=== PATIENT | female | born 1965 | race Hispanic/Latino ===

== ENCOUNTER 2017-10-10 14:38 | Emergency (ER) | payer OTHER ==
--- OUTSIDE RECORDS SUMMARY | 2017-10-10 14:41 | XMS REPORT | Clinical Summary ---
:1965 Author Organization [facility] Address [address] [place] [address] Care Team Providers Name Role Phone Sheeba Smith MD Primary Care Provider Allergies Active Allergy Reactions Severity Noted Date Comments Aspirin Anaphylaxis High 08/26/2015 Ciprofloxacin Anaphylaxis High 08/26/2015 Fish Containing Products Shortness Of Breath High 08/26/2015 shellfish Iodine Anaphylaxis High 08/26/2015 Shellfish Derived Anaphylaxis High 08/26/2015 Hydrocodone-Acetaminophen Anaphylaxis High 08/26/2015 Current Medications Prescription Sig. Disp. Refills Start Date End Date Status CALCIUM Take 1 tablet Active CARBONATE-VITAMIN D3 by mouth 2 ORAL (two) times a day. amitriptyline 06/26/2017 Active (ELAVIL) 25 MG tablet DULoxetine 05/04/2017 Active (CYMBALTA) 60 MG capsule gabapentin 06/12/2017 Active (NEURONTIN) 600 mg tablet indomethacin 06/29/2017 Active (INDOCIN) 25 MG capsule OSPHENA 60 mg tablet 06/29/2017 Active topiramate (TOPAMAX) 04/24/2017 Active 50 MG tablet traMADol (ULTRAM) 50 06/26/2017 Active mg tablet traZODone (DESYREL) 06/21/2017 Active 150 MG tablet metaxalone Take 1 tablet 60 tablet 0 10/09/2017 10/29/2017 Active (SKELAXIN) 800 MG (800 mg tablet total) by mouth every 8 (eight) hours as needed for muscle spasms for up to 20 days. desvenlafaxine Take 100 mg 07/03/2017 Discontinued (PRISTIQ) 100 MG 24 by mouth hr tablet nightly. NORETHINDRONE-E.ESTR Take 1 tablet 07/03/2017 Discontinued ADIOL-IRON by mouth (MINASTRIN 24 FE nightly. ORAL) cetirizine (ZyrTEC) Take 10 mg by 07/03/2017 Discontinued 10 MG tablet mouth daily. potassium gluconate Take 1 tablet 07/03/2017 Discontinued 595 mg (99 mg) by mouth tablet every morning. omega-3 fatty Take 1 07/03/2017 Discontinued acids-fish oil (FISH capsule by OIL) 360-1,200 mg mouth 2 (two) capsule times a day. omeprazole Take 40 mg by 07/27/2017 Discontinued (PriLOSEC) 20 MG mouth daily. capsule BIOTIN ORAL Take 500 mg 07/03/2017 Discontinued by mouth nightly. coenzyme Q10 100 mg Take 100 mg 07/03/2017 Discontinued capsule by mouth nightly. theanine 50 mg Take 200 mg 07/03/2017 Discontinued tablet,disintegratin by mouth g every morning. omeprazole 06/05/2017 07/27/2017 Discontinued (PriLOSEC) 40 MG capsule Active Problems Problem Noted Date Cervical spondylosis with radiculopathy 10/02/2017 Post traumatic stress disorder (PTSD) 08/27/2015 Bipolar II disorder, most recent episode major depressive 08/26/2015 Encounters Date Type Specialty Care Team Description 10/09/2017 Orders Only Orthopedic Surgery Devin Horvath PA 10/02/2017 Office Visit Orthopedic Surgery Lalito Kiser Cervical spondylosis with radiculopathy (Primary Dx) 09/14/2017 Hospital Encounter Radiology Lalito Kiser Cervical spondylosis with radiculopathy 09/14/2017 Hospital Encounter Radiology Lalito Kiser Cervical spondylosis with radiculopathy 09/14/2017 Procedure visit Neurology Lalito Kiser, Cervical spondylosis with radiculopathy (Primary Dx); Left arm pain; Nam Duong MD Left arm weakness 09/07/2017 Telephone Family Medicine Sheeba Smith MD 08/28/2017 Hospital Encounter Lalito Irwin MD 08/28/2017 Office Visit Orthopedic Surgery Lalito Kiser Cervical spondylosis with radiculopathy (Primary Dx) 08/28/2017 Procedure Pass Radiology 08/28/2017 Procedure Pass Radiology 08/28/2017 Ancillary Orders Lalito Irwin MD 07/27/2017 Office Visit Family Medicine Sheeba Smith, Fatigue, unspecified type (Primary Dx); Chronic bilateral low back pain without sciatica; Chronic upper back pain; Dizziness 07/20/2017 Hospital Encounter Radiology Lit Mcallister MD Breast cyst, left; Breast cyst, right 07/20/2017 Hospital Encounter Radiology Lit Mcallister MD Breast cyst, left; Breast cyst, right 07/20/2017 Ancillary Orders Access Lit Mcallister MD Breast cyst, left; Breast cyst, right 07/03/2017 Office Visit Family Medicine Sheeba Smith, Acute nonintractable headache, unspecified headache type (Primary Dx); Fatigue, unspecified type; Chronic bilateral low back pain without sciatica; Chronic upper back pain; Dizziness; Poor balance; Nausea; Expressive dysphasia 06/30/2017 Transcribe Orders Access Lit Mcallister MD Breast cyst, left ( Primary Dx); Breast cyst, right 06/29/2017 Telephone Family Medicine Carol Hendrix MA after 10/09/2016 Family History Medical History Relation Name Comments Depression Brother Post-traumatic stress disorder Brother Colon polyps Father Diabetes Father Heart attack Father Osteoarthritis Father Diabetes Maternal Grandfather Heart attack Maternal Grandfather Dementia Maternal Grandmother Depression Maternal Grandmother Diabetes Maternal Grandmother Osteoarthritis Maternal Grandmother Breast cancer Mother Depression Mother Heart attack Paternal Grandfather Osteoarthritis Paternal Grandfather Asthma Paternal Grandmother Colon polyps Paternal Grandmother Osteoarthritis Paternal Grandmother Heart attack Sister Relation Name Status Comments Brother Alive Father Alive Maternal Grandfather Maternal Grandmother Mother Alive Paternal Grandfather Paternal Grandmother Sister Alive Social History Tobacco Use Types Packs/Day Years Used Date Former Smoker Smokeless Tobacco: Never Used Alcohol Use Drinks/Week oz/Week Comments No Sex Assigned at Date Recorded Not on file Last Filed Vital Signs Vital Sign Reading Time Taken Blood Pressure 120/68 07/27/2017 10:20 AM CDT Pulse 73 07/27/2017 10:20 AM CDT Temperature 37 C (98.6 F) 07/03/2017 11:22 AM CDT Respiratory Rate 16 07/27/2017 10:20 AM CDT Oxygen Saturation 96% 07/27/2017 10:20 AM CDT Inhaled Oxygen Concentration - - Weight 68.5 kg (151 lb) 08/28/2017 11:34 AM CDT Height 149.9 cm (4' 11") 08/28/2017 11:34 AM CDT Body Mass Index 30.5 08/28/2017 11:34 AM CDT Plan of Treatment Date Type Specialty Care Team Description 10/30/2017 Office [place] [address] [facility] [address] [place] [address] [phone] 11/01/2017 Office Visit [place] [address] [place] [address] [phone] 01/10/2018 [place] [address] [facility] [address] [place] [address] [phone] Health Maintenance Due Date Last Done Comments CERVICAL CANCER SCREENING 1988 COLON CANCER SCREENING 2017 SHINGRIX VACCINE (#1) 2017 INFLUENZA VACCINE 10/25/2017 BREAST CANCER SCREENING 07/21/2019 07/20/2017, 07/20/2017, 08/14/2015, Additional history exists Procedures Procedure Name Priority Date/Time Associated Diagnosis Comments MRI CERVICAL SPINE W Routine 09/14/2017 4:36 Cervical spondylosis Results for this WO CONTRAST PM CDT with radiculopathy procedure are in the results section. ESTIMATED GFR STAT 09/14/2017 3:15 Results for this PM CDT procedure are in the results section. CREATININE, WHOLE STAT 09/14/2017 3:15 Results for this BLOOD PM CDT procedure are in the results section. CT CERVICAL SPINE WO Routine 09/14/2017 3:11 Cervical spondylosis Results for this CONTRAST PM CDT with radiculopathy procedure are in the results section. XR CERVICAL SPINE Routine 08/28/2017 10:29 Neck pain Results for this COMPLETE W FLEX EXT AM CDT procedure are in the results section. US BREAST COMPLETE Routine 07/20/2017 11:31 Breast cyst, left Results for this BILATERAL AM CDT Breast cyst, right procedure are in the results section. MAMMO BREAST Routine 07/20/2017 11:08 Breast cyst, left Results for this DIAGNOSTIC AM CDT Breast cyst, right procedure are in TOMOSYNTHESIS the results BILATERAL section. SEDIMENTATION RATE Routine 07/03/2017 12:00 Results for this AM CDT procedure are in the results section. RHEUMATOID FACTOR Routine 07/03/2017 12:00 Results for this AM CDT procedure are in the results section. VITAMIN D 25 HYDROXY Routine 07/03/2017 12:00 Results for this LEVEL AM CDT procedure are in the results section. HEMOGLOBIN A1C Routine 07/03/2017 12:00 Results for this AM CDT procedure are in the results section. T4, FREE Routine 07/03/2017 12:00 Results for this AM CDT procedure are in the results section. THYROID STIMULATING Routine 07/03/2017 12:00 Results for this HORMONE AM CDT procedure are in the results section. VITAMIN B12 AND Routine 07/03/2017 12:00 Results for this FOLATE AM CDT procedure are in the results section. LIPID PANEL Routine 07/03/2017 12:00 Results for this AM CDT procedure are in the results section. COMPREHENSIVE Routine 07/03/2017 12:00 Results for this METABOLIC PANEL AM CDT procedure are in the results section. CBC WITH PLATELET AND Routine 07/03/2017 12:00 Results for this DIFFERENTIAL AM CDT procedure are in the results section. MRI SPINE EXTERNAL Routine 01/05/2017 5:36 Results for this STUDY PM CDT procedure are in the results section. after 10/09/2016 Results MRI Cervical Spine W Wo Contrast (09/14/2017 4:36 PM) Narrative Performed At EXAMINATION: MRI CERVICAL SPINE W WO CONTRAST [facility] CLINICAL HISTORY: M47.22 Other spondylosis with radiculopathycervical region, Cervical radiculopathy COMPARISON:None TECHNIQUE: Multiplanar multisequence pre and post contrast enhanced examination was performed of the cervical spine. FINDINGS: Prior posterior fossa midline decompression changes are noted for Chiari malformation. Postcontrast enhanced imaging shows no enhancing abnormality. Spinal cord is intact without signal change. Prevert ebral soft tissues are within normal limits. Soft tissue shows no mass or adenopathy. There is mild degenerative 2 mm retrolisthesis of C5. Axial images through the disc spaces demonstrate the following: C1-C2: There is narrowing of the atlantoaxial interval with spurring. There is no significant stenosis. C2-C3: No significant posterior disc disease, spinal canal or neural foraminal stenosis. C3-C4: Uncovertebral arthrosis and facet disease is present with minimal right foraminal narrowing. C4-C5: Uncovertebral arthrosis and facet disease is present with mild right and minimal left foraminal narrowing. The canal is patent. C5-C6: There is loss of disc height, retrolisthesis C5 and posterior spondylosis with effacement of ventral thecal sac with AP dimension canal at 8.4 mm. The posterior spondylosis is calcified from disc osteophyte complex calcification noted on prior CT. Uncovertebral arthrosis and facet disease is present with severe right foraminal and. Correlate for encroachment of the right C6 nerve root. The left foramen is mild moderately stenotic. C6-C7: There is loss of disc height with posterior spondylosis with minimal canal narrowing to approximately 9.9 mm. Uncovertebral arthrosis and facet disease results in mild to moderate right foraminal narrowing. Left foramen is patent. Correlate for possible encroachment of the right nerve root. C7-T1: There is 1 mm anterolisthesis C7. There is no stenosis. No significant posterior disc disease, spinal canal or neural foraminal stenosis at other visualized levels. IMPRESSION: 1.Postoperative changes are noted with midline posterior fossa decompression for Chiari malformation. No abnormal enhancing lesion or mass identified. The spinal cord is intact. 2.Spondylosis is most prominent at C5-6 with mild canal narrowing. There is severe right and mild to moderate left foraminal narrowing. Correlate for associated radiculopathies. 3.There is mild to moderate right foraminal narrowing. There is minimal effacement thecal sac as well. [id number] Procedure Note Hm Interface, Radiology Results - 09/14/2017 6:59 PM CDT EXAMINATION: MRI CERVICAL SPINE W WO CONTRAST CLINICAL HISTORY: M47.22 Other spondylosis with radiculopathy cervical region , Cervical radiculopathy COMPARISON: None TECHNIQUE: Multiplanar multisequence pre and post contrast enhanced examination was performed of the cervical spine. FINDINGS: Prior posterior fossa midline decompression changes are noted for Chiari malformation. Postcontrast enhanced imaging shows no enhancing abnormality. Spinal cord is intact without signal change. Prevertebral soft tissues are within normal limits. Soft tissue shows no mass or adenopathy. There is mild degenerative 2 mm retrolisthesis of C5. Axial images through the disc spaces demonstrate the following: C1-C2: There is narrowing of the atlantoaxial interval with spurring. There is no significant stenosis. C2-C3: No significant posterior disc disease, spinal canal or neural foraminal stenosis. C3-C4: Uncovertebral arthrosis and facet disease is present with minimal right foraminal narrowing. C4-C5: Uncovertebral arthrosis and facet disease is present with mild right and minimal left foraminal narrowing. The canal is patent. C5-C6: There is loss of disc height, retrolisthesis C5 and posterior spondylosis with effacement of ventral thecal sac with AP dimension canal at 8.4 mm. The posterior spondylosis is calcified from disc osteophyte complex calcification noted on prior CT. Uncovertebral arthrosis and facet disease is present with severe right foraminal and. Correlate for encroachment of the right C6 nerve root. The left foramen is mild moderately stenotic. C6-C7: There is loss of disc height with posterior spondylosis with minimal canal narrowing to approximately 9.9 mm. Uncovertebral arthrosis and facet disease results in mild to moderate right foraminal narrowing. Left foramen is patent. Correlate for possible encroachment of the right nerve root. C7-T1: There is 1 mm anterolisthesis C7. There is no stenosis. No significant posterior disc disease, spinal canal or neural foraminal stenosis at other visualized levels. IMPRESSION: 1. Postoperative changes are noted with midline posterior fossa decompression for Chiari malformation. No abnormal enhancing lesion or mass identified. The spinal cord is intact. 2. Spondylosis is most prominent at C5-6 with mild canal narrowing. There is severe right and mild to moderate left foraminal narrowing. Correlate for associated radiculopathies. 3. There is mild to moderate right foraminal narrowing. There is minimal effacement thecal sac as well. [facility]-[id number] Performing Organization Address City/State/Zipcode Phone Number [facility] [address] [place] [address] Creatinine, whole blood (09/14/2017 3:15 PM) Creatinine, whole blood 0.9 0.5 - 1.5 mg/dL [facility] DEPARTMENT OF PATHOLOGY AND [employer] MEDICINE Specimen Plasma specimen Performing Organization Address City/State/Zipcode Phone Number [facility] DEPARTMENT OF PATHOLOGY [address] [place] [address] AND [employer] MEDICINE Estimated GFR (09/14/2017 3:15 PM) GFR Non Af Amer 66 mL/min/1.73 m2 [facility] DEPARTMENT OF PATHOLOGY AND GENOMIC MEDICINE GFR Af Amer 80 mL/min/1.73 m2 [facility] DEPARTMENT OF Comment: PATHOLOGY AND GENOMIC Chronic kidney disease: <60 mL/min/1.73m2 MEDICINE Kidney failure: <15 mL/min/1.73m2 The estimated GFR is calculated from the IDMS-traceable Modification of Diet in Renal Disease Equation. The accuracy of the calculation is poor when the creatinine is normal. Calculated values >90 mL/min/1.73m2 are not reported. This equation has not been validated in children (<18 years), women, the elderly (>70 years), or ethnic groups other than Caucasians and Americans. Specimen Plasma specimen Performing Organization Address City/State/Zipcode Phone Number [facility] DEPARTMENT OF PATHOLOGY [address] [facility] [place] [address] AND [employer] [facility] CT Cervical Spine Wo Contrast (09/14/2017 3:11 PM) Narrative Performed At Study: CT CERVICAL SPINE WO CONTRAST. RADIANT HISTORY: M47.22 Other spondylosis with radiculopathycervical region, Cervical radiculopathy. COMPARISON:Cervical spine x-ray August 28, 2017 TECHNIQUE: Multiple axial CT images of the cervical spine performed without intravenous contrast. Sagittal and coronal reconstructions performed. CT imaging was performed with iterative reconstruction technique and/or automated exposure control to reduce radiation dose. FINDINGS: There is mild straightening of the cervical lordosis stable from the prior exam. Vertebral body heights are within normal limits. Degenerative retrolisthesis by 1 mm stable at C5-6. No significant subluxations are seen otherwise. Mineralization is normal. No erosions. C2-3: The disc heights maintained with a very shallow disc bulge. No canal or foraminal stenosis. C3-4: Mild disc height loss with a broad shallow disc protrusion. There is very mild canal narrowing. No foraminal stenosis. C4-5: There is mild disc height loss with a broad shallow disc bulge. No canal stenosis. No foraminal stenosis. C5-6: Severe disc height loss with a broad shallow disc osteophyte complex and mild canal stenosis. Uncovertebral arthrosis and facet arthrosis result in severe right and moderate left foraminal stenosis. C6-7: There is mild disc height loss with a broad shallow disc bulge. No canal stenosis. No foraminal stenosis. C7/T1: Mild disc height loss without obvious disc protrusion. No canal or foraminal stenosis. The paravertebral soft tissues are unremarkable. IMPRESSION: Mild canal stenosis at C5-6 from a shallow disc osteophyte complex. Spondylosis results in severe right and moderate left foraminal stenosis at this level. Mild canal stenosis at C3-4 from a broad shallow disc protrusion. [id number] Procedure Note Hm Interface, Radiology Results - 09/14/2017 3:41 PM CDT Study: CT CERVICAL SPINE WO CONTRAST. HISTORY: M47.22 Other spondylosis with radiculopathy cervical region, Cervical radiculopathy. COMPARISON:Cervical spine x-ray August 28, 2017 TECHNIQUE: Multiple axial CT images of the cervical spine performed without intravenous contrast. Sagittal and coronal reconstructions performed. CT imaging was performed with iterative reconstruction technique and/or automated exposure control to reduce radiation dose. FINDINGS: There is mild straightening of the cervical lordosis stable from the prior exam. Vertebral body heights are within normal limits. Degenerative retrolisthesis by 1 mm stable at C5-6. No significant subluxations are seen otherwise. Mineralization is normal. No erosions. C2-3: The disc heights maintained with a very shallow disc bulge. No canal or foraminal stenosis. C3-4: Mild disc height loss with a broad shallow disc protrusion. There is very mild canal narrowing. No foraminal stenosis. C4-5: There is mild disc height loss with a broad shallow disc bulge. No canal stenosis. No foraminal stenosis. C5-6: Severe disc height loss with a broad shallow disc osteophyte complex and mild canal stenosis. Uncovertebral arthrosis and facet arthrosis result in severe right and moderate left foraminal stenosis. C6-7: There is mild disc height loss with a broad shallow disc bulge. No canal stenosis. No foraminal stenosis. C7/T1: Mild disc height loss without obvious disc protrusion. No canal or foraminal stenosis. The paravertebral soft tissues are unremarkable. IMPRESSION: Mild canal stenosis at C5-6 from a shallow disc osteophyte complex. Spondylosis results in severe right and moderate left foraminal stenosis at this level. Mild canal stenosis at C3-4 from a broad shallow disc protrusion. [id number] Performing Organization Address [facility] Phone Number [facility] [address] [place] [address] XR Cervical Spine Complete w flex/ext (08/28/2017 10:29 AM) Narrative Performed At 7 views of the cervical spine are reviewed.These demonstrate [facility] satisfactory coronal balance although the patient is slightly to her right.Sagittal balance is well maintained.There is marked disc space narrowing at C5-C6 with posterior osteophyte formation.Somewhat less disc space degeneration is present at C6-C7.There is no evidence of instability on flexion-extension views.Oblique views demonstrate significant foraminal stenosis at C5-6 due to uncovertebral osteophyte bilaterally.The remaining neural foramen appear to be satisfactorily patent.There is no evidence of acute fracture or subluxation.Odontoid view is unremarkable aside from 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 Computer aided detection with tomosynthesis was utilized for the interpretation. HISTORY:52-year-old female with bilateral breast pain. COMPARISON: 08/14/2015-06/11/2013. DENSITY: The breast are heterogenously dense, which may obscure small masses. MAMMOGRAM: There is a stable group of calcifications in the left upper inner quadrant at middle depth. No new suspicious mass, asymmetry or architectural distortion in either breast. ULTRASOUND: There are a few scattered benign simple cysts in both breasts. No suspicious mass or acoustic abnormality in either breast. IMPRESSION:No mammographic or sonographic evidence of malignancy RECOMMENDATION: Resumption of annual mammography and clinical correlation for the bilateral breast pain. BI-RADS 2: BENIGN DWS01 Performing Organization Address [facility] Phone Number [facility] [address] [place] [address] Mammo Breast Diagnostic Tomosynthesis Bilateral (07/20/2017 11:08 AM) Narrative Performed At PROCEDURE: MAMMO BREAST DIAGNOSTIC TOMOSYNTHESIS BILATERAL, US BREAST RADIANT COMPLETE BILATERAL Bilateral real-time whole breast sonography included all four quadrants and the retroareolar regions under close supervision by the radiologist. Computer aided detection with tomosynthesis was utilized for the interpretation. HISTORY:52-year-old female with bilateral breast pain. COMPARISON: 08/14/2015-06/11/2013. DENSITY: The breast are heterogenously dense, which may obscure small masses. MAMMOGRAM: There is a stable group of calcifications in the left upper inner quadrant at middle depth. No new suspicious mass, asymmetry or architectural distortion in either breast. ULTRASOUND: There are a few scattered benign simple cysts in both breasts. No suspicious mass or acoustic abnormality in either breast. IMPRESSION:No mammographic or sonographic evidence of malignancy RECOMMENDATION: Resumption of annual mammography and clinical correlation for the bilateral breast pain. BI-RADS 2: BENIGN DWS01 Performing Organization Address [facility] Phone Number [facility] [address] [place] [address] Vitamin B12 and Folate (07/03/2017) Vitamin B12 437 232 - 1,245 pg/mL [facility] Folate 4.6 >3.0 ng/mL [facility] Comment: A serum folate concentration of less than 3.1 ng/mL is considered to represent clinical deficiency. Narrative Performed At Performed at:01 - [facility] [address], [id number] Volleyball Coach: Donn Hobbs MD, Phone:[phone] Performing Organization Address [facility] Phone Number [facility] Vitamin D 25 hydroxy level (07/03/2017) Vitamin D, 25-hydroxy 23.6 (L) 30.0 - 100.0 ng/mL [facility] Comment: Vitamin D deficiency has been defined by the [place] of [employer] and an Endocrine Society practice guideline as a level of serum 25-OH vitamin D less than 20 ng/mL (1,2). The Endocrine Society went on to further define vitamin D insufficiency as a level between 21 and 29 ng/mL (2). 1. IOM ([place] of Medicine). 2010. Dietary reference intakes for calcium and D. [place]: The National Academies Press. 2. Dolly MF, Denny ARRINGTON, Gin NELSON, et al. Evaluation, treatment, and prevention of vitamin D deficiency: an Endocrine Society clinical practice guideline. JCEM. 2010; 96(2):4061-30. Narrative Performed At Performed at:01 - [facility] [address], [id number] Volleyball Coach: Donn Hobbs MD, Phone:[phone] Performing Organization Address The [facility] Phone Number [facility] Sedimentation rate (07/03/2017) Sedimentation rate 2 0 - 40 mm/hr [facility] Narrative Performed At Performed at:01 - [facility] [address], [id number] Volleyball Coach: Donn Hobbs MD, Phone:[phone] Performing Organization Address [facility] [place] Phone Number [facility] CBC with platelet and differential (07/03/2017) WBC 6.9 3.4 - 10.8 x10E3/uL [facility] RBC 4.70 3.77 - 5.28 x10E6/uL [facility] HGB 13.5 11.1 - 15.9 g/dL [facility] HCT 40.6 34.0 - 46.6 % [facility] MCV 86 79 - 97 fL [facility] MCH 28.7 26.6 - 33.0 pg [facility] MCHC 33.3 31.5 - 35.7 g/dL [facility] RDW 14.8 12.3 - 15.4 % [facility] Platelet count 295 150 - 379 x10E3/uL [facility] Neutrophils 53 Not Estab. % [facility] Lymphocytes 40 Not Estab. % [facility] Monocytes 5 Not Estab. % [facility] Eosinophils 2 Not Estab. % [facility] Basophils 0 Not Estab. % [facility] Neutrophils, absolute 3.5 1.4 - 7.0 x10E3/uL [facility] Lymphocytes, absolute 2.8 0.7 - 3.1 x10E3/uL [facility] Monocytes, absolute 0.4 0.1 - 0.9 x10E3/uL [facility] Eosinophils, absolute 0.2 0.0 - 0.4 x10E3/uL [facility] Basophils, absolute 0.0 0.0 - 0.2 x10E3/uL [facility] Immature granulocytes 0 Not Estab. % [facility] Immature grans (abs) 0.0 0.0 - 0.1 x10E3/uL [facility] Narrative Performed At Performed at:[address] [place], [place] [id number] Volleyball Coach: Donn Hobbs MD, Phone:[phone] Specimen Comment: A duplicate report has been generated due to demographic updates. Performing Organization Address [facility] [place] [facility] Phone Number [facility] Rheumatoid factor (07/03/2017) Rheumatoid arthritis latex turbid <10.0 0.0 - 13.9 IU/mL [facility] Narrative Performed At Performed at:[address] [place], [place] [id number] Volleyball Coach: Donn Hobbs MD, Phone:[phone] Performing Organization Address [facility] [place] Phone Number [facility] Thyroid stimulating hormone (07/03/2017) TSH 1.200 0.450 - 4.500 uIU/mL [facility] Narrative Performed At Performed at:[address] [place], [place] [id number] Volleyball Coach: Donn Hobbs MD, Phone:[phone] Performing Organization Address [facility] [place] Phone Number [facility] T4, free (07/03/2017) T4, free 0.97 0.82 - 1.77 ng/dL [facility] Narrative Performed At Performed at:[address] [place], [place] [id number] Volleyball Coach: Donn Hobbs MD, Phone:[phone] Performing Organization Address [facility] [place] Phone Number [facility] Hemoglobin A1c (07/03/2017) Hemoglobin A1C 6.1 (H) 4.8 - 5.6 % [facility] Comment: Pre-diabetes: 5.7 - 6.4 Diabetes: >6.4 Glycemic control for adults with diabetes: <7.0 Narrative Performed At Performed at:[address] [place], [place] [id number] Volleyball Coach: Donn Hobbs MD, Phone:[phone] Performing Organization Address [facility] [place] Phone Number [facility] Lipid panel (07/03/2017) Cholesterol 215 (H) 100 - 199 mg/dL [facility] Triglycerides 193 (H) 0 - 149 mg/dL [facility] HDL cholesterol 51 >39 mg/dL [facility] VLDL cholesterol sam 39 5 - 40 mg/dL [facility] LDL cholesterol calculated 125 (H) 0 - 99 mg/dL [facility] Non-HDL cholesterol 164 (H) 0 - 129 mg/dL [facility] Narrative Performed At Performed at:01 - [facility] [address], [id number] Volleyball Coach: Donn Hobbs MD, Phone:[phone] Performing Organization Address [facility] [place] Phone Number [facility] Comprehensive metabolic panel (07/03/2017) Glucose 94 65 - 99 mg/dL [facility] BUN, whole blood 12 6 - 24 mg/dL [facility] Creatinine 0.78 0.57 - 1.00 mg/dL [facility] EGFR Non-Afr. Sammarinese 89 >59 mL/min/1.73 [facility] EGFR 103 >59 mL/min/1.73 [facility] BUN/creatinine ratio 15 9 - 23 [facility] Sodium 143 134 - 144 mmol/L [facility] Potassium 4.0 3.5 - 5.2 mmol/L [facility] Chloride 104 96 - 106 mmol/L [facility] CO2 21 18 - 29 mmol/L [facility] Calcium 9.0 8.7 - 10.2 mg/dL [facility] Protein 6.8 6.0 - 8.5 g/dL [facility] Albumin, S 4.5 3.5 - 5.5 g/dL [facility] Globulin, total 2.3 1.5 - 4.5 g/dL [facility] Albumin/globulin ratio 2.0 1.2 - 2.2 [facility] Total bilirubin 0.3 0.0 - 1.2 mg/dL [facility] Alkaline phosphatase 58 39 - 117 IU/L [facility] AST 13 0 - 40 IU/L [facility] ALT 13 0 - 32 IU/L [facility] Narrative Performed At Performed at: - [facility] [address], [id number] Volleyball Coach: Donn Hobbs MD, Phone:[phone] Performing Organization Address City/State/Zipcode Phone Number [facility] MRI Spine External Study (01/05/2017 5:36 PM) Narrative Performed At This exam was not acquired at a [facility] facility and has not been [facility] interpreted by a [employer] Provider.The exam was imported into our imaging system for comparisons purposes. Performing Organization Address City/[facility]/Zipcode Phone Number [facility] [address] [place] [address] after 10/09/2016 Insurance Payer Benefit Plan / Group Subscriber ID Type Phone Address [facility] CHOICE/CHOICE + xxxxxxxxx HMO/PPO Home: [facility] [phone] [place], [place] [phone]
--- NOTE | 2017-10-10 15:33 | RAD REPORT ---
EXAM DESCRIPTION: CT - Head Brain Wo Cont - 10/10/2017 3:21 pm CLINICAL HISTORY: Pain, headache COMPARISON: June 2016 TECHNIQUE: Axial helical acquisition with 5 millimeter thick images of the head were obtained withou t IV contrast. Thin section sagittal and coronal imaging in bone window settings generated and review ed. All CT scans are performed using dose optimization technique as appropriate and may include automated exposure control or mA/KV adjustment according to patient size. FINDINGS: No intracranial hemorrhage, mass, edema or shift of mid-line structures. No acute infarcti on changes seen. No abnormal extra-axial fluid collections. Ventricles are normal. Mastoid air cells and visualized portions of the paranasal sinuses are clear. No acute bone findings seen. The patient is status post suboccipital craniectomy. Posterior arch of C 1 is incomplete and this may be a normal variant or surgical resection. Patient's cerebellar tonsils are relatively low-lying. Postsurgical changes are similar to the comparison. IMPRESSION: Negative non-contrast CT head examination for acute finding. Postsurgical changes presumed to be related to tonsillar ectopia/Chiari 1 malformation. No significant change from June 2016.
[2017-10-10] MEDS ORDERED: FENTANYL CITR 100 MCG/2 ML ONE (15:49)
[2017-10-10] MEDS ORDERED: ONDANSETRON 4 MG/2 ML VIAL ONE ×2 (15:49→18:04)
[2017-10-10] MEDS ORDERED: NA CHLORIDE 0.9% 1,000 ML ONE (15:49)
[2017-10-10 16:08] LABS: Absolute Lymphocytes (CBC) 2.9 K/uL (0.7-4.9); Absolute Monocytes 0.4 K/uL (0.1-1.3); Absolute Neutrophil 2.8 K/uL (1.8-8.0); Basophils % 0.9 % (0-1.3); Eosinophils % 2.2 % (0-4.4); Hematocrit 35.1 % (36.0-45.0); Lymphocytes % 46.2 % (15.3-44.8); MCH 29.6 pg (27.0-35.0); MCV 87.8 fL (80-100); MPV 8.4 fL (7.6-11.3); Monocytes % 6.1 % (3.3-12.3); RBC Red Blood Cell Count 3.99 M/uL (3.86-4.86)
--- NOTE | 2017-10-10 16:28 | RAD REPORT ---
EXAM DESCRIPTION: RAD - Chest Single View - 10/10/2017 4:10 pm CLINICAL HISTORY: COUGH Chest pain. COMPARISON: Chest Single View dated 03/17/2016; Chest Single View dated 08/20/2015; CHEST PA AND LAT 2 VIEW dated 08/15/2012Chest Single View dated 03/17/2016; Chest Single View dated 08/20/2015; CHEST PA AND LAT 2 VIEW dated 08/15/2012; Outpt Chest Pa/Lat (2 Views) dated 01/30/2017 FINDINGS: Portable technique limits examination quality. The lungs are grossly clear. The heart is normal in size. No displaced fractures. IMPRESSION: No acute intrathoracic process suspected.
[2017-10-10 16:32] LABS: ALT/SGPT 16 U/L (12-78); AST/SGOT 12 U/L (15-37); Albumin 3.1 g/dL (3.4-5.0); Alkaline Phosphatase 62 U/L (45-117); BUN Blood Urea Nitrogen 13 mg/dL (7-18); Bicarbonate 27 mmol/L (21-32); Bilirubin Direct < 0.1 mg/dL (0-0.2); Bilirubin Total 0.2 mg/dL (0.2-1.0); CKMB Creatine Kinase MB < 1.0 ng/mL (0.3-3.6); Creatine Phosphokinase 43 U/L (26-192); Glucose Level 107 mg/dL (74-106); NT PRO-BNP 17 pg/mL (<125); Potassium 3.6 mmol/L (3.5-5.1); Protein, Total 6.3 g/dL (6.4-8.2); Sodium Level 144 mmol/L (136-145)
[2017-10-10 16:42] LABS: Urine Blood NEGATIVE (NEG); Urine Glucose NEGATIVE (NEG); Urine Protein NEGATIVE (NEG); Urine Specific Gravity 1.025 (1.005-1.030)
[2017-10-10 16:42] LABS: Urine Specific Gravity 1.025 (1.005-1.030)
[2017-10-10] MEDS ORDERED: HYDROMORPHONE HCL 1 MG/ML INJ ONE (17:17)
--- NOTE | 2017-10-10 18:34 | ER ---
Nurse's Notes [facility] Name: Jennifer Jansen Age: 52 yrs Sex: Female : 1965 Arrival Date: 10/10/2017 Time: 14:44 Bed 13 Private MD: Diagnosis: Headache;Strain of muscle, fascia and tendon at neck level Presentation: 10/10 14:44 Presenting complaint: EMS states: pt was at [facility] rehab for pain mgmt, hx of tumor iw removal in 2014, hx of Chiari malformation, pt c/o weakness since yesterday, mild headache sine yesterday, pain worse today, pain radiates from right posterior neck up to jaw and into right side of head, 01/03, also has had "bouts of aphasia" that have resolved, pt vomited X 2 en route to ER. Transition of care: patient was not received from another setting of care. Onset of symptoms was October 09, 2017. Risk Assessment: Do you want to hurt yourself or someone else? Patient reports no desire to harm self or others. Initial Sepsis Screen: Does the patient meet any 2 criteria? No. Patient's initial sepsis screen is negative. Does the patient have a suspected source of infection? No. Patient's initial sepsis screen is negative. Care prior to arrival: Medication(s) given: zofran 4 mg, IV initiated. 20 GA, in the right antecubital area, Glucose check: 119. 14:44 Method Of Arrival: EMS: [facility] iw 14:44 Acuity: ARTHUR 3 iw Historical: - Allergies: 14:50 Aspirin; iw 14:50 Ciprofloxacin; iw 14:50 Iodine; iw 14:50 Propranolol; iw 14:50 shellfish derived; iw 14:50 sulfamethoxazole; iw 14:50 TRIMETHOPRIM; iw - PMHx: 14:50 chiari malformation; pseudoseizures; iw - PSHx: 14:50 Cholecystectomy; Knee surgery; Brain sx; C1 laminectomy; iw - Immunization history:: Adult Immunizations up to date. - Ebola Screening: : Patient negative for fever greater than or equal to 101.5 degrees Fahrenheit, and additional compatible Ebola Virus Disease symptoms Patient denies exposure to infectious person Patient denies travel to an Ebola-affected area in the 21 days before illness onset No symptoms or risks identified at this time. - Social history:: Smoking status: Patient/guardian denies using tobacco. - Family history:: not pertinent. Screenin:14 Abuse screen: Denies threats or abuse. Denies injuries from another. Nutritional aj screening: No deficits noted. Tuberculosis screening: No symptoms or risk factors identified. Fall Risk None identified. Assessment: 15:14 General: Appears in no apparent distress. comfortable, Behavior is calm, cooperative, aj appropriate for age. Pain: Complains of pain in right occipital area, right ear, right yazidism, right eye, right base of the skull, right low back and right quadriceps. Neuro: Level of Consciousness is awake, alert, obeys commands, Oriented to person, place, time, situation, Appropriate for age Building Official are equal bilaterally Moves all extremities. Full function Speech is normal, Facial symmetry appears normal, Pupils are PERRLA, Reports headache. Neuro: Reports blurred vision. Respiratory: Airway is patent Respiratory effort is even, unlabored, Respiratory pattern is regular, symmetrical. Derm: Skin is intact, is healthy with good turgor, Skin is pink, warm \\T\\ dry. normal. 17:30 Reassessment: Report received from LISA Martinez. Pt currently in MRI. aa5 17:50 Reassessment: Pt back from MRI. aa5 17:55 General: Appears comfortable, Behavior is calm, cooperative. Pain: Complains of pain in aa5 right side of head and face Pain currently is 8 out of 10 on a pain scale. Quality of pain is described as sharp, Is continuous. Neuro: Level of Consciousness is awake, alert, obeys commands, Oriented to person, place, time, situation, Building Official are equal bilaterally Moves all extremities. Speech is normal, Facial symmetry appears normal, Pupils are PERRLA, Reports headache. Cardiovascular: Heart tones S1 S2 present Rhythm is regular. Respiratory: Airway is patent Respiratory effort is even, unlabored, Respiratory pattern is regular, symmetrical, Breath sounds are clear bilaterally. GI: Abdomen is round non-distended, Bowel sounds present X 4 quads. Abd is soft and non tender X 4 quads. Reports nausea, vomiting. : No signs and/or symptoms were reported regarding the genitourinary system. EENT: No signs and/or symptoms were reported regarding the EENT system. Derm: Skin is pink, warm \\T\\ dry. Musculoskeletal: Range of motion: intact in all extremities. 18:00 Reassessment: Dr. Nelson notified of pt's complaint of nausea. . aa5 18:55 Reassessment: Patient is alert, oriented x 3, equal unlabored respirations, skin aa5 warm/dry/pink. Vital Signs: 14:49 BP 111 / 75; Pulse 73; Resp 16; Pulse Ox 99% on R/A; Weight 70.31 kg; Height 4 ft. 10 iw in. (147.32 cm); Pain 10/10; 15:50 BP 113 / 84; Pulse 72; Resp 16; Pulse Ox 100% on R/A; mh5 16:31 BP 110 / 64; Pulse 66; Resp 16; Pulse Ox 100% on R/A; aj 17:49 BP 128 / 74; Pulse 58; Resp 17; Pulse Ox 100% on R/A; mh5 18:00 BP 105 / 56; Pulse 64; Resp 16 S; Temp 97.6(TE); Pulse Ox 100% on R/A; Pain 8/10; aa5 18:45 BP 105 / 58; Pulse 62; Resp 16 S; Pulse Ox 99% on R/A; aa5 14:49 Body Mass Index 32.39 (70.31 kg, 147.32 cm) iw ED Course: 14:44 Patient arrived in ED. iw 14:45 Corey Nelson MD is Attending Physician. [facility] 14:48 Michelle Oliver, RN is Primary Nurse. aj 14:49 Triage completed. iw 15:14 Patient has correct armband on for positive identification. aj 15:14 No provider procedures requiring assistance completed. Maintain EMS IV. Dressing aj intact. Gauge \\T\\ site: 20 to right AC. 15:21 CT Head Brain wo Cont In Process Unspecified. EDMS 15:21 CT completed. Patient tolerated procedure well. Patient moved to CT. Patient moved back mw3 from CT. 16:01 EKG done, by optical laboratory technician. reviewed by Corey Nelson MD. 3 16:08 X-ray completed. Portable x-ray completed in exam room. Patient tolerated procedure bb2 well. 16:09 XRAY Chest (1 view) In Process Unspecified. EDMS 16:34 Urine --Ancillary (enter results) Sent. aj 16:34 Urine Dipstick--Ancillary (enter results) Sent. aj 17:13 Patient moved to MRI via wheelchair. em2 17:41 MRI completed. Patient tolerated well. Patient moved back from MRI. em2 17:44 MRI - Brain Wo Cont In Process Unspecified. EDMS 18:55 IV discontinued, intact, bleeding controlled, No redness/swelling at site. Pressure aa5 dressing applied. Administered Medications: 15:54 Drug: NS 0.9% 1000 ml Route: IV; Rate: 1 bolus; Site: right antecubital; aj 15:54 Drug: fentaNYL (PF) 50 mcg Route: IVP; Site: right antecubital; aj 16:32 Follow up: Response: Pain is decreased aj 15:54 Drug: Zofran 4 mg Route: IVP; Site: right antecubital; aj 16:32 Follow up: Response: No adverse reaction aj 17:10 Drug: Dilaudid 1 mg Route: IVP; Site: right antecubital; aj 17:50 Follow up: Response: No adverse reaction aa5 17:29 Not Given (Duplicate Order): Zofran 4 mg IVP once; over 2 minutes aj 18:07 Drug: Zofran 4 mg Route: IVP; Site: right antecubital; iw 18:16 Follow up: Response: No adverse reaction aa5 Point of Care Testing: Blood Glucose: 15:17 Blood Glucose: 111 mg/dL; aj Ranges: Outcome: 18:34 Discharge ordered by . lary 18:55 Discharged to home via wheelchair, with significant other. aa5 18:55 Condition: stable 18:55 Discharge instructions given to patient, significant other, Instructed on discharge instructions, follow up and referral plans. medication usage, Demonstrated understanding of instructions, follow-up care, medications, Prescriptions given X 2. 18:59 Patient left the ED. ak1 Signatures: Dispatcher [employer] EDMS Michelle Oliver RN RN aj Anderson, Corey, MD MD cha Williams, Irene, RN RN Marily Genao RN RN aa5 Romel Sousa em2 Keerthi Hunt RN RN ak1 Whitney Mendez 5 Debbie Teresa 2 Donita Sousa 3 Jhoana Escobar mw3 Corrections: (The following items were deleted from the chart) 18:17 18:00 BP 105 / 56; Pulse 64bpm; Resp 16bpm; Spontaneous; Pulse Ox 100% RA; Pain 8/10; aa5 aa5
--- NOTE | 2017-10-10 18:34 | EDPHYS ---
Physician Documentation [facility] Name: Jennifer Jansen Age: 52 yrs Sex: Female : 1965 Arrival Date: 10/10/2017 Time: 14:44 Bed 13 Private MD: ED Physician Corey Nelson HPI: 10/10 15:41 This 52 yrs old Female presents to ER via EMS with complaints of Headache, lary Neck Pain, >24Hrs Old. 15:41 The patient complains of pain to the forehead, right eye, right temporal area and right lary side of forehead. The patient describes the headache as intermittent. Onset: The symptoms/episode began/occurred yesterday, 1 day(s) ago. Associated signs and symptoms: The patient has no apparent associated signs or symptoms. Severity of symptoms: At its worst the pain was mild, moderate, in the emergency department the pain has improved, mildly. Headache History: The patient has had previous headaches and this one is similar to previous episodes. The symptoms are alleviated by Darkened room, remaining still, the symptoms are aggravated by nothing. The patient has experienced similar episodes in the past, a few times. 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 - Ebola Screening: : Patient negative for fever greater than or equal to 101.5 degrees Fahrenheit, and additional compatible Ebola Virus Disease symptoms Patient denies exposure to infectious person Patient denies travel to an Ebola-affected area in the 21 days before illness onset No symptoms or risks identified at this time. - Social history:: Smoking status: Patient/guardian denies using tobacco. - Family history:: not pertinent. ROS: 15:41 Constitutional: Negative for fever, chills, and weight loss, Eyes: Negative for injury, lary pain, redness, and discharge, ENT: Negative for injury, pain, and discharge, Neck: Negative for injury, pain, and swelling, Cardiovascular: Negative for chest pain, palpitations, and edema, Respiratory: Negative for shortness of breath, cough, wheezing, and pleuritic chest pain, Abdomen/GI: Negative for abdominal pain, nausea, vomiting, diarrhea, and constipation, Back: Negative for injury and pain, : Negative for injury, bleeding, discharge, and swelling, MS/Extremity: Negative for injury and deformity, Skin: Negative for injury, rash, and discoloration, Psych: Negative for depression, anxiety, suicide ideation, homicidal ideation, and hallucinations, Allergy/Immunology: Negative for hives, rash, and allergies, Endocrine: Negative for neck swelling, polydipsia, polyuria, polyphagia, and marked weight changes, Hematologic/Lymphatic: Negative for swollen nodes, abnormal bleeding, and unusual bruising. 15:41 Neuro: Positive for headache. Exam: 15:41 Constitutional: This is a well developed, well nourished patient who is awake, alert, lary and in no acute distress. Head/Face: Normocephalic, atraumatic. Eyes: Pupils equal round and reactive to light, extra-ocular motions intact. Lids and lashes normal. Conjunctiva and sclera are non-icteric and not injected. Cornea within normal limits. Periorbital areas with no swelling, redness, or edema. ENT: Nares patent. No nasal discharge, no septal abnormalities noted. Tympanic membranes are normal and external auditory canals are clear. Oropharynx with no redness, swelling, or masses, exudates, or evidence of obstruction, uvula midline. Mucous membranes moist. Neck: Trachea midline, no thyromegaly or masses palpated, and no cervical lymphadenopathy. Supple, full range of motion without nuchal rigidity, or vertebral point tenderness. No Meningismus. Chest/axilla: Normal chest wall appearance and motion. Nontender with no deformity. No lesions are appreciated. Cardiovascular: Regular rate and rhythm with a normal S1 and S2. No gallops, murmurs, or rubs. Normal PMI, no JVD. No pulse deficits. Respiratory: Lungs have equal breath sounds bilaterally, clear to auscultation and percussion. No rales, rhonchi or wheezes noted. No increased work of breathing, no retractions or nasal flaring. Abdomen/GI: Soft, non-tender, with normal bowel sounds. No distension or tympany. No guarding or rebound. No evidence of tenderness throughout. Back: No spinal tenderness. No costovertebral tenderness. Full range of motion. Pelvic Exam: Normal external genitalia. Speculum exam with closed cervical os, no discharge or bleeding noted. Bimanual exam with normal adnexa, no adnexal or cervical motion tenderness. Normal uterus. Skin: Warm, dry with normal turgor. Normal color with no rashes, no lesions, and no evidence of cellulitis. MS/ Extremity: Pulses equal, no cyanosis. Neurovascular intact. Full, normal range of motion. Neuro: Awake and alert, GCS 15, oriented to person, place, time, and situation. Cranial nerves II-XII grossly intact. Motor strength 5/5 in all extremities. Sensory grossly intact. Cerebellar exam normal. Normal gait. Psych: Awake, alert, with orientation to person, place and time. Behavior, mood, and affect are within normal limits. Vital Signs: 14:49 BP 111 / 75; Pulse 73; Resp 16; Pulse Ox 99% on R/A; Weight 70.31 kg; Height 4 ft. 10 iw in. (147.32 cm); Pain 10/10; 15:50 BP 113 / 84; Pulse 72; Resp 16; Pulse Ox 100% on R/A; mh5 16:31 BP 110 / 64; Pulse 66; Resp 16; Pulse Ox 100% on R/A; aj 17:49 BP 128 / 74; Pulse 58; Resp 17; Pulse Ox 100% on R/A; mh5 18:00 BP 105 / 56; Pulse 64; Resp 16 S; Temp 97.6(TE); Pulse Ox 100% on R/A; Pain 8/10; aa5 18:45 BP 105 / 58; Pulse 62; Resp 16 S; Pulse Ox 99% on R/A; aa5 14:49 Body Mass Index 32.39 (70.31 kg, 147.32 cm) iw MDM: 14:45 Patient medically screened. [facility] 15:44 Data reviewed: vital signs, nurses notes, lab test result(s), EKG, radiologic studies, [facility] doppler, MRI, plain films. 10/10 15:41 Order name: Basic Metabolic Panel; Complete Time: 17:01 [facility] 10/10 15:41 Order name: CBC with Diff; Complete Time: 17:01 [facility] 10/10 15:41 Order name: Ckmb; Complete Time: 17: [facility] 10/10 15:41 Order name: CPK; Complete Time: 17:01 [facility] 10/10 15:41 Order name: LFT's; Complete Time: 17: [facility] 10/10 15:41 Order name: Magnesium; Complete Time: 17: [facility] 10/10 15:41 Order name: NT PRO-BNP; Complete Time: 17:01 [facility] 10/10 15:41 Order name: PT-INR; Complete Time: 17: [facility] 10/10 15:41 Order name: Ptt, Activated; Complete Time: 17: [facility] 10/10 15:41 Order name: Troponin (emerg Dept Use Only); Complete Time: 17: [facility] 10/10 15:41 Order name: Urine Culture [facility] 10/10 16:07 Order name: Urine Dipstick--Ancillary (enter results) 10/10 16:07 Order name: Urine Dipstick-Ancillary; Complete Time: 17:01 [facility] 10/10 16:08 Order name: Urine --Ancillary (enter results) 10/10 15:04 Order name: FSBS; Complete Time: 15:18 [facility] 10/10 15:04 Order name: CT Head Brain wo Cont; Complete Time: 15:37 [facility] 10/10 15:41 Order name: XRAY Chest (1 view); Complete Time: 17:01 [facility] 10/10 15:41 Order name: EKG; Complete Time: 15:42 [facility] 10/10 15:41 Order name: Cardiac monitoring; Complete Time: 15:59 [facility] 10/10 15:41 Order name: MRI - Brain Wo Cont [facility] 10/10 16:08 Order name: Urine --Ancillary; Complete Time: 17:01 [facility] 10/10 16:42 Order name: Glucose, Ancillary Testing; Complete Time: 17:01 [facility] 10/10 15:41 Order name: EKG - Nurse/Tech; Complete Time: 15:59 [facility] 10/10 15:41 Order name: IV Saline Lock; Complete Time: 16:00 [facility] 10/10 15:41 Order name: Labs collected and sent; Complete Time: 16:00 [facility] 10/10 15:41 Order name: O2 Per Protocol; Complete Time: 16:00 [facility] 10/10 15:41 Order name: O2 Sat Monitoring; Complete Time: 16:00 [facility] 10/10 15:41 Order name: Urine Dipstick-Ancillary (obtain specimen); Complete Time: 16:00 lary Administered Medications: 15:54 Drug: NS 0.9% 1000 ml Route: IV; Rate: 1 bolus; Site: right antecubital; aj 15:54 Drug: fentaNYL (PF) 50 mcg Route: IVP; Site: right antecubital; aj 16:32 Follow up: Response: Pain is decreased aj 15:54 Drug: Zofran 4 mg Route: IVP; Site: right antecubital; aj 16:32 Follow up: Response: No adverse reaction aj 17:10 Drug: Dilaudid 1 mg Route: IVP; Site: right antecubital; aj 17:50 Follow up: Response: No adverse reaction aa5 17:29 Not Given (Duplicate Order): Zofran 4 mg IVP once; over 2 minutes aj 18:07 Drug: Zofran 4 mg Route: IVP; Site: right antecubital; iw 18:16 Follow up: Response: No adverse reaction aa5 Point of Care Testing: Blood Glucose: 15:17 Blood Glucose: 111 mg/dL; aj Ranges: Critical Glucose Levels:Adult <50 mg/dl or >400 mg/dl <40 mg/dl or >180 mg/dl Disposition: 10/10/17 18:34 Discharged to Home. Impression: Headache, Strain of muscle, fascia and tendon at neck level. - Condition is Stable. - Discharge Instructions: General Headache Without Cause, General Headache Without Cause, [id number]. - Prescriptions for Tylenol- Codeine #3 300-30 mg Oral Tablet - take 2 tablets by ORAL route every 6 hours As needed; 24 tablet. Zofran 4 mg Oral Tablet - take 1 tablet by ORAL route every 12 hours As needed; 14 tablet. - Medication Reconciliation Form, Thank You Letter, Antibiotic Education, Prescription Opioid Use form. - Follow up: Private Physician; When: 2 - 3 days; Reason: Recheck today's complaints, Continuance of care, Re-evaluation by your physician. - Problem is new. - Symptoms have improved. Signatures: Dispatcher [employer] Michelle Carrillo RN RN aj Anderson, Corey, MD MD cha Therrien, Shelly, ACCOUNTANT ASSISTANT-C ACCOUNTANT ASSISTANT-Csnw Evelia Elkins RN RN iw Krenek, Amber, RN RN ak1 Marily Genao RN aa5 Corrections: (The following items were deleted from the chart) 18:59 18:34 10/10/2017 18:34 Discharged to Home. Impression: Headache; Strain of muscle, ak1 fascia and tendon at neck level. Condition is Stable. Discharge Instructions: General Headache Without Cause, General Headache Without Cause, [id number]. Prescriptions for Tylenol-Codeine #3 300-30 mg Oral Tablet - take 2 tablets by ORAL route every 6 hours As needed; 24 tablet, Zofran 4 mg Oral Tablet - take 1 tablet by ORAL route every 12 hours As needed; 14 tablet. and Forms are Medication Reconciliation Form, Thank You Letter, Antibiotic Education, Prescription Opioid Use. Follow up: Private Physician; When: 2 - 3 days; Reason: Recheck today's complaints, Continuance of care, Re-evaluation by your physician. Problem is new. Symptoms have improved. lary
--- NOTE | 2017-10-10 18:35 | RAD REPORT ---
EXAM DESCRIPTION: MRI - Brain Wo Cont - 10/10/2017 5:44 pm CLINICAL HISTORY: Right-sided head and neck pain, blurred vision, dizziness, history of Chiari malfo rmation with surgery COMPARISON: CT head same date, MRI July 2015 TECHNIQUE: Sagittal T1-weighted images were obtained along with axial PD, heavily T2-weighted and T2 -FLAIR images. Axial DWI and ADC mapping sequences were also obtained along with coronal heavily T2-w eighted images. FINDINGS: No intracranial hemorrhage, mass or acute infarction. There is no edema or shift of midlin e structures. No extra-axial fluid collections. Lerner-matter/white matter junction is preserved. Signa l voids are seen as a normal finding in the major intracranial vessels. No sella or supra sella abnor mality. No globe or orbital content abnormality seen. Suboccipital craniectomy defect identified. No new or suspicious cerebellar tonsil finding. Posterior cranial fossa findings are stable back to the 2016 study. Mastoid air cells and paranasal sinuses are clear. IMPRESSION: Negative non-contrast MRI of the Brain for acute finding. Above detailed findings are stable back to July 2015.
[2017-10-10 19:04] VITALS: O2SAT 100
[2017-10-10 19:08] VITALS: BP 105/56; TEMP 97.6
--- NOTE | 2017-10-11 06:02 | EKG ---
Test Date: 2017-10-10 Test Time: 15:53:22 [employer] Operator: MEDARDO MEASUREMENT RESULTS: Intervals: Rate: 63 LA: 156 QRSD: 82 QT: 430 QTc: 440 [place]: P: 28 LA: 156 QRS: 13 T: 41 INTERPRETIVE STATEMENTS: Normal sinus rhythm Normal ECG Compared to ECG 01/30/2017 14:12:05 No significant changes Electronically Signed On 10-11-17 06:02:18 CDT by Xavi Aldridge
== END 2017-10-10 18:59 | disposition home or self-care (01) ==
LOC: ER 14:38
DX: S16.1XXA Strain of muscle, fascia and tendon at neck level, initial encounter (principal); Z88.1 Allergy status to other antibiotic agents; Z88.2 Allergy status to sulfonamides; Z88.6 Allergy status to analgesic agent; Z88.8 Allergy status to other drugs, medicaments and biological substances; Z91.013 Allergy to seafood
CPT/HCPCS: 36415; 70450; 70551; 71045; 80048; 80076; 81003; 81025; 82550; 82553; 82962; 83735; 83880; 84484; 85025; 85610; 85730; 87086; 87088; 93005; 96374; 96375; 99284; J1170; J2405; J3010; J7030

== ENCOUNTER 2018-09-10 22:11 | Inpatient (IN) | payer OTHER ==
--- OUTSIDE RECORDS SUMMARY | 2018-09-10 22:17 | XMS REPORT | Clinical Summary ---
:1965 Author Organization [facility] Address [address] [place] [address] Care Team Providers Name Role Phone Sheeba Smith MD Primary Care Provider Allergies Active Allergy Reactions Severity Noted Date Comments Adhesive Tape-Silicones 03/13/2018 rash Sulfamethoxazole-Trimethoprim Anaphylaxis High 11/01/2017 Ciprofloxacin Anaphylaxis High 08/26/2015 Fish Containing Products Shortness Of Breath High 08/26/2015 shellfish Iodine Anaphylaxis High 08/26/2015 Propranolol GI Intolerance 11/01/2017 Shellfish Derived Anaphylaxis High 08/26/2015 Medications Medication Sig Dispensed Refills Start End Status Date Date CALCIUM Take 1 tablet 0 Active CARBONATE-VITAMIN D3 by mouth 2 ORAL (two) times a day. OSPHENA 60 mg tablet Take 1 tablet 0 Active by mouth 8 nightly. loratadine (CLARITIN) Take 10 mg by 0 Active 10 mg tablet mouth daily. potassium 99 mg tablet Take 1 tablet 0 Active by mouth daily. 550 mg daily omeprazole (PriLOSEC) Take 40 mg by 0 Active 40 MG capsule mouth 2 (two) times a day. magnesium chloride Take 2 tablets 0 Active (SLOW-MAG ORAL) by mouth daily. diazePAM (VALIUM) 5 MG Take 5 mg by 0 Active tablet mouth daily as needed for anxiety. LINZESS 145 mcg Take 145 mcg 0 Active capsule by mouth as 8 needed. ondansetron (ZOFRAN) 4 0 Active MG tablet 9 DULoxetine (CYMBALTA) Take 1 capsule 180 capsule 2 Active 60 MG capsule (60 mg total) 9 by mouth 2 (two) times a day. gabapentin (NEURONTIN) Take 3 tablets 90 tablet 4 Active 600 mg tablet (1,800 mg 9 total) by mouth nightly. traZODone (DESYREL) Take 1 tablet 90 tablet 1 Active 150 MG tablet (150 mg total) 9 by mouth nightly. amitriptyline (ELAVIL) 0 Active 25 MG tablet 9 methocarbamol Take 2 tablets 120 tablet 0 Active (ROBAXIN) 500 MG (1,000 mg 9 020 tablet total) by mouth 2 (two) times a day. PRN spasm acetaminophen-codeine Take 1 tablet 90 tablet 0 Active (TYLENOL WITH CODEINE by mouth every 9 019 #3) 300-30 mg per 8 (eight) tablet hours as needed for moderate pain for up to 30 days. butalbital-acetaminoph Take 1 tablet 30 tablet 0 Active en-caff (ESGIC) by mouth every 9 019 50-325-40 mg per 8 (eight) tablet hours as needed for headaches for up to 30 days. amitriptyline (ELAVIL) Take 25 mg by 0 Discontinued 25 MG tablet mouth nightly. 8 019 DULoxetine (CYMBALTA) Take 60 mg by 0 Discontinued 60 MG capsule mouth 2 (two) 8 019 times a day. gabapentin (NEURONTIN) Take 1,800 mg 0 Discontinued 600 mg tablet by mouth 8 019 nightly. indomethacin (INDOCIN) 0 Discontinued 25 MG capsule 8 018 topiramate (TOPAMAX) Take 50 mg by 0 Discontinued 50 MG tablet mouth 2 (two) 8 018 times a day. traMADol (ULTRAM) 50 Take 100 mg by 0 Discontinued mg tablet mouth 3 8 019 (three) times a day. traZODone (DESYREL) Take 150 mg by 0 Discontinued 150 MG tablet mouth nightly. 8 019 metaxalone (SKELAXIN) Take 1 tablet 60 tablet 0 800 MG tablet (800 mg total) 8 018 by mouth every 8 (eight) hours as needed for muscle spasms for up to 20 days. BLACK COHOSH ORAL Take 1 tablet 0 Discontinued by mouth 018 nightly. UNABLE TO FIND Take 1 tablet 0 Discontinued by mouth every 018 morning. RELIZEN black cohosh 40 mg Take by mouth. 0 Discontinued tablet 018 gabapentin enacarbil Take 1,800 mg 90 tablet 4 Discontinued (HORIZANT) 600 mg by mouth 8 018 tablet extended nightly. release cyclobenzaprine Take 10 mg by 0 Discontinued (FLEXERIL) 10 mg mouth 3 019 tablet (three) times a day. acetaminophen-codeine Take 1 tablet 40 tablet 0 Discontinued (TYLENOL WITH CODEINE by mouth every 8 019 #3) 300-30 mg per 4 (four) hours tablet as needed for moderate pain for up to 40 days. cefTRIAXone (ROCEPHIN) Infuse 2 g 0 2 g in 50 ML Mini-Bag into a venous 8 019 Plus catheter every 12 (twelve) hours for 14 days. meclizine (ANTIVERT) Take 1 tablet 90 tablet 0 12.5 mg tablet (12.5 mg 9 019 total) by mouth 3 (three) times a day as needed for dizziness for up to 30 days. traMADol (ULTRAM) 50 Take 2 tablets 180 tablet 4 Discontinued mg tablet (100 mg total) 9 019 by mouth 3 (three) times a day. methylPREDNISolone follow package 21 tablet 0 (MEDROL, ERIK,) 4 mg directions 9 019 tablet cyclobenzaprine Take 1 tablet 90 tablet 0 (FLEXERIL) 5 mg tablet (5 mg total) 9 019 by mouth 3 (three) times a day as needed for muscle spasms for up to 30 days. butalbital-acetaminoph Take 1 tablet 30 tablet 0 en-caff (ESGIC) by mouth every 9 019 50-325-40 mg per 8 (eight) tabletIndications: hours as Intractable headache, needed for unspecified chronicity headaches for pattern, unspecified up to 10 days. headache type methocarbamol Take 2 tablets 50 tablet 0 Discontinued (ROBAXIN) 500 MG (1,000 mg 9 019 tablet total) by mouth 4 (four) times a day for 10 days. PRN spasm ondansetron ODT Take 1 tablet 5 tablet 0 (ZOFRAN ODT) 4 MG (4 mg total) 9 019 disintegrating tablet by mouth every 8 (eight) hours as needed for nausea or vomiting for up to 5 days. butalbital-acetaminoph Take 1 tablet 0 Discontinued en-caff (FIORICET, by mouth every 019 ESGIC) 50-325-40 mg 4 (four) hours per tablet as needed for headaches. Active Problems Problem Noted Date CSF leak 05/22/2018 Meningitis 03/09/2018 Bilateral occipital neuralgia 01/25/2018 Carpal tunnel syndrome of left wrist 01/25/2018 Chronic midline low back pain without sciatica 01/25/2018 Cervical radiculopathy 11/02/2017 Cervical spondylosis with radiculopathy 10/02/2017 Post traumatic stress disorder (PTSD) 08/27/2015 Bipolar II disorder, most recent episode major depressive 08/26/2015 Encounters Date Type Specialty Care Team Description 09/05/2018 Telephone Neurology Hilda Bergman MA 08/31/2018 Office Visit Neurology Nam Duong, Bilateral occipital MD neuralgia (Primary Dx) 08/22/2018 Emergency Emergency Medicine Sid Roman Tension headache - MD James (Primary Dx) 08/23/2018 08/22/2018 Travel 08/21/2018 Telephone Neurology Darlene Cabrera MA 08/16/2018 Telephone Neurology Pacheco Intractable headache, MARK Stevens unspecified chronicity pattern, unspecified headache type (Primary Dx) 07/31/2018 Office Visit Neurology Nam Duong, Seizure (HCC) (Primary Dx) 07/30/2018 Telephone Neurology Hilda Bergman MA 07/12/2018 Office Visit Neurology Nam Duong, Closed head injury, initial encounter (Primary Dx); Benign paroxysmal positional vertigo, unspecified laterality 07/12/2018 Hospital Encounter Radiology Nam Duong, Fall, initial encounter; Dizziness 07/12/2018 Social Work 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, 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 07/05/2018 Telephone Neurology Chaparro Bergman, initial encounter (Primary Dx ); MARK Stevens Dizziness 07/02/2018 Telephone Neurology Hilda Bergman MA 05/22/2018 Office Visit Neurology Nam Duong, CSF leak (Primary Dx) 05/17/2018 Orders Only Neurology Pacheco, Memory loss; MARK Stevens CSF rhinorrhea 05/15/2018 Telephone Neurology Hilda Bergman MA 04/17/2018 Documentation Neurosurgery Colin Amador MD 04/16/2018 Hospital Encounter Radiology Nam Duong, Memory loss; CSF rhinorrhea 04/10/2018 Telephone Neurology Hilda Bergman MA 04/09/2018 Office Visit Neurology Nam Duong, Memory loss (Primary Dx); CSF rhinorrhea 04/04/2018 Office Visit Orthopedic Surgery Lalito Kiser S/P cervical spinal fusion (Primary Dx); MD Fei Chronic bilateral low back pain without sciatica 03/13/2018 Anesthesia Event General Surgery Tiara Chowdhury MD 03/13/2018 Surgery General Surgery Colin Amador MD POSTERIOR FOSSA , CRANIOTOMY, DURAL REPAIR WITH DURAL PATCH GRAFT AND [facility] 03/09/2018 Hospital Encounter General Internal Andrea, Meningitis ( Primary Dx); - Medicine Wojciech Morgan MD Postoperative CSF leak; 03/17/2018 Marjan, Cerebrospinal fluid rhinorrhea; Andrey Lomeli, Cervical radiculopathy 03/06/2018 Telephone Neurology Hilda Bergman MA 01/25/2018 Hospital Encounter Radiology Nam Duong, Chronic midline low MD back pain without sciatica 01/25/2018 Procedure visit Neurology Nam Duong, Bilateral occipital neuralgia (Primary Dx); Left hand pain; Carpal tunnel syndrome of left wrist; Chronic midline low back pain without sciatica 01/12/2018 Telephone Neurology Hilda Bergman MA 01/10/2018 Office Visit Neurology Nam Duong, Bilateral occipital neuralgia (Primary Dx); Left hand pain; Chronic midline low back pain without sciatica 01/10/2018 Transcribe Orders Jason Moraes, Chronic bilateral low back pain with bilateral sciatica (Primary Dx); Chronic idiopathic anal pain 12/15/2017 Office Visit Orthopedic Surgery Lalito Kiser/Fede cervical spinal MD Fei fusion (Primary Dx) 11/29/2017 Orders Only Orthopedic Surgery Lalito Kiser Laryngitis (Primary BAshu, MD Dx) 11/14/2017 Office Visit Orthopedic Surgery Devin Horvath/Fede cervical spinal DONIS Ramirez fusion (Primary Dx) 11/02/2017 Anesthesia Event General Surgery Tayla Pelayo NP 11/02/2017 Surgery General Surgery Lalito Kiser CERVICAL ANTERIOR MD Fei DECOMPRESSION C56; CERVICAL ANTERIOR FUSION WITH INSTRUMENTATION C56; CERVICAL MACHINE CORTICAL ALLOGRAFT, BONE BANK; CERVICAL MORSALIZED ALLOGRAFT WITH NEURO MONITORING 11/02/2017 Hospital Encounter General Internal Lalito Kiser Cervical spondylosis with radiculopathy (Primary Dx); - Medicine MD Fei Cervical radiculopathy 11/03/2017 Steve Davila MD 11/01/2017 Hospital Encounter Lalito Irwin Pre-op testing MD Fei 11/01/2017 Pre-Admit Testing Pre-Admission Lalito Kiser Pre-op testing Appointment Testing MD Fei (Primary Dx) 11/01/2017 Office Visit Orthopedic Lalito Headley Cervical spondylelpidio Enamorado MD with radiculopathy (Primary Dx) 10/11/2017 Transcribe Orders Orthopedic Lalito Headley Cervical quinn Enamorado MD with radiculopathy (Primary Dx) 10/09/2017 Orders Only Orthopedic Surgery Devin Horvath PA 10/02/2017 Office Visit Orthopedic Lalito Headley Cervical spondylosis MD Fei with radiculopathy (Primary Dx) 09/14/2017 Hospital Encounter Radiology Lalito Kiser Cervical quinn Enamorado MD with radiculopathy 09/14/2017 Hospital Encounter Lalito Irwin Cervical quinn Enamorado MD with radiculopathy 09/14/2017 Procedure visit Neurology Lalito Kiser Cervical spondylosis with radiculopathy (Primary Dx); MD Fei Left arm pain; Nam Duong, Left arm weakness MD after 09/09/2017 Family History Medical History Relation Name Comments [...] Relation Name Status Comments Brother Alive Father Maternal Grandfather Maternal Grandmother Mother Alive Paternal Grandfather Paternal Grandmother Sister Alive Social History Tobacco Use Types Packs/Day Years Used Date Former Smoker Cigarettes 0.25 Quit: 2009 Smokeless Tobacco: Never Used Alcohol Use Drinks/Week oz/Week Comments No Sex Assigned at Date Recorded Not on file Job Start Date Occupation Industry Not on file Not on file Not on file Travel History Travel Start Travel End No recent travel history available. Last Filed Vital Signs Vital Sign Reading Time Taken Blood Pressure 110/70 08/31/2018 10:56 AM CDT Pulse 83 08/31/2018 10:56 AM CDT Temperature 37.3 C (99.2 F) 08/22/2018 7:18 PM CDT Respiratory Rate 14 08/31/2018 10:56 AM CDT Oxygen Saturation 99% 08/23/2018 12:08 AM CDT Inhaled Oxygen Concentration - - Weight 68 kg (150 lb) 08/22/2018 9:46 PM CDT Height 144.8 cm (4' 9") 08/22/2018 9:46 PM CDT Body Mass Index 32.46 08/22/2018 9:46 PM CDT Plan of Treatment Health Maintenance Due Date Last Done Comments COLONOSCOPY SCREENING 2017 SHINGLES VACCINES (#1) 2017 INFLUENZA VACCINE 10/25/2018 BREAST CANCER SCREENING 07/21/2019 07/20/2017, 07/20/2017, 08/14/2015, Additional history exists Implants Implanted Type Area Brand Engineer Device Shelf Model / Identifier Expiration Serial / Date Lot Aviator Assy One Level Plate Size 12 - [id number] IMPLANT Anterior: GLO SPINE [id number] / Implanted: Qty: 1 on 11/02/2017 by Lalito Kiser MD DEVICES Spine / Cervical VENDOR LOT NA Implant Bone Avs Cerv 4deg 7mm - [id number] Spinal N/A: N/A GLO SPINE 01/25/2022 [id number] / Implanted: Qty: 1 on 11/02/2017 by Lalito Kiser MD Implants / Screw Spinal V-Ang Slf-Tap 4x12mm Aviatr - [id number] Spinal Anterior: GLO SPINE [id number] / Implanted: Qty: 4 on 11/02/2017 by Lalito Kiser MD Implants Spine / Cervical VENDOR LOT JUANITA Farnsworth Humn Hmsts Surgy 5ml Evicel - [id number] Surgical Posterior : ETHICON [id number] / Implanted: Qty: 2 on 03/13/2018 by Colin Amador MD Implants; Occipital / Expanders; Lobe Extenders; Surgical Wires Procedures Procedure Name Priority Date/Time Associated Comments Diagnosis CT HEAD WO CONTRAST STAT 08/22/2018 10:14 Results for this PM CDT procedure are in the results section. ECG ED PRELIMINARY Routine 08/22/2018 10:06 Results for this INTERPRETATION PM CDT procedure are in the results section. GENERAL Routine 08/22/2018 10:06 Results for this PM CDT procedure are in the results section. ECG 12-LEAD STAT 08/22/2018 8:33 Results for this PM CDT procedure are in the results section. CT HEAD WO CONTRAST Routine 07/12/2018 7:11 Fall, initial Results for this AM CDT encounter procedure are in Dizziness the results section. MRI BRAIN W WO CONTRAST Routine 04/16/2018 9:14 Memory loss Results for this AM FRONT END SOFTWARE ENGINEER CSF rhinorrhea procedure are in the results section. XR CERVICAL SPINE 2 OR Routine 04/04/2018 8:50 S/P cervical Results for this 3 VW AM [employer] END SOFTWARE ENGINEER spinal fusion procedure are in the results section. US GUIDED VASCULAR Routine 03/16/2018 10:32 Results for this ACCESS AM [employer] END SOFTWARE ENGINEER procedure are in the results section. IR PICC PLACEMENT Routine 03/16/2018 10:32 Results for this AM [employer] END SOFTWARE ENGINEER procedure are in the results section. ESTIMATED GFR Routine 03/16/2018 5:16 Results for this AM [employer] END SOFTWARE ENGINEER procedure are in the results section. CREATININE LEVEL Routine 03/16/2018 5:16 Results for this AM [employer] END SOFTWARE ENGINEER procedure are in the results section. CT HEAD WO CONTRAST Routine 03/14/2018 6:32 Results for this AM [employer] END SOFTWARE ENGINEER procedure are in the results section. VANCOMYCIN LEVEL, Timed 03/14/2018 5:00 Results for this TROUGH AM [employer] END SOFTWARE ENGINEER procedure are in the results section. XR CHEST 1 VW PORTABLE Routine 03/14/2018 3:44 Results for this AM [employer] END SOFTWARE ENGINEER procedure are in the results section. ESTIMATED GFR Routine 03/14/2018 3:20 Results for this AM [employer] END SOFTWARE ENGINEER procedure are in the results section. IONIZED CALCIUM Routine 03/14/2018 3:20 Results for this AM [employer] END SOFTWARE ENGINEER procedure are in the results section. HC COMPLETE BLD COUNT Routine 03/14/2018 3:20 Results for this W/AUTO DIFF AM [employer] END SOFTWARE ENGINEER procedure are in the results section. BASIC METABOLIC PANEL Routine 03/14/2018 3:20 Results for this AM [employer] END SOFTWARE ENGINEER procedure are in the results section. PHOSPHORUS LEVEL Routine 03/14/2018 3:20 Results for this AM [employer] END SOFTWARE ENGINEER procedure are in the results section. MAGNESIUM LEVEL Routine 03/14/2018 3:20 Results for this AM [employer] END SOFTWARE ENGINEER procedure are in the results section. ECG 12-LEAD STAT 03/13/2018 6:41 Results for this PM [employer] END SOFTWARE ENGINEER procedure are in the results section. IONIZED CALCIUM, STAT 03/13/2018 1:48 Results for this ARTERIAL PM [employer] END SOFTWARE ENGINEER procedure are in the results section. ARTERIAL BLOOD GAS STAT 03/13/2018 1:48 Results for this PM [employer] END SOFTWARE ENGINEER procedure are in the results section. ESTIMATED GFR STAT 03/13/2018 1:43 Results for this PM [employer] END SOFTWARE ENGINEER procedure are in the results section. PARTIAL THROMBOPLASTIN STAT 03/13/2018 1:43 Results for this TIME (PTT) PM [employer] END SOFTWARE ENGINEER procedure are in the results section. PROTHROMBIN TIME WITH STAT 03/13/2018 1:43 Results for this INR PM [employer] END SOFTWARE ENGINEER procedure are in the results section. PHOSPHORUS LEVEL STAT 03/13/2018 1:43 Results for this PM [employer] END SOFTWARE ENGINEER procedure are in the results section. MAGNESIUM LEVEL STAT 03/13/2018 1:43 Results for this PM FR[employer] END SOFTWARE ENGINEER procedure are in the results section. COMPREHENSIVE METABOLIC STAT 03/13/2018 1:43 Results for this PANEL PM [employer] END SOFTWARE ENGINEER procedure are in the results section. HC COMPLETE BLD COUNT STAT 03/13/2018 1:43 Results for this W/AUTO DIFF PM FR[employer] END SOFTWARE ENGINEER procedure are in the results section. XR CHEST 1 VW PORTABLE STAT 03/13/2018 1:42 Results for this PM [employer] END SOFTWARE ENGINEER procedure are in the results section. FUNGUS SMEAR Routine 03/13/2018 12:00 Results for this PM [employer] SOFTWARE ENGINEER procedure are in the results section. GRAM STAIN Routine 03/13/2018 12:00 Results for this PM [employer] SOFTWARE ENGINEER procedure are in the results section. AFB STAIN Routine 03/13/2018 12:00 Results for this PM [employer] END SOFTWARE ENGINEER procedure are in the results section. FUNGUS CULTURE Routine 03/13/2018 12:00 Results for this PM [employer] END SOFTWARE ENGINEER procedure are in the results section. ANAEROBIC CULTURE Routine 03/13/2018 12:00 Results for this PM [employer] SOFTWARE ENGINEER procedure are in the results section. AFB CULTURE Routine 03/13/2018 12:00 Results for this PM [employer] END SOFTWARE ENGINEER procedure are in the results section. AEROBIC CULTURE Routine 03/13/2018 12:00 Results for this PM [employer] END SOFTWARE ENGINEER procedure are in the results section. ARTERIAL LINE Routine 03/13/2018 11:51 AM FRONT END SOFTWARE ENGINEER Procedure Note - Tiara Chowdhury MD - 03/13/2018 11:51 AM FR[employer] END SOFTWARE ENGINEER Arterial line Performed by: Tiara Chowdhury MD Authorized by: Tiara Chowdhury MD Patient Location: OR Start Time: 03/13/2018 11:51 AM End Time: 03/13/2018 11:51 AM Staff: Performed by: Anesthesiologist Pre-procedure: patient identified, IV checked, site and side verified, risks and benefits discussed, procedure verified, surgical consent complete, patient position confirmed, monitors and equipment checked and pre-op evaluation complete MSBT: antiseptic used, all elements of maximal sterile barrier technique followed, hand hygiene performed, cap/gown used by other personnel and solutions labeled TIme Out Performed: 03/13/2018 11:51 AM Indications: Indications: hemodynamic monitoring Anesthesia: Anesthesia: General Procedure Details: Arterial Line placement: Placed post induction Line placement site: Radial Line placement side: Right Arterial line gauge: 20 G Number of attempts: 1 Ultrasound guidance used: Yes Post-procedure: Post-procedure: Sterile dressing applied Post procedure circulation, sensation, movement: Normal Patient tolerance: Patient tolerated the procedure well with no immediate complications ME AN ELECTIVE ENDOTRACHEAL AIRWAY Routine 03/13/2018 11:50 AM FRONT END SOFTWARE ENGINEER Procedure Note - Tiara Chowdhury MD - 03/13/2018 11:50 AM FRONT END SOFTWARE ENGINEER ANESTHESIA INTUBATION Date/Time: 03/13/2018 11:20 AM Performed by: Tiara Chowdhury MD Authorized by: Tiara Chowdhury MD Location: OR Urgency: Elective Preoxygenated with 100% O2: Yes C-spine Precautions Maintained Throughout: Yes Mask Ventilation: Easy mask Final Airway Type: Endotracheal airway Final Endotracheal Airway: ETT Cuffed: Yes Technique Used: Direct laryngoscopy Blade Type: Foster Laryngoscope Blade/Videolaryngoscope Blade Size: 3 ETT Size (mm): 7.0 Cuff at minimum occlusion pressure: Yes Measured from: Lips Placement Verified by: CO2 detection, direct visualization and equal breath sounds Laryngoscopic view: Grade IIb - view of arytenoids or posterior of glottis only Rapid Sequence Induction (RSI): No Modified RSI: No Number of Attempts at Approach: 1 Medications Administered Propofol (DIPRIVAN) BOLUS, 150 mg rocuronium (ZEMURON), 40 mg URINALYSIS SCREEN AND Timed 03/13/2018 11:19 Cerebrospinal fluid Results for this MICROSCOPY, WITH AM [employer] END SOFTWARE ENGINEER rhinorrhea procedure are in REFLEX TO CULTURE the results section. URINE CULTURE Timed 03/13/2018 11:19 Results for this AM [employer] SOFTWARE ENGINEER procedure are in the results section. ESTIMATED GFR Routine 03/13/2018 5:20 Results for this AM [employer] SOFTWARE ENGINEER procedure are in the results section. HCG QUALITATIVE, SERUM Routine 03/13/2018 5:20 Results for this SCREEN AM [employer] SOFTWARE ENGINEER procedure are in the results section. PROTHROMBIN TIME WITH Routine 03/13/2018 5:20 Results for this INR AM [employer] END SOFTWARE ENGINEER procedure are in the results section. MAGNESIUM LEVEL Routine 03/13/2018 5:20 Results for this AM [employer] END SOFTWARE ENGINEER procedure are in the results section. BASIC METABOLIC PANEL Routine 03/13/2018 5:20 Results for this AM [employer] SOFTWARE ENGINEER procedure are in the results section. CBC HEMOGRAM Routine 03/13/2018 5:20 Results for this AM [employer] SOFTWARE ENGINEER procedure are in the results section. ECG 12-LEAD Routine 03/12/2018 5:34 Results for this PM [employer] END SOFTWARE ENGINEER procedure are in the results section. ESTIMATED GFR Routine 03/12/2018 4:30 Results for this AM [employer] END SOFTWARE ENGINEER procedure are in the results section. HC COMPLETE BLD COUNT Routine 03/12/2018 4:30 Results for this W/AUTO DIFF AM [employer] SOFTWARE ENGINEER procedure are in the results section. BASIC METABOLIC PANEL Routine 03/12/2018 4:30 Results for this AM [employer] SOFTWARE ENGINEER procedure are in the results section. VANCOMYCIN LEVEL, Timed 03/12/2018 4:30 Results for this TROUGH AM [employer] SOFTWARE ENGINEER procedure are in the results section. TYPE AND SCREEN Routine 03/11/2018 10:45 Results for this AM [employer] END SOFTWARE ENGINEER procedure are in the results section. VANCOMYCIN LEVEL, Timed 03/10/2018 4:30 Results for this TROUGH PM [employer] END SOFTWARE ENGINEER procedure are in the results section. TROPONIN Routine 03/10/2018 8:30 Results for this AM [employer] END SOFTWARE ENGINEER procedure are in the results section. ESTIMATED GFR Routine 03/10/2018 4:10 Results for this AM [employer] END SOFTWARE ENGINEER procedure are in the results section. BASIC METABOLIC PANEL Routine 03/10/2018 4:10 Results for this AM [employer] SOFTWARE ENGINEER procedure are in the results section. HC COMPLETE BLD COUNT Routine 03/10/2018 4:10 Results for this W/AUTO DIFF AM [employer] END SOFTWARE ENGINEER procedure are in the results section. LACTIC ACID LEVEL, Timed 03/10/2018 1:30 Results for this SEPSIS - NOW AND AM FR[employer] END SOFTWARE ENGINEER procedure are in REPEAT 2X EVERY 3 the results HOURS section. LACTIC ACID LEVEL, Timed 03/09/2018 8:35 Results for this SEPSIS - NOW AND PM FR[employer] END SOFTWARE ENGINEER procedure are in REPEAT 2X EVERY 3 the results HOURS section. MRI CERVICAL SPINE W STAT 03/09/2018 8:01 Results for this WO CONTRAST PM [employer] END SOFTWARE ENGINEER procedure are in the results section. MRI BRAIN W WO STAT 03/09/2018 8:00 Results for this CONTRAST PM [employer] END SOFTWARE ENGINEER procedure are in the results section. IR LUMBAR PUNCTURE STAT 03/09/2018 5:32 Results for this PM [employer] SOFTWARE ENGINEER procedure are in the results section. HERPES SIMPLEX VIRUS Routine 03/09/2018 5:20 Results for this BY PCR PM [employer] SOFTWARE ENGINEER procedure are in the results section. GLUCOSE LEVEL, CSF Routine 03/09/2018 5:20 Results for this PM [employer] SOFTWARE ENGINEER procedure are in the results section. PROTEIN, CSF Routine 03/09/2018 5:20 Results for this PM [employer] SOFTWARE ENGINEER procedure are in the results section. CSF CELL COUNT WITH Routine 03/09/2018 5:20 Results for this DIFFERENTIAL PM [employer] SOFTWARE ENGINEER procedure are in the results section. CRYPTOCOCCAL ANTIGEN Routine 03/09/2018 5:20 Results for this SCREEN PM [employer] SOFTWARE ENGINEER procedure are in the results section. FUNGUS CULTURE Routine 03/09/2018 5:20 Results for this PM [employer] SOFTWARE ENGINEER procedure are in the results section. GRAM STAIN Routine 03/09/2018 5:20 Results for this PM [employer] SOFTWARE ENGINEER procedure are in the results section. CSF CULTURE Routine 03/09/2018 5:20 Results for this PM [employer] SOFTWARE ENGINEER procedure are in the results section. URINALYSIS SCREEN AND STAT 03/09/2018 4:10 Results for this MICROSCOPY, WITH PM [employer] END SOFTWARE ENGINEER procedure are in REFLEX TO CULTURE the results section. GRAM STAIN STAT 03/09/2018 4:10 Results for this PM [employer] END SOFTWARE ENGINEER procedure are in the results section. URINE CULTURE STAT 03/09/2018 4:10 Results for this PM FRONT END SOFTWARE ENGINEER procedure are in the results section. BLOOD CULTURE, AEROBIC Routine 03/09/2018 3:30 Results for this & ANAEROBIC PM [employer] END SOFTWARE ENGINEER procedure are in the results section. ME CRITICAL CARE, E/M Routine 03/09/2018 3:20 Results for this 30-74 MINUTES PM [employer] END SOFTWARE ENGINEER procedure are in the results section. ESTIMATED GFR STAT 03/09/2018 3:10 Results for this PM [employer] END SOFTWARE ENGINEER procedure are in the results section. PROTHROMBIN TIME WITH STAT 03/09/2018 3:10 Results for this INR PM [employer] END SOFTWARE ENGINEER procedure are in the results section. PHOSPHORUS LEVEL STAT 03/09/2018 3:10 Results for this PM [employer] END SOFTWARE ENGINEER procedure are in the results section. PARTIAL THROMBOPLASTIN STAT 03/09/2018 3:10 Results for this TIME (PTT) PM [employer] END SOFTWARE ENGINEER procedure are in the results section. MAGNESIUM LEVEL STAT 03/09/2018 3:10 Results for this PM [employer] END SOFTWARE ENGINEER procedure are in the results section. HEPATIC FUNCTION PANEL STAT 03/09/2018 3:10 Results for this PM [employer] END SOFTWARE ENGINEER procedure are in the results section. HC COMPLETE BLD COUNT STAT 03/09/2018 3:10 Results for this W/AUTO DIFF PM [employer] END SOFTWARE ENGINEER procedure are in the results section. BASIC METABOLIC PANEL STAT 03/09/2018 3:10 Results for this PM [employer] END SOFTWARE ENGINEER procedure are in the results section. LACTIC ACID LEVEL, STAT 03/09/2018 3:10 Results for this SEPSIS - NOW AND PM FR[employer] END SOFTWARE ENGINEER procedure are in REPEAT 2X EVERY 3 the results HOURS section. BLOOD CULTURE, AEROBIC Routine 03/09/2018 3:10 Results for this & ANAEROBIC PM [employer] END SOFTWARE ENGINEER procedure are in the results section. MRI LUMBAR SPINE WO Routine 01/25/2018 11:30 Chronic midline low Results for this CONTRAST AM CDT back pain without procedure are in sciatica the results section. XR CERVICAL SPINE 2 OR Routine 12/15/2017 9:41 S/P cervical spinal Results for this 3 VW AM CDT fusion procedure are in the results section. XR CERVICAL SPINE 2 OR Routine 11/14/2017 9:08 S/P cervical spinal Results for this 3 VW AM CDT fusion procedure are in the results section. ZZESTIMATED GFR Routine 11/03/2017 5:40 Results for this AM CDT procedure are in the results section. MAGNESIUM LEVEL Routine 11/03/2017 5:40 Results for this AM CDT procedure are in the results section. BASIC METABOLIC PANEL Routine 11/03/2017 5:40 Results for this AM CDT procedure are in the results section. HC COMPLETE BLD COUNT Routine 11/03/2017 5:40 Results for this W/AUTO DIFF AM CDT procedure are in the results section. POC GLUCOSE Routine 11/02/2017 9:49 Results for this AM CDT procedure are in the results section. OR FL > 1 HOUR Routine 11/02/2017 9:40 Results for this AM CDT procedure are in the results section. ME AN ELECTIVE Routine 11/02/2017 8:23 ENDOTRACHEAL AIRWAY AM CDT Procedure Note - Owen Marina Jr. OPTOMETRIST - 11/02/2017 8:23 AM CDT Airway Date/Time: 11/02/2017 7:48 AM Performed by: OWEN MARINA JR. Authorized by: TIARA CHOWDHURY Location: OR Urgency: Elective Difficult Airway: No Resident/OPTOMETRIST/AA: OWEN MARINA JR. Performed by: resident/OPTOMETRIST/AA Preoxygenated with 100% O2: Yes C-spine Precautions Maintained Throughout: Yes Mask Ventilation: Easy mask Final Airway Type: Endotracheal airway Final Endotracheal Airway: ETT Cuffed: Yes Technique Used: Direct laryngoscopy Devices/Methods Used in Placement: Intubating stylet Insertion Site: Oral Blade Type: Foster Laryngoscope Blade/Videolaryngoscope Blade Size: 2 ETT Size (mm): 7.0 (With DragonFLy attachment) Cuff at minimum occlusion pressure: Yes Measured from: Lips ETT to Lips (cm): 18 Placement Verified by: CO2 detection, direct visualization and equal breath sounds Laryngoscopic view: Grade I - full view of glottis Rapid Sequence Induction (RSI): No Modified RSI: No Number of Attempts at Approach: 1 Smooth IV induction; DL x1; ETT 7.0 with DragonFly attachment; Suctioned; Atraumatic; +ETCO2 POC PANEL 4 Routine 11/02/2017 7:07 Results for this AM CDT procedure are in the results section. POC GLUCOSE Routine 11/02/2017 6:55 Results for this AM CDT procedure are in the results section. XR CHEST 2 VW Routine 11/01/2017 10:56 Pre-op testing Results for this AM CDT procedure are in the results section. ZZESTIMATED GFR Routine 11/01/2017 10:20 Results for this AM CDT procedure are in the results section. TYPE AND SCREEN Routine 11/01/2017 10:20 Pre-op testing Results for this AM CDT procedure are in the results section. PROTHROMBIN TIME WITH Routine 11/01/2017 10:20 Pre-op testing Results for this INR AM CDT procedure are in the results section. PARTIAL THROMBOPLASTIN Routine 11/01/2017 10:20 Pre-op testing Results for this TIME (PTT) AM CDT procedure are in the results section. COMPREHENSIVE Routine 11/01/2017 10:20 Pre-op testing Results for this METABOLIC PANEL AM CDT procedure are in the results section. HC COMPLETE BLD COUNT Routine 11/01/2017 10:20 Pre-op testing Results for this W/AUTO DIFF AM CDT procedure are in the results section. ECG PRE/POST OP Routine 11/01/2017 9:16 Pre-op testing Results for this AM CDT procedure are in the results section. MRI CERVICAL SPINE W Routine 09/14/2017 4:36 Cervical spondylosis Results for this WO CONTRAST PM CDT with radiculopathy procedure are in the results section. ZZESTIMATED GFR STAT 09/14/2017 3:15 Results for this PM CDT procedure are in the results section. CREATININE, WHOLE STAT 09/14/2017 3:15 Results for this BLOOD PM CDT procedure are in the results section. CT CERVICAL SPINE WO Routine 09/14/2017 3:11 Cervical spondylosis Results for this CONTRAST PM CDT with radiculopathy procedure are in the results section. after 09/09/[address] Head Wo Contrast (08/22/2018 10:14 PM CDT)Only the most recent of3 resultswithin the time period is included. Specimen Narrative Performed At EXAM: CT HEAD WO CONTRAST [facility] CLINICAL HISTORY: hanumb feet TECHNIQUE: Noncontrast enhanced images of the brain were obtained from the skull base to the vertex. Both soft tissue and bone reconstruction algorithms were performed. CT scans are performed using radiation dose reduction techniques (iterative reconstruction and/or automated exposure control). Technical factors are evaluated and adjusted to ensure appropriate moderation of exposure. Automated dose management technology is applied to adjust radiation exposure while achieving a diagnostic quality image. COMPARISON:07/12/2018. FINDINGS: The anglin-white matter differentiation is preserved and without evidence of acute territorial infarction. There is no evidence for acute intracranial hemorrhage, mass, mass effect, hydrocephalus, or extra-axial fluid collection. Orbits are unremarkable.Paranasal sinuses are clear.Mastoid air cells are normally pneumatized. Noted is again made of a small suboccipital decompressive craniectomy. Osseous structures are otherwise intact. IMPRESSION: No CT evidence for acute intracranial abnormality. [id number] Procedure Note Hm Interface, Radiology Results Incoming - 08/22/2018 10:26 PM CDT EXAM: CT HEAD WO CONTRAST CLINICAL HISTORY: santiago numb feet TECHNIQUE: Noncontrast enhanced images of the brain were obtained from the skull base to the vertex. Both soft tissue and bone reconstruction algorithms were performed. CT scans are performed using radiation dose reduction techniques (iterative reconstruction and/or automated exposure control). Technical factors are evaluated and adjusted to ensure appropriate moderation of exposure. Automated dose management technology is applied to adjust radiation exposure while achieving a diagnostic quality image. COMPARISON: 07/12/2018. FINDINGS: The anglin-white matter differentiation is preserved and without evidence of acute territorial infarction. There is no evidence for acute intracranial hemorrhage, mass, mass effect, hydrocephalus, or extra-axial fluid collection. Orbits are unremarkable. Paranasal sinuses are clear. Mastoid air cells are normally pneumatized. Noted is again made of a small suboccipital decompressive craniectomy. Osseous structures are otherwise intact. IMPRESSION: No CT evidence for acute intracranial abnormality. [id number] Performing Organization Address City/State/Zipcode Phone Number [facility] [address] [place] [address] ECG ED Preliminary Interpretation - Not an Order (08/22/2018 10:06 PM CDT) Narrative Performed At Sid Roman MD 08/23/20181:09 AM ECG ED Preliminary Interpretation - Not an Order Performed by: Sid Roman MD Authorized by: Sid Roman MD ECG reviewed by ED Physician in the absence of a project inspector: yes Previous ECG: Previous ECG:Compared to current Comparison ECG info:03/13/18 Similarity:No change Interpretation: Interpretation: normal Rate: ECG rate:76 ECG rate assessment: normal Rhythm: Rhythm: sinus rhythm Ectopy: Ectopy: none QRS: QRS axis:Normal QRS intervals:Normal T waves: T waves: normal Comments: RN General (08/22/2018 10:06 PM CDT) Narrative Performed At Sid Roman MD 08/23/20181:09 AM General Performed by: Sid Roman MD Authorized by: Sid Roman MD Consent: Consent obtained:Verbal Consent given by:Patient Risks discussed:Infection and pain Indications: Indications:Pain Pre-procedure details: Procedure prep: Alcohol prep. Anesthesia (see MAR for exact dosages): Anesthesia method:Local infiltration Local anesthetic:Lidocaine 1% w/o epi Post-procedure details: Patient tolerance of procedure:Tolerated well, no immediate complications Comments: Approximately 2 cc of 1% lidocaine was injected to each of 2 maximally tender trigger points.Patient tolerated procedure well and had adequate pain relief ECG 12 lead (08/22/2018 8:33 PM CDT)Only the most recent of3 resultswithin the time period is included. Ventricular rate 76 [facility] Atrial rate 76 [facility] ME interval 146 [facility] QRSD interval 70 [facility] QT interval 378 [facility] QTC interval 425 [facility] P axis 1 44 [facility] QRS axis 1 88 [facility] T wave axis 65 [facility] EKG impression Normal sinus rhythm-In [facility] automated comparison with ECG of -FEB-2018 18:41,-No significant change was found- Specimen Narrative Performed At Performing Organization Address City/State/Zipcode Phone Number [facility] [address] [place] [address] MRI Brain W Wo Contrast (04/16/2018 9:14 AM FRONT END SOFTWARE ENGINEER)Only the most recent of2 resultswithin the time period is included. Specimen Narrative Performed At EXAMINATION: MRI BRAIN W WO CONTRAST [facility] COMPARISON: None CLINICAL HISTORY R41.3 Other amnesia, G96.0 Cerebrospinal fluid leak, csf leak new memory loss. TECHNIQUE: Multiplanar multisequence examination was performed with and without contrast FINDINGS: There is no definite diffusion restriction. The ventricular system and subarachnoid spaces are mildly dilated but consistent with upper limits of normal for the patient's age. There is a small midline suboccipital craniectomy for foramen magnum decompression. There is a residual extradural collection in the midline overlying the craniocervical junction measuring roughly 15 x 25 mm and transverse by craniocaudal diameters. There is no significant mass effect on the thecal sac or the brainstem structures. This may represent a small postoperative pseudomeningocele. There is no evidence of cortical or subcortical infarction. There is thickening and increased enhancement of the dura of the convexity, the falx, and tentorium probably related to underlying mild intracranial hypotension/hypovolemia. There is no extra-axial masses or subdural hematoma or midline shift. There is no gross pituitary enlargement or engorgement of the parasellar vascular structures. IMPRESSION: Midline occipital craniectomy for foramen magnum decompression with an overlying small residual postoperative pseudomeningocele measuring approximately 1.5 x 2.5 cm. No mass effect on the dura or the br ainstem structures. This is increased slightly in size since previous CT of March 14, 2018 Increased thickening and enhancement of the dura of the convexity, the falx, and tentorium suggestive of intracranial hypotension/hypovolemia. No subdural hematoma or mass effect or abnormal enhancing masses. [id number] Procedure Note [facility], Radiology Results Incoming - 04/16/2018 9:27 AM FRONT END SOFTWARE ENGINEER EXAMINATION: MRI BRAIN W WO CONTRAST COMPARISON: None CLINICAL HISTORY R41.3 Other amnesia, G96.0 Cerebrospinal fluid leak, csf leak new memory loss. TECHNIQUE: Multiplanar multisequence examination was performed with and without contrast FINDINGS: There is no definite diffusion restriction. The ventricular system and subarachnoid spaces are mildly dilated but consistent with upper limits of normal for the patient's age. There is a small midline suboccipital craniectomy for foramen magnum decompression. There is a residual extradural collection in the midline overlying the craniocervical junction measuring roughly 15 x 25 mm and transverse by craniocaudal diameters. There is no significant mass effect on the thecal sac or the brainstem structures. This may represent a small postoperative pseudomeningocele. There is no evidence of cortical or subcortical infarction. There is thickening and increased enhancement of the dura of the convexity, the falx, and tentorium probably related to underlying mild intracranial hypotension/hypovolemia. There is no extra-axial masses or subdural hematoma or midline shift. There is no gross pituitary enlargement or engorgement of the parasellar vascular structures. IMPRESSION: Midline occipital craniectomy for foramen magnum decompression with an overlying small residual postoperative pseudomeningocele measuring approximately 1.5 x 2.5 cm. No mass effect on the dura or the brainstem structures. This is increased slightly in size since previous CT of March 14, 2018 Increased thickening and enhancement of the dura of the convexity, the falx, and tentorium suggestive of intracranial hypotension/hypovolemia. No subdural hematoma or mass effect or abnormal enhancing masses. [id number] Performing Organization Address City/[facility] Phone Number [employer] [address] [place] [address] XR Cervical Spine 2 Or 3 Vw (04/04/2018 8:50 AM FRONT END SOFTWARE ENGINEER)Only the most recent of3 resultswithin the time period is included. Specimen Narrative Performed At AP and lateral views of the cervical spine are reviewed.These [facility] demonstrate satisfactory position of the instrumentation and bone graft. Bone graft appears to be well incorporated.Sagittal and coronal balance are satisfactory Performing Organization Address [facility] Phone Number [employer] [address] [place] [address] IR PICC Placement (03/16/2018 10:32 AM FRONT END SOFTWARE ENGINEER) Specimen Narrative Performed At PROCEDURE: [employer] [facility] Peripherally inserted central catheter (PICC) placement Performing Radiologist: Alan Winters MD Assistants: None Pre Procedure Diagnosis: Bacteriuria Post Procedure Diagnosis: Bacteriuria Indication: IV access for fluids/medication/blood draws Complications: No immediate post procedure complications. IMPRESSION: 1.Technically successful insertion of a left sided dual lumen power injectable PICC. 2.The left basilic and brachial veins are patent and compressible on preprocedure ultrasound. PLAN: The PICC is ready for immediate use. PROCEDURE SUMMARY: 1.Venous access with ultrasound guidance 2.PICC insertion under fluoroscopic guidance PROCEDURE DETAILS: Pre-procedure: Comparison studies: None Written and informed consent for the procedure was obtained from the patient. Prophylactic antibiotics: None Preparation: The upper extremity was prepared and draped using all elements of maximal sterile barrier technique including sterile gloves, sterile gown, catheter, mask, large sterile sheet, sterile ultrasound probe cover, hand hygiene and cutaneous antisepsis using chlorhexidine. Anesthesia/Sedation: Level of anesthesia: None (1% lidocaine only) Medications used: 1% lidocaine. Anesthesia administration: Pulse oximetry, heart rate, and blood pressure were continuously monitored by a radiology nurse and the performing provider. Duration of intraservice [id number]-[id number]/sedation: N/A Access: Local anesthesia was administered. The left basilic vein was evaluated with preprocedure ultrasound and noted to be patent. Real-time ultrasound was used to visualize needle entry into the vessel and a permanent image was stored. Vein accessed: Left basilic vein Access technique: 5 Kenyan micropuncture set Venography: Vein accessed: N/A Indication for venography: Not performed Findings: N/A PICC placement: A 0.018 inch measuring wire was used to measure the intravascular distance. The catheter was trimmed to the appropriate length and placed into the vein under fluoroscopic guidance via a peel-away sheath. The catheter tip location was fluoroscopically verified and an image was archived. PICC placed: Bard Catheter size: 5 Kenyan Catheter length: 41 cm Catheter tip position: Atriocaval junction Closure: The catheter was secured to the subcutaneous tissues and a sterile bandage was applied. Catheter securement technique: 2-0 silk Contrast: Contrast agent: None Contrast volume: N/A Radiation dose: Fluoroscopy time: 0.02 minutes Image hold: 1 Fluoroscopic images: 0 Kerma area product: <1 mGy Additional details: Additional description of procedure: N/A Additional findings: N/A Equipment details: N/A Estimated blood loss: Less than 10 cc [id number] Procedure Note Interface, Radiology Results Incoming - 03/16/2018 4:31 PM FRONT END SOFTWARE ENGINEER PROCEDURE: Peripherally inserted central catheter (PICC) placement Performing Radiologist: Alan Winters MD Assistants: None Pre Procedure Diagnosis: Bacteriuria Post Procedure Diagnosis: Bacteriuria Indication: IV access for fluids/medication/blood draws Complications: No immediate post procedure complications. IMPRESSION: 1. Technically successful insertion of a left sided dual lumen power injectable PICC. 2. The left basilic and brachial veins are patent and compressible on preprocedure ultrasound. PLAN: The PICC is ready for immediate use. PROCEDURE SUMMARY: 1. Venous access with ultrasound guidance 2. PICC insertion under fluoroscopic guidance PROCEDURE DETAILS: Pre-procedure: Comparison studies: None Written and informed consent for the procedure was obtained from the patient. Prophylactic antibiotics: None Preparation: The upper extremity was prepared and draped using all elements of maximal sterile barrier technique including sterile gloves, sterile gown, catheter, mask, large sterile sheet, sterile ultrasound probe cover, hand hygiene and cutaneous antisepsis using chlorhexidine. Anesthesia/Sedation: Level of anesthesia: None (1% lidocaine only) Medications used: 1% lidocaine. Anesthesia administration: Pulse oximetry, heart rate, and blood pressure were continuously monitored by a radiology nurse and the performing provider. Duration of intraservice [id number] anesthesia/sedation: N/A Access: Local anesthesia was administered. The left basilic vein was evaluated with preprocedure ultrasound and noted to be patent. Real-time ultrasound was used to visualize needle entry into the vessel and a permanent image was stored. Vein accessed: Left basilic vein Access technique: 5 Kenyan micropuncture set Venography: Vein accessed: N/A Indication for venography: Not performed Findings: N/A PICC placement: A 0.018 inch measuring wire was used to measure the intravascular distance. The catheter was trimmed to the appropriate length and placed into the vein under fluoroscopic guidance via a peel-away sheath. The catheter tip location was fluoroscopically verified and an image was archived. PICC placed: Bard Catheter size: 5 Kenyan Catheter length: 41 cm Catheter tip position: Atriocaval junction Closure: The catheter was secured to the subcutaneous tissues and a sterile bandage was applied. Catheter securement technique: 2-0 silk Contrast: Contrast agent: None Contrast volume: N/A Radiation dose: Fluoroscopy time: 0.02 minutes Image hold: 1 Fluoroscopic images: 0 Kerma area product: <1 mGy Additional details: Additional description of procedure: N/A Additional findings: N/A Equipment details: N/A Estimated blood loss: Less than 10 cc [id number] Performing Organization Address City/State/[facility] Phone Number [employer] [address] [place] [address] [place] Guided Vascular Access (03/16/2018 10:32 AM FRONT END SOFTWARE ENGINEER) Specimen Narrative Performed At PROCEDURE: [employer] [facility] Peripherally inserted central catheter (PICC) placement Performing Radiologist: Alan Winters MD Assistants: None Pre Procedure Diagnosis: Bacteriuria Post Procedure Diagnosis: Bacteriuria Indication: IV access for fluids/medication/blood draws Complications: No immediate post procedure complications. IMPRESSION: 1.Technically successful insertion of a left sided dual lumen power injectable PICC. 2.The left basilic and brachial veins are patent and compressible on preprocedure ultrasound. PLAN: The PICC is ready for immediate use. PROCEDURE SUMMARY: 1.Venous access with ultrasound guidance 2.PICC insertion under fluoroscopic guidance PROCEDURE DETAILS: Pre-procedure: Comparison studies: None Written and informed consent for the procedure was obtained from the patient. Prophylactic antibiotics: None Preparation: The left upper extremity was prepared and draped using all elements of maximal sterile barrier technique including sterile gloves, sterile gown, catheter, mask, large sterile sheet, sterile ultrasound probe cover, hand hygiene and cutaneous antisepsis using chlorhexidine. Anesthesia/Sedation: Level of anesthesia: None (1% lidocaine only) Medications used: 1% lidocaine. Anesthesia administration: Pulse oximetry, heart rate, and blood pressure were continuously monitored by a radiology nurse and the performing provider. Duration of intraservice fotq-[id number]-viifsjhfoctebu/sedation: N/A Access: Local anesthesia was administered. The left basilic vein was evaluated with preprocedure ultrasound and noted to be patent. Real-time ultrasound was used to visualize needle entry into the vessel and a permanent image was stored. Vein accessed: Left basilic vein Access technique: 5 Kenyan micropuncture set Venography: Vein accessed: N/A Indication for venography: Not performed Findings: N/A PICC placement: A 0.018 inch measuring wire was used to measure the intravascular distance. The catheter was trimmed to the appropriate length and placed into the vein under fluoroscopic guidance via a peel-away sheath. The catheter tip location was fluoroscopically verified and an image was archived. PICC placed: Bard Catheter size: 5 Kenyan Catheter length: 41 cm Catheter tip position: Atriocaval junction Closure: The catheter was secured to the subcutaneous tissues and a sterile bandage was applied. Catheter securement technique: 2-0 silk Contrast: Contrast agent: None Contrast volume: N/A Radiation dose: Fluoroscopy time: 0.02 minutes Image hold: 1 Fluoroscopic images: 0 Kerma area product: <1 mGy Additional details: Additional description of procedure: N/A Additional findings: N/A Equipment details: N/A Estimated blood loss: Less than 10 cc [id number] Procedure Note [facility], Radiology Results Incoming - 03/16/2018 4:32 PM FRONT END SOFTWARE ENGINEER PROCEDURE: Peripherally inserted central catheter (PICC) placement Performing Radiologist: Alan Winters MD Assistants: None Pre Procedure Diagnosis: Bacteriuria Post Procedure Diagnosis: Bacteriuria Indication: IV access for fluids/medication/blood draws Complications: No immediate post procedure complications. IMPRESSION: 1. Technically successful insertion of a left sided dual lumen power injectable PICC. 2. The left basilic and brachial veins are patent and compressible on preprocedure ultrasound. PLAN: The PICC is ready for immediate use. PROCEDURE SUMMARY: 1. Venous access with ultrasound guidance 2. PICC insertion under fluoroscopic guidance PROCEDURE DETAILS: Pre-procedure: Comparison studies: None Written and informed consent for the procedure was obtained from the patient. Prophylactic antibiotics: None Preparation: The left upper extremity was prepared and draped using all elements of maximal sterile barrier technique including sterile gloves, sterile gown, catheter, mask, large sterile sheet, sterile ultrasound probe cover, hand hygiene and cutaneous antisepsis using chlorhexidine. Anesthesia/Sedation: Level of anesthesia: None (1% lidocaine only) Medications used: 1% lidocaine. Anesthesia administration: Pulse oximetry, heart rate, and blood pressure were continuously monitored by a radiology nurse and the performing provider. Duration of intraservice [id number] anesthesia/sedation: N/A Access: Local anesthesia was administered. The left basilic vein was evaluated with preprocedure ultrasound and noted to be patent. Real-time ultrasound was used to visualize needle entry into the vessel and a permanent image was stored. Vein accessed: Left basilic vein Access technique: 5 Kenyan micropuncture set Venography: Vein accessed: N/A Indication for venography: Not performed Findings: N/A PICC placement: A 0.018 inch measuring wire was used to measure the intravascular distance. The catheter was trimmed to the appropriate length and placed into the vein under fluoroscopic guidance via a peel-away sheath. The catheter tip location was fluoroscopically verified and an image was archived. PICC placed: Bard Catheter size: 5 Kenyan Catheter length: 41 cm Catheter tip position: Atriocaval junction Closure: The catheter was secured to the subcutaneous tissues and a sterile bandage was applied. Catheter securement technique: 2-0 silk Contrast: Contrast agent: None Contrast volume: N/A Radiation dose: Fluoroscopy time: 0.02 minutes Image hold: 1 Fluoroscopic images: 0 Kerma area product: <1 mGy Additional details: Additional description of procedure: N/A Additional findings: N/A Equipment details: N/A Estimated blood loss: Less than 10 cc [facility]-[id number] Performing Organization Address City/[facility]/Zipcode Phone Number [facility] [address] [place] [address] Estimated GFR (03/16/2018 5:16 AM FRONT END SOFTWARE ENGINEER)Only the most recent of7 resultswithin the time period is included. [facility] Estimated GFR >=90 mL/min/1.73 [facility] Comment: m2 [facility] CatergoryUnitsInterpretation [facility] G1 >=90 Normal or high G2 60-89Mildly decreased [id number] to moderately decreased G1l48-89Zqjkxghdts to severely decreased G4 15-29Severely decreased G5 <15Kidney failure The eGFR was calculated using the Chronic Kidney Disease Epidemiology Collaboration (CKD-EPI) equation. Interpretation is based on recommendations of the National Kidney Foundation-Kidney Disease Outcomes Quality Initiative (NKF-KDOQI) published in 2014. Specimen Plasma specimen Performing Organization Address City/[facility]/Zipcode Phone Number [facility] DEPARTMENT OF PATHOLOGY [address] [place] [address] AND [facility]OMIC [facility]IC[facility] [address] [place] [address] HOSPITAL Creatinine level (03/16/2018 5:16 AM FRONT END SOFTWARE ENGINEER) Creatinine 0.69 0.50 - 0.90 mg/dL [facility] Specimen Plasma specimen Performing Organization Address City/[facility]/Zipcode Phone Number [facility] DEPARTMENT OF PATHOLOGY [address] [place] [address] [place] [address] HOSPITAL Vancomycin level, trough (03/14/2018 5:00 AM FRONT END SOFTWARE ENGINEER)Only the most recent of3 resultswithin the time period is included. Pathologist [facility] Vancomycin, 15.2 10.0 - 20.0 [facility] trough Comment: ug/mL [facility] Therapeutic Ranges: HOSPITAL Peak30.0 - 40.0 ug/mL Rrkbhf51.0 - 20.0 ug/mL Specimen Blood Performing Organization Address City/[facility] Phone Number [facility] DEPARTMENT OF PATHOLOGY [address] [place] [address] XR Chest 1 Vw Portable (03/14/2018 3:44 AM FRONT END SOFTWARE ENGINEER)Only the most recent of2 resultswithin the time period is included. Specimen Narrative Performed At EXAMINATION:XR CHEST 1 VW PORTABLE [facility] CLINICAL HISTORY:ICU ptstable with no clinical status changes IMPRESSION: Follow-up exam demonstrates no interval change, and no new infiltrate. [facility]-[id number] Procedure Note Hm Interface, Radiology Results Incoming - 03/14/2018 7:01 AM FRONT END SOFTWARE ENGINEER EXAMINATION: XR CHEST 1 VW PORTABLE CLINICAL HISTORY: ICU pt stable with no clinical status changes IMPRESSION: Follow-up exam demonstrates no interval change, and no new infiltrate. [facility]-[id number] Performing Organization Address City/[facility]/Zipcode Phone Number [facility] [address] [place] [address] CBC with platelet and differential (03/14/2018 3:20 AM FRONT END SOFTWARE ENGINEER)Only the most recent of7 resultswithin the time period is included. Pathologist [facility] WBC 8.0 4.5 - 11.0 k/uL [facility] RBC 3.62 (L) 4.20 - 5.50 [facility] m/uL [facility] HGB 10.4 (L) 12.0 - 16.0 [facility] g/dL [facility] HCT 32.9 (L) 37.0 - 47.0 % [facility] MCV 90.9 82.0 - 100.0 fL [facility] MCH 28.7 27.0 - 34.0 pg [facility] MCHC 31.6 31.0 - 37.0 [facility] g/dL [facility] RDW - SD 44.9 37.0 - 55.0 fL [facility] MPV 9.4 6.9 - 11.0 fL [facility] Platelet count 299 150 - 400 K/uL [facility] Nucleated RBC 0.30 /100 WBC [facility] Neutrophils 51.3 39.0 - 69.0 % [facility] Lymphocytes 36.1 25.0 - 45.0 % [facility] Monocytes 7.1 0.0 - 10.0 % [facility] Eosinophils 4.8 0.0 - 5.0 % [facility] Basophils 0.3 0.0 - 1.0 % [facility] Immature granulocytes 0.4 0.0 - 1.0 % [facility] Specimen Blood Performing Organization Address City/[facility] Phone Number [facility] DEPARTMENT OF PATHOLOGY [address] [place] [address] [place] [address] HOSPITAL Phosphorus level (03/14/2018 3:20 AM FRONT END SOFTWARE ENGINEER)Only the most recent of3 resultswithin the time period is included. Phosphorus 4.6 (H) 2.4 - 4.5 mg/dL [facility] Specimen Plasma specimen Performing Organization Address City/[facility] Phone Number [facility] DEPARTMENT OF PATHOLOGY [address] [place] [address] Magnesium level (03/14/2018 3:20 AM FRONT END SOFTWARE ENGINEER)Only the most recent of5 resultswithin the time period is included. Magnesium 1.9 1.6 - 2.6 mg/dL [facility] Specimen Plasma specimen Performing Organization Address City/[facility] Phone Number [facility] DEPARTMENT OF PATHOLOGY [address] [place] [address] [place] [address] HOSPITAL Ionized calcium (03/14/2018 3:20 AM FRONT END SOFTWARE ENGINEER) pH 7.45 [facility] Ionized calcium 1.05 (L) 1.11 - 1.32 [facility] mmol/L [facility] Specimen Plasma specimen Performing Organization Address City/[facility] Phone Number [facility] DEPARTMENT OF PATHOLOGY [address] [place] [address] Basic metabolic panel (03/14/2018 3:20 AM FRONT END SOFTWARE ENGINEER)Only the most recent of6 resultswithin the time period is included. Sodium 142 135 - 148 mEq/L [facility] Potassium 4.1 3.5 - 5.0 mEq/L [facility] Chloride 107 98 - 112 mEq/L [facility] CO2 25 24 - 31 mEq/L [facility] Anion gap 10@ANIO 7 - 15 mEq/L [facility] BUN 5 (L) 6 - 20 mg/dL [facility] Creatinine 0.67 0.50 - 0.90 mg/dL [facility] Glucose 100 (H) 65 - 99 mg/dL [facility] Calcium 8.6 8.3 - 10.2 mg/dL [facility] Specimen Plasma specimen Performing Organization Address City/[facility] Phone Number [facility] DEPARTMENT OF PATHOLOGY [address] [place] [address] Ionized calcium, arterial (03/13/2018 1:48 PM FRONT END SOFTWARE ENGINEER) Ionized calcium, 1.03 (L) 1.11 - 1.32 [facility] arterial mmol/L [facility] Specimen Blood Performing Organization Address City/State/Zipcode Phone Number [facility] DEPARTMENT OF PATHOLOGY [address] [place] [address] AND [place] [id number] HOSPITAL Arterial blood gas (03/13/2018 1:48 PM FRONT END SOFTWARE ENGINEER) pH, arterial 7.38 7.35 - 7.45 [facility] pCO2, arterial 46 (H) 35 - 45 mmHg [facility] pO2, arterial 221 (H) 80 - 90 mmHg [facility] Bicarbonate, 26.5 21.0 - 28.0 [facility] arterial mmol/L [facility] Base excess, 2 -2 - 2 mEq/L [facility] O2 saturation, 99 95 - 100 % [facility] Specimen Blood Performing Organization Address City/State/Zipcode Phone Number [facility] DEPARTMENT OF PATHOLOGY [address] [place] [address] Partial thromboplastin time, activated (03/13/2018 1:43 PM FRONT END SOFTWARE ENGINEER)Only the most recent of3 resultswithin the time period is included. PTT 27.9 23.0 - 36.0 [facility] Comment: [facility] PTT therapeutic range for unfractionated heparin is HOSPITAL 61.0-112.0 seconds which corresponds to Anti-Xa 0.3-0.7 U/ml. Specimen Blood Performing Organization Address City/[facility] Phone Number [facility] DEPARTMENT OF PATHOLOGY [address] [place] [address] Prothrombin time with INR (03/13/2018 1:43 PM FRONT END SOFTWARE ENGINEER)Only the most recent of4 resultswithin the time period is included. Prothrombin time 13.1 11.5 - 14.5 [facility] INR 1.0 [facility] Comment: BARTOLO JAMES [facility] International Normalized Ratio (INR) is a therapeutic [facility] monitoring tool for patients who are stable on oral anticoagulant therapy. An INR of 2.0-3.0 is suggested for deep vein thrombosis/pulmonary embolism. Specimen Blood Performing Organization Address City/[facility]/Zipcode Phone Number [facility] DEPARTMENT OF PATHOLOGY [address] [place] [address] AND GENOMIC MEDICINE [place] [address] Comprehensive metabolic panel (03/13/2018 1:43 PM FRONT END SOFTWARE ENGINEER)Only the most recent of2 resultswithin the time period is included. Sodium 141 135 - 148 mEq/L [facility] Potassium 4.1 3.5 - 5.0 mEq/L [facility] Chloride 104 98 - 112 mEq/L [facility] CO2 26 24 - 31 mEq/L [facility] Anion gap 11@ANIO 7 - 15 mEq/L [facility] BUN 8 6 - 20 mg/dL [facility] Creatinine 0.62 0.50 - 0.90 [facility] mg/dL [facility] Glucose 106 (H) 65 - 99 mg/dL [facility] Calcium 8.9 8.3 - 10.2 mg/dL [facility] Protein 6.5 6.3 - 8.3 g/dL [facility] Albumin 3.7 3.5 - 5.0 g/dL [facility] A/G ratio 1.3 0.7 - 3.8 [facility] Alkaline phosphatase 53 35 - 104 U/L [facility] AST 21 10 - 35 U/L [facility] ALT 16 5 - 50 U/L [facility] Total bilirubin <0.2 0.2 - 1.2 mg/dL [facility] Specimen Plasma specimen Performing Organization Address City/State/Zipcode Phone Number [facility] DEPARTMENT OF PATHOLOGY [id number] [place] [address] [place] [address] HOSPITAL Fungus smear (03/13/2018 12:00 PM FRONT END SOFTWARE ENGINEER) Fungus smear No fungi observed. [facility] Comment: HOSPITAL Specimen Information Specimen Source: Incision Specimen Site: Cerebral Spinal Fluid site Specimen Incision Performing Organization Address City/State/Zipcode Phone Number [facility] DEPARTMENT OF PATHOLOGY AND [address] [place] [address] [address] AFB culture (03/13/2018 12:00 PM FRONT END SOFTWARE ENGINEER) AFB culture No growth after 6 weeks of incubation. [facility] isolate Comment: HOSPITAL Specimen Information Specimen Source: Incision Specimen Site: Cerebral Spinal Fluid site Specimen Incision - Cerebral Spinal Fluid Performing Organization Address City/[facility] Phone Number [facility] DEPARTMENT OF PATHOLOGY AND [address] [place] [address] [address] Aerobic culture (03/13/2018 12:00 PM FRONT END SOFTWARE ENGINEER) Aerobic culture No growth after 3 days. [facility] isolate Comment: HOSPITAL Specimen Information Specimen Source: Incision Specimen Site: Cerebral Spinal Fluid site Specimen Incision - Cerebral Spinal Fluid Performing Organization Address City/[facility] Phone Number [facility] DEPARTMENT OF PATHOLOGY AND [address] [place] [id number] [place] [address] Gram stain (03/13/2018 12:00 PM FRONT END SOFTWARE ENGINEER)Only the most recent of3 resultswithin the time period is included. Gram stain isolate Occasional WBC's [facility] Rare Gram negative rods [facility] Comment: Specimen Information Specimen Source: Incision Specimen Site: Cerebral Spinal Fluid site Specimen Incision Performing Organization Address [facility] Phone Number [facility] DEPARTMENT OF PATHOLOGY AND [address] [place] [id number] [place] [address] AFB stain (03/13/2018 12:00 PM FRONT END SOFTWARE ENGINEER) AFB stain No acid fast bacilli (AFB) seen. [facility] Comment: HOSPITAL Specimen Information Specimen Source: Incision Specimen Site: Cerebral Spinal Fluid site Specimen Incision Performing Organization Address [facility] Phone Number [facility] DEPARTMENT OF PATHOLOGY AND [address] [place] [address] [address] Fungus culture (03/13/2018 12:00 PM FRONT END SOFTWARE ENGINEER)Only the most recent of2 resultswithin the time period is included. Fungus culture No growth after 4 weeks of incubation. [facility] isolate Comment: HOSPITAL Specimen Information Specimen Source: Incision Specimen Site: Cerebral Spinal Fluid site Specimen Incision - Cerebral Spinal Fluid Performing Organization Address City/[facility]/Zipcode Phone Number [facility] DEPARTMENT OF PATHOLOGY AND [address] [place] [address] [facility] [address] [place] [address] Anaerobic culture (03/13/2018 12:00 PM FRONT END SOFTWARE ENGINEER) Anaerobic culture No anaerobic organisms isolated. [facility] isolate Comment: HOSPITAL Specimen Information Specimen Source: Incision Specimen Site: Cerebral Spinal Fluid site Specimen Incision - Cerebral Spinal Fluid Performing Organization Address [facility] Phone Number [facility] DEPARTMENT OF PATHOLOGY AND [address] [place] [phone] [address] Urinalysis screen and microscopy, with reflex to culture (03/13/2018 11:19 AM FRONT END SOFTWARE ENGINEER)Only the most recent of2 resultswithin the time period is included. Specimen site Catheterized [facility] Color, UA Yellow [facility] Appearance, UA Clear [facility] Specific gravity, UA 1.010 1.001 - 1.030 [facility] pH, UA 7.0 5.0 - 9.0 [facility] Protein, UA Negative Negative [facility] Glucose, UA Negative Negative [facility] Ketones, UA Negative Negative [facility] Bilirubin, UA Negative Negative [facility] Blood, UA Negative Negative [facility] Nitrite, UA Negative Negative [facility] Urobilinogen, UA <2.0 <2.0 E.U./dL [facility] Leukocyte esterase, Negative Negative [facility] Epithelial cells, UA 1 /HPF [facility] WBC, UA 1 0 - 4 /HPF [facility] RBC, UA 2 0 - 5 /HPF [facility] Bacteria, UA None seen None seen [facility] Yeast, UA None seen [facility] Yeast with None seen [facility] pseudohyphae, UA [facility] Specimen Urine - Urine, catheter Performing Organization Address [facility]/Zipcode Phone Number [facility] DEPARTMENT OF PATHOLOGY [address] [place] [address] AND [facility] [address] [place] [address] HOSPITAL Urine culture (03/13/2018 11:19 AM FRONT END SOFTWARE ENGINEER)Only the most recent of2 resultswithin the time period is included. Urine culture SEE COMMENTComment: [facility] Bacteriuria screen [facility] negative. Specimen Performing Organization Address City/State/Zipcode Phone Number [facility] DEPARTMENT OF PATHOLOGY [address] [place] [address] CBC hemogram (03/13/2018 5:20 AM FRONT END SOFTWARE ENGINEER) WBC 6.3 4.5 - 11.0 k/uL [facility] RBC 4.14 (L) 4.20 - 5.50 m/uL [facility] HGB 12.0 12.0 - 16.0 g/dL [facility] HCT 38.0 37.0 - 47.0 % [facility] MCV 91.8 82.0 - 100.0 fL [facility] MCH 29.0 27.0 - 34.0 pg [facility] MCHC 31.6 31.0 - 37.0 g/dL [facility] RDW - SD 44.9 37.0 - 55.0 fL [facility] MPV 9.5 6.9 - 11.0 fL [facility] Platelet count 305 150 - 400 K/uL [facility] Nucleated RBC 0.00 /100 WBC [facility] Specimen Blood Performing Organization Address City/[facility]/Zipcode Phone Number [facility] DEPARTMENT OF PATHOLOGY [address] [place] [address] hCG qualitative, serum screen (03/13/2018 5:20 AM FRONT END SOFTWARE ENGINEER) hCG qualitative, NegativeComment: [facility] serum Sensitivity of HCG [facility] test: 25 mIU/mL HOSPITAL Specimen Blood Performing Organization Address City/State/Zipcode Phone Number [facility] DEPARTMENT OF PATHOLOGY [address] [place] [address] [place] [address] HOSPITAL Type and screen (03/11/2018 10:45 AM FRONT END SOFTWARE ENGINEER)Only the most recent of2 resultswithin the time period is included. ABO grouping B [facility] Rh type POS [facility] Antibody screen (gel) NEG [facility] Specimen Blood Performing Organization Address City/[facility] Phone Number [facility] DEPARTMENT OF PATHOLOGY [address] [place] [address] Troponin (03/10/2018 8:30 AM FRONT END SOFTWARE ENGINEER) Troponin <0.30 0.00 - 0.30 [facility] Comment: ng/mL [facility] 0.11 - 1.49 ng/mlMay indicate increased risk of acute coronary syndrome. >=1.5 ng/mlConsistent with acute myocardial infarction. The diagnostic value of a single normal or non-diagnostic result is questionable.Serial samples at 2-6 hour intervals are required to rule out acute myocardial injury. Specimen Plasma specimen Performing Organization Address City/[facility] Phone Number [facility] DEPARTMENT OF PATHOLOGY [address] [place] [address] Lactic acid level, SEPSIS - Now and repeat 2x every 3 hours (03/10/2018 1:30 AM FRONT END SOFTWARE ENGINEER)Only the most recent of3 resultswithin the time period is included. Lactic acid 1.0 0.5 - 2.2 mmol/L [facility] Specimen Plasma specimen Performing Organization Address City/[facility] Phone Number [facility] DEPARTMENT OF PATHOLOGY [address] [place] [address] MRI Cervical Spine W Wo Contrast (03/09/2018 8:01 PM FRONT END SOFTWARE ENGINEER)Only the most recent of2 resultswithin the time period is included. Specimen Narrative Performed At EXAMINATION: MRI CERVICAL SPINE W WO CONTRAST [facility] CLINICAL HISTORY: neck pains p decompression w CSF leakfever COMPARISON:MRI C-spine 09/14/2017. TECHNIQUE: Multiplanar multisequence MRI examination was performed of the cervical spine with and without IV contrast. FINDINGS: Interval development of a large CSF attenuating lobulated nonenhancing suboccipital scalp collection spanning an area of approximately 13 x 3 x 8 cm (TR by AP by CC). 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 Foramen magnum is patent. Susceptibility artifact related to prior intervertebral discectomy and anterior spinal instrumentation is noted C5-C6. The alignment of the cervical spine is within normal limits. No subluxation.No fracture. No subluxation. No suspicious osseous lesion. No degenerative marrow changes. The cervicomedullary junction is normal in appearance. No spinal cord signal abnormality. No syrinx identified. No pathologic enhancement identified suggest active demyelination. No prevertebral edema or neck mass identified. No cervical lymphadenopathy. Major vascular flow voids are present. Axial images through the disc spaces demonstrate the following: C1-C2: No significant spinal canal stenosis. C2-C3: No significant posterior disc disease, spinal canal, subarticular zone, or neural foraminal stenosis. C3-C4: No significant posterior disc disease, spinal canal, subarticular zone, or neural foraminal stenosis. C4-C5: No significant posterior disc disease, spinal canal, subarticular zone, or neural foraminal stenosis. C5-C6: Disc is surgically absent. No significant spinal canal, subarticular zone, or neural foraminal stenosis identified within the limitations of susceptibility artifact. C6-C7: No significant posterior disc disease, spinal canal, subarticular zone, or neural foraminal stenosis. C7-T1: No significant posterior disc disease, spinal canal, subarticular zone, or neural foraminal stenosis. 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 2.Healed postsurgical changes compatible with intervertebral discectomy and anterior spinal instrumentation C5-C6, without residual spinal canal or neural foraminal stenosis. [id number] Procedure Note Interface, Radiology Results - 03/09/2018 8:17 PM FRONT END SOFTWARE ENGINEER EXAMINATION: MRI CERVICAL SPINE W WO CONTRAST CLINICAL HISTORY: neck pain s p decompression w CSF leak fever COMPARISON: MRI C-spine 09/14/2017. TECHNIQUE: Multiplanar multisequence MRI examination was performed of the cervical spine with and without IV contrast. FINDINGS: Interval development of a large CSF attenuating lobulated nonenhancing suboccipital scalp collection spanning an area of approximately 13 x 3 x 8 cm ( TR by AP by CC). 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 Foramen magnum is patent. Susceptibility artifact related to prior intervertebral discectomy and anterior spinal instrumentation is noted C5-C6. The alignment of the cervical spine is within normal limits. No subluxation.No fracture. No subluxation. No suspicious osseous lesion. No degenerative marrow changes. The cervicomedullary junction is normal in appearance. No spinal cord signal abnormality. No syrinx identified. No pathologic enhancement identified suggest active demyelination. No prevertebral edema or neck mass identified. No cervical lymphadenopathy. Major vascular flow voids are present. Axial images through the disc spaces demonstrate the following: C1-C2: No significant spinal canal stenosis. C2-C3: No significant posterior disc disease, spinal canal, subarticular zone, or neural foraminal stenosis. C3-C4: No significant posterior disc disease, spinal canal, subarticular zone, or neural foraminal stenosis. C4-C5: No significant posterior disc disease, spinal canal, subarticular zone, or neural foraminal stenosis. C5-C6: Disc is surgically absent. No significant spinal canal, subarticular zone, or neural foraminal stenosis identified within the limitations of susceptibility artifact. C6-C7: No significant posterior disc disease, spinal canal, subarticular zone, or neural foraminal stenosis. C7-T1: No significant posterior disc disease, spinal canal, subarticular zone, or neural foraminal stenosis. IMPRESSION: 1. 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 2. Healed postsurgical changes compatible with intervertebral discectomy and anterior spinal instrumentation C5-C6, without residual spinal canal or neural foraminal stenosis. [facility]-[id number] [facility] Organization Address City/State/Zipcode Phone Number [facility] [address] [place] [address] IR Lumbar Puncture by Radiology (03/09/2018 5:32 PM FRONT END SOFTWARE ENGINEER) Specimen Narrative Performed At EXAMINATION: IR LUMBAR PUNCTURE [facility] CLINICAL HISTORY: headachefever COMPARISON:Lumbar spine MRI dated January 25, 2018 TECHNIQUE: Informed consent and a timeout was performed. The patient's lower back was prepped and draped in the usual sterile fashion. Fluoroscopy was used for image guidance for lumbar puncture. FINDINGS: 1% lidocaine was used for local anesthesia. Under direct fluoroscopic guidance, access to the thecal sac was made with a 27-gauge spinal needle at the L2-L3 level. A total of approximately 12 cc cloudy CSF was removed without difficulty. The patient tolerated the procedure well. There were no complications. The sample was sent to the laboratory for analysis as requested. Total fluoroscopy time was 0.07 minutes.Total radiation dose is 5 mGy=Ka,r IMPRESSION: Successful fluoroscopic guided lumbar puncture as detailed above. Please note that the CSF fluid was cloudy suggesting underlying infection. [id number] Procedure Note Interface, Radiology Results Incoming - 03/09/2018 6:32 PM FRONT END SOFTWARE ENGINEER EXAMINATION: IR LUMBAR PUNCTURE CLINICAL HISTORY: headache fever COMPARISON: Lumbar spine MRI dated January 25, 2018 TECHNIQUE: Informed consent and a timeout was performed. The patient's lower back was prepped and draped in the usual sterile fashion. Fluoroscopy was used for image guidance for lumbar puncture. FINDINGS: 1% lidocaine was used for local anesthesia. Under direct fluoroscopic guidance , access to the thecal sac was made with a 27-gauge spinal needle at the L2-L3 level. A total of approximately 12 cc cloudy CSF was removed without difficulty. The patient tolerated the procedure well. There were no complications. The sample was sent to the laboratory for analysis as requested. Total fluoroscopy time was 0.07 minutes. Total radiation dose is 5 mGy=Ka,r IMPRESSION: Successful fluoroscopic guided lumbar puncture as detailed above. Please note that the CSF fluid was cloudy suggesting underlying infection. [facility]-[id number] Performing Organization Address City/State/Zipcode Phone Number [facility] [address] [place] [address] Herpes simplex virus by PCR (03/09/2018 5:20 PM FRONT END SOFTWARE ENGINEER) Herpes virus, PCR Not-Detected Not-Detected [facility] Herpes virus, PCR See link below [facility] for PDF Lab HOSPITAL ReportComment: Specimen Performing Organization Address City/[facility]/Zipcode Phone Number [facility] DEPARTMENT OF PATHOLOGY AND [address] [place] [address] [address] [facility] Cryptococcal antigen, screen (03/09/2018 5:20 PM FRONT END SOFTWARE ENGINEER) Cryptococcal Ag Negative - No Cryptococcus antigen detected. [facility] Comment: HOSPITAL Specimen Information Specimen Source: CSF (Spinal Fluid) Specimen Site: Back Specimen Cerebrospinal fluid - Back Performing Organization Address City/[facility]/Zipcode Phone Number [facility] DEPARTMENT OF PATHOLOGY AND [address] [place] [id number] [place] [address] CSF culture (03/09/2018 5:20 PM FRONT END SOFTWARE ENGINEER) CSF culture No growth after 3 days. [facility] isolate Comment: HOSPITAL Specimen Information Specimen Source: CSF (Spinal Fluid) Specimen Site: Back Specimen Cerebrospinal fluid - Back Performing Organization Address City/[facility] Phone Number [facility] DEPARTMENT OF PATHOLOGY AND [address] [place] [phone] [place] [address] CSF cell count with differential (03/09/2018 5:20 PM FRONT END SOFTWARE ENGINEER) CSF tube number Tube 2 [facility] Color, CSF Colorless [facility] Appearance, CSF Hazy (A) [facility] RBC, CSF 0 0 - 1 /CMM [facility] WBC, CSF 2,132 (HH) 0 - 5 /CMM [facility] CSF mononuclear cell Diff to follow [facility] Neutrophils, CSF 61 % [facility] Lymphocytes, CSF 20 % [facility] Monocytes, CSF 17 % [facility] Eosinophils, CSF 2 % [facility] Specimen Cerebrospinal fluid Performing Organization Address City/[facility]/Zipcode Phone Number [facility] DEPARTMENT OF PATHOLOGY [address] [place] [address] AND [facility] [address] [place] [address] HOSPITAL Protein, CSF (03/09/2018 5:20 PM FRONT END SOFTWARE ENGINEER) Protein, CSF 89 (H) 15 - 45 mg/dL [facility] Specimen Cerebrospinal fluid Performing Organization Address City/[facility] Phone Number [facility] DEPARTMENT OF PATHOLOGY [address] [place] [address] Glucose level, CSF (03/09/2018 5:20 PM FRONT END SOFTWARE ENGINEER) Glucose, CSF 20 (LL) 40 - 70 mg/dL [facility] Comment: [facility] Final results called to and read back by Galdino Richter/RANDI05/10/2017 19:36 SLTT. Specimen Cerebrospinal fluid Performing Organization Address [facility] Phone Number [facility] DEPARTMENT OF PATHOLOGY [address] [place] [address] Blood culture, aerobic & anaerobic (03/09/2018 3:30 PM FRONT END SOFTWARE ENGINEER)Only the most recent of2 resultswithin the time period is included. Pathologist [facility] Blood culture No growth after 5 days of incubation. [facility] isolate Comment: HOSPITAL Specimen Information Specimen Source: Blood Specimen Site: Antecubital, left Specimen Blood - Antecubital, left Performing Organization Address [facility] Phone Number [facility] DEPARTMENT OF PATHOLOGY AND [address] [place] [address] [address] CRITICAL CARE (03/09/2018 3:20 PM FRONT END SOFTWARE ENGINEER) Narrative Performed At Wojciech Mendez MD 03/10/20188:44 PM Critical Care Performed by: Wojciech Mendez MD Authorized by: Wojciech Mendez MD Critical care provider statement: Critical care time (minutes):35 Critical care time was exclusive of:Separately billable procedures and treating other patients and teaching time Critical care was necessary to treat or prevent imminent or life-threatening deterioration of the following conditions:ELA TEACHER failure or compromise and sepsis Critical care was time spent personally by me on the following activities:Ordering and performing treatments and interventions, development of treatment plan with patient or surrogate, ordering and review of laboratory studies, ordering and review of radiographic studies, discussions with consultants, pulse oximetry, evaluation of patient's response to treatment, re-evaluation of patient's condition, examination of patient, review of old charts, interpretation of cardiac output measurements and obtaining history from patient or surrogate James 'yes' if you are taking over critical care for this patient from another provider.: no Hepatic function panel (03/09/2018 3:10 PM FRONT END SOFTWARE ENGINEER) Albumin 4.4 3.5 - 5.0 g/dL [facility] Total bilirubin 0.4 0.2 - 1.2 mg/dL [facility] Bilirubin direct <0.2 0.0 - 0.3 mg/dL [facility] Alkaline phosphatase 66 35 - 104 U/L [facility] Protein 7.5 6.3 - 8.3 g/dL [facility] ALT 14 5 - 50 U/L [facility] AST 20 10 - 35 U/L [facility] Specimen Plasma specimen Performing Organization Address City/State/Zipcode Phone Number [facility] DEPARTMENT OF PATHOLOGY [address] [place] [address] AND GENOMIC MEDICINE [facility] [address] MRI Lumbar Spine Wo Contrast (01/25/2018 11:30 AM CDT) Specimen Narrative Performed At EXAMINATION: MRI LUMBAR SPINE WO CONTRAST [facility] CLINICAL HISTORY: M54.5 Low back pain, G89.29 Other chronic pain, chronic lower back pain COMPARISON:None TECHNIQUE: Multiplanar multisequence noncontrast enhanced examination was performed of the Lumbar spine. FINDINGS: Vertebral body heights are maintained without acute fracture. No focal significant marrow signal abnormality is appreciated. Soft tissues shows no mass , adenopathy or aneurysm. The partially visualized spinal cord and the conus are unremarkable. There is 1 to 2 mm retrolisthesis of L3 and L4. Axial images through the disc spaces demonstrate the following: L1-L2: No significant posterior disc disease, spinal canal or neural foraminal stenosis. L2-L3: No significant posterior disc disease, spinal canal or neural foraminal stenosis. L3-L4: No significant posterior disc disease, spinal canal or neural foraminal stenosis. L4-L5: There is mild facet hypertrophy. There is no stenosis. L5-S1: There is mild disc desiccation and minimal bulge without stenosis. No significant posterior disc disease, spinal canal or neural foraminal stenosis at other visualized levels. IMPRESSION: There is very mild spondylosis without stenosis. [facility]-[id number] Procedure Note Interface, Radiology Results Incoming - 01/25/2018 1:27 PM CDT EXAMINATION: MRI LUMBAR SPINE WO CONTRAST CLINICAL HISTORY: M54.5 Low back pain, G89.29 Other chronic pain, chronic lower back pain COMPARISON: None TECHNIQUE: Multiplanar multisequence noncontrast enhanced examination was performed of the Lumbar spine. FINDINGS: Vertebral body heights are maintained without acute fracture. No focal significant marrow signal abnormality is appreciated. Soft tissues shows no mass , adenopathy or aneurysm. The partially visualized spinal cord and the conus are unremarkable. There is 1 to 2 mm retrolisthesis of L3 and L4. Axial images through the disc spaces demonstrate the following: L1-L2: No significant posterior disc disease, spinal canal or neural foraminal stenosis. L2-L3: No significant posterior disc disease, spinal canal or neural foraminal stenosis. L3-L4: No significant posterior disc disease, spinal canal or neural foraminal stenosis. L4-L5: There is mild facet hypertrophy. There is no stenosis. L5-S1: There is mild disc desiccation and minimal bulge without stenosis. No significant posterior disc disease, spinal canal or neural foraminal stenosis at other visualized levels. IMPRESSION: There is very mild spondylosis without stenosis. [facility]-[id number] Performing Organization Address City/State/Zipcode Phone Number [facility] [address] [place] [address] Estimated GFR (11/03/2017 5:40 AM CDT)Only the most recent of3 resultswithin the time period is included. GFR Non Af Amer 88 mL/min/1.73 [facility] DEPARTMENT OF m2 PATHOLOGY AND GENOMIC MEDICINE GFR Af Amer >90 mL/min/1.73 [facility] DEPARTMENT OF Comment: m2 PATHOLOGY AND Chronic kidney disease: <60 mL/min/1.73m2 GENOMIC MEDICINE Kidney failure: <15 mL/min/1.73m2 The estimated [...] specimen Performing Organization Address City/State/Zipcode Phone Number [facility] DEPARTMENT OF PATHOLOGY [id number] [place] [address]. [place] [address] AND [employer] POC glucose (11/02/2017 9:49 AM CDT)Only the most recent of2 resultswithin the time period is included. POC glucose 106 (H) 65 - 99 mg/dL [facility] DEPARTMENT OF Comment: PATHOLOGY AND RN Notified [employer] Meter ID: [id number] Mutuel Cashier: Elton Hill Specimen Performing Organization Address [facility] Phone Number [facility] DEPARTMENT OF PATHOLOGY [id number] [place] [address]. [place] [address] AND [employer] [facility] [place] > I Hour (11/02/2017 9:40 AM CDT) Specimen Narrative Performed At EXAM: [facility] Intraoperative fluoroscopy. INDICATION: Spine surgery COMPARISON: None. IMPRESSION: Endotracheal tube with tip below field of view. Esophageal temperature probe looping in the and nasopharynx with tip below field of view. Oral enteric tube with tip below field of view. Anterior approach cervical spinal surgery with placement of anterior plate and screw fixation C5-C6. Nerve monitoring needles. Intraoperative fluoroscopic images. Radiologist was not present during the examination. Please see separate operative report for additional detail. Fluoroscopy time equals 7.0 seconds. 4 image(s). Procedure Note Interface, Radiology Results Incoming - 11/02/2017 9:54 AM CDT EXAM: Intraoperative fluoroscopy. INDICATION: Spine surgery COMPARISON: None. IMPRESSION: Endotracheal tube with tip below field of view. Esophageal temperature probe looping in the and nasopharynx with tip below field of view. Oral enteric tube with tip below field of view. Anterior approach cervical spinal surgery with placement of anterior plate and screw fixation C5-C6. Nerve monitoring needles. Intraoperative fluoroscopic images. Radiologist was not present during the examination. Please see separate operative report for additional detail. Fluoroscopy time equals 7.0 seconds. 4 image(s). Performing Organization Address City/[facility]/Zipcode Phone Number [facility] [address] [place] [address] POC panel 4 (11/02/2017 7:07 AM CDT) POC sodium 141 135 - 148 [facility] DEPARTMENT OF mmol/L PATHOLOGY AND GENOMIC MEDICINE POC potassium 4.7 3.5 - 5.0 [facility] DEPARTMENT OF mmol/L PATHOLOGY AND GENOMIC MEDICINE POC hematocrit 38 37 - 47 % [facility] DEPARTMENT OF PATHOLOGY AND GENOMIC MEDICINE POC glucose 91 65 - 99 mg/dL [facility] DEPARTMENT OF PATHOLOGY AND GENOMIC MEDICINE POC hemoglobin 12.9 12.0 - 16.0 [facility] DEPARTMENT OF Comment: g/dL PATHOLOGY AND Meter ID: [id number] GENOMIC MEDICINE [employer] Cashier: James Ho Specimen Blood Performing Organization Address City/[facility]/Zipcode Phone Number [facility] DEPARTMENT OF PATHOLOGY [address] [place] [address] AND [employer] XR Chest 2 Vw (11/01/2017 10:56 AM CDT) Specimen Narrative Performed At EXAMINATION:XR CHEST 2 VW [facility] CLINICAL HISTORY:Z01.818 Encounter for other preprocedural examination, PRE OP XR CHEST 2 VWimages are submitted COMPARISON:January 09, 2015. FINDINGS: Lines/tubes:None. Heart and mediastinum:Unremarkable Lungs:The lungs are well inflated and clear. There is no evidence of pneumonia or pulmonary edema. Pleura:There is no pleural effusion or pneumothorax. Bones:unremarkable. IMPRESSION: Negative for acute cardiopulmonary disease. [id number] Procedure Note Interface, Radiology Results Incoming - 11/01/2017 11:01 AM CDT EXAMINATION: XR CHEST 2 VW CLINICAL HISTORY: Z01.818 Encounter for other preprocedural examination, PRE OP XR CHEST 2 VW images are submitted COMPARISON: January 09, 2015. FINDINGS: Lines/tubes: None. Heart and mediastinum: Unremarkable Lungs: The lungs are well inflated and clear. There is no evidence of pneumonia or pulmonary edema. Pleura: There is no pleural effusion or pneumothorax. Bones: unremarkable. IMPRESSION: Negative for acute cardiopulmonary disease. [facility]-[id number] Performing Organization Address City/[facility]/Zipcode Phone Number [facility] [address] [place] [address] ECG Pre/Post Op (11/01/2017 9:16 AM CDT) Ventricular rate 70 [facility] Atrial rate 70 [facility] ME interval 152 [facility] QRSD interval 80 [facility] QT interval 390 [facility] QTC interval 421 [facility] P axis 1 26 [facility] QRS axis 1 15 [facility] T wave axis 40 [facility] EKG impression Normal sinus rhythm-Cannot rule out Anterior infarct , age undetermined-Abnormal ECG-In automated comparison with ECG of 27-AUG-2015 09:33, -Minimal criteria for Anterior infarct are now present-Nonspecific T wave abnormality, worse in Anterior [facility] MUSE leads- Specimen Performing Organization Address City/State/Zipcode Phone Number [facility] [address] [place] [address] Creatinine, whole blood (09/14/2017 3:15 PM CDT) Creatinine, whole 0.9 0.5 - 1.5 mg/dL [facility] DEPARTMENT OF blood PATHOLOGY AND [employer]IC[employer] Specimen Plasma specimen Performing Organization Address City/State/Zipcode Phone Number [facility] DEPARTMENT OF PATHOLOGY [address] [place] [address] [employer] [address] Cervical Spine Wo Contrast (09/14/2017 3:11 PM CDT) Specimen Narrative Performed At Study: CT CERVICAL SPINE [...] C3-4 from a broad shallow disc protrusion. [id number] Procedure Note Hm Interface, Radiology Results - [...] C3-4 from a broad shallow disc protrusion. [id number] Performing Organization Address City/State/Zipcode Phone Number [facility] [address] [place] [address] after 09/09/2017 Insurance Payer Benefit Plan / Group Subscriber ID Effective Phone Address Type Dates [facility] xxxxxxxxx 2013-Pres HMO/PPO CHOICE/CHOICE + ent MEDICARE MEDICARE PART A AND B xxxxxxxxxxx 2017-Pres [place], [place] Medicare ent (Home) [place] [address] Advance Directives Patient has advance care planning documents, and code status on file. For more information, please contact:Piyush Arias[address] [place] [address] Code Status Date Activated Date Inactivated Comments Full Code 03/09/2018 8:31 PM 03/17/2018 4:39 PM Code Status decision reached by: Patient
[2018-09-10] MEDS ORDERED: FENTANYL CITR 100 MCG/2 ML ONE (23:08)
[2018-09-10] MEDS ORDERED: ONDANSETRON 4 MG/2 ML VIAL ONE (23:08)
[2018-09-10] MEDS ORDERED: NA CHLORIDE 0.9% 1,000 ML ONE (23:09)
[2018-09-10 23:22] LABS: Absolute Lymphocytes (CBC) 4.5 K/uL (0.7-4.9); Basophils % 0.4 % (0-1.3); Eosinophils % 1.3 % (0-4.4); Hematocrit 42.2 % (36.0-45.0); Lymphocytes % 33.2 % (15.3-44.8); MPV 8.4 fL (7.6-11.3); Monocytes % 5.6 % (3.3-12.3); RBC Red Blood Cell Count 4.95 M/uL (3.86-4.86)
[2018-09-10 23:32] LABS: Albumin 3.8 g/dL (3.4-5.0); Bilirubin Direct 0.1 mg/dL (0-0.2); Bilirubin Total 0.4 mg/dL (0.2-1.0); Potassium 3.4 mmol/L (3.5-5.1); Protein, Total 7.9 g/dL (6.4-8.2)
[2018-09-10] MEDS ORDERED: HALOPERIDOL LACT 5 MG/ML INJ ONE (23:46)
[2018-09-11] MEDS ORDERED: HALOPERIDOL LACT 5 MG/ML INJ ONE (00:06)
[2018-09-11] MEDS ORDERED: DIPHENHYDRAMINE 50 MG/ML VIAL ONE (00:06)
[2018-09-11] MEDS ORDERED: NA CHLORIDE 0.9% 50 ML IV ONE (01:55)
[2018-09-11] MEDS ORDERED: HYDROMORPHONE HCL 0.5 MG/0.5 ML INJ ONE (01:55)
[2018-09-11] MEDS ORDERED: CEFOXITIN SODIUM 1 GM/VIAL ONE ×2 (01:55→03:23)
--- NOTE | 2018-09-11 02:37 | EDPHYS ---
Physician Documentation [facility] Name: Jennifer Jansen Age: 53 yrs Sex: Female : 1965 Arrival Date: 09/10/2018 Time: 22:16 Bed 4 Private MD: ED Physician Albaro Mejia HPI: 09/11 04:25 This 53 yrs old Female presents to ER via Wheelchair with complaints of gs Abdominal Pain,. 04:34 The patient presents with abdominal pain in the lower abdomen, in the left lower gs quadrant. Onset: The symptoms/episode began/occurred 2 day(s) ago, and became worse and became persistent. Associated signs and symptoms: Pertinent positives: diarrhea, vomiting. The symptoms are described as crampy, sharp. Modifying factors: The symptoms are alleviated by nothing, the symptoms are aggravated by nothing. Severity of pain: At its worst the pain was severe in the emergency department the pain is unchanged. Modifying factors: there are no obvious modifying factors. Associated signs and symptoms: Pertinent positives:. 04:35 Associated signs and symptoms: Pertinent positives: fever, Pertinent negatives: chest gs pain, constipation. The patient has experienced similar episodes in the past, a few times. 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 LMP N/A - Post-menopause lp1 Historical: - Allergies: 22:29 Aspirin; aa1 22:29 Ciprofloxacin; aa1 22:29 Iodine; aa1 22:29 Propranolol; aa1 22:29 shellfish derived; aa1 22:29 sulfamethoxazole; aa1 22:29 TRIMETHOPRIM; aa1 - Home Meds: 09/11 03:00 Lunesta Oral [Active]; Minastrin 24 Fe Oral [Active]; Pristiq Oral [Active]; Wellbutrin lp1 Oral [Active]; Zyrtec Oral [Active]; - PMHx: 09/10 22:29 chiari malformation; pseudoseizures; Depression; Migraines; gastroparesis; PCOS; aa1 - PSHx: 22:29 Cholecystectomy; Knee surgery; Brain sx; C1 laminectomy; aa1 - Immunization history:: Flu vaccine is up to date. - Social history:: Smoking status: Patient/guardian denies using tobacco. - Ebola Screening: : No symptoms or risks identified at this time. ROS: 09/11 04:35 All other systems are negative. gs Exam: 04:35 Head/Face: Normocephalic, atraumatic. Eyes: Pupils equal round and reactive to light, gs extra-ocular motions intact. Lids and lashes normal. Conjunctiva and sclera are non-icteric and not injected. Cornea within normal limits. Periorbital areas with no swelling, redness, or edema. ENT: Nares patent. No nasal discharge, no septal abnormalities noted. Tympanic membranes are normal and external auditory canals are clear. Oropharynx with no redness, swelling, or masses, exudates, or evidence of obstruction, uvula midline. Mucous membranes moist. Neck: Trachea midline, no thyromegaly or masses palpated, and no cervical lymphadenopathy. Supple, full range of motion without nuchal rigidity, or vertebral point tenderness. No Meningismus. Chest/axilla: Normal chest wall appearance and motion. Nontender with no deformity. No lesions are appreciated. Cardiovascular: Regular rate and rhythm with a normal S1 and S2. No gallops, murmurs, or rubs. Normal PMI, no JVD. No pulse deficits. Respiratory: Lungs have equal breath sounds bilaterally, clear to auscultation and percussion. No rales, rhonchi or wheezes noted. No increased work of breathing, no retractions or nasal flaring. Back: No spinal tenderness. No costovertebral tenderness. Full range of motion. Skin: Warm, dry with normal turgor. Normal color with no rashes, no lesions, and no evidence of cellulitis. MS/ Extremity: Pulses equal, no cyanosis. Neurovascular intact. Full, normal range of motion. Neuro: Awake and alert, GCS 15, oriented to person, place, time, and situation. Cranial nerves II-XII grossly intact. Motor strength 5/5 in all extremities. Sensory grossly intact. Cerebellar exam normal. Normal gait. 04:35 Constitutional: The patient appears alert, awake, uncomfortable. 04:35 Abdomen/GI: Palpation: moderate abdominal tenderness, in the left lower quadrant, rebound tenderness, is not appreciated. Vital Signs: 09/10 22:29 BP 136 / 74; Pulse 102; Resp 20; Pulse Ox 100% on R/A; Weight 69.4 kg; Height 4 ft. 10 aa1 in. (147.32 cm); 22:40 Temp 99.8(O); lp1 22:45 BP 126 / 89; Pulse 105; Resp 24; Pulse Ox 100% on R/A; lp1 23:15 BP 126 / 75; Pulse 87; Resp 16; Pulse Ox 99% on R/A; lp1 23:20 BP 118 / 69; Pulse 73; Resp 21; Pulse Ox 100% on R/A; Pain 10/10; lp1 23:40 BP 124 / 66; Pulse 87; Resp 22; Pulse Ox 100% on R/A; lp1 09/11 00:00 BP 112 / 66; Pulse 83; Resp 22; Pulse Ox 100% on R/A; lp1 00:30 BP 106 / 75; Pulse 86; Resp 22; Temp 98.6(O); Pulse Ox 100% on R/A; Pain 10/10; lp1 01:45 BP 109 / 72; Pulse 83; Resp 15; Pulse Ox 96% on R/A; lp1 02:45 BP 105 / 60; Pulse 90; Resp 18; Pulse Ox 100% on R/A; lp1 03:15 BP 115 / 74; Pulse 81; Resp 14; Pulse Ox 98% on R/A; Pain 6/10; lp1 09/10 22:29 Body Mass Index 31.98 (69.40 kg, 147.32 cm) aa1 MDM: 09/10 22:25 Patient medically screened. 09/11 04:35 Differential diagnosis: bowel obstruction, diverticulitis, gastritis, non-specific abd gs pain. Data reviewed: vital signs, nurses notes. Counseling: I had a detailed discussion with the patient and/or guardian regarding: the historical points, exam findings, and any diagnostic results supporting the discharge/admit diagnosis. Response to treatment: the patient's symptoms have mildly improved after treatment. ED course: pt still with a significant amount of pain and tenderness, sees dr giron will admit. 09/10 22:25 Order name: Basic Metabolic Panel; Complete Time: 23:46 09/10 22:25 Order name: CBC with Diff; Complete Time: 23:29 09/10 22:25 Order name: Hepatic Function; Complete Time: 23:46 09/10 22:25 Order name: Lipase; Complete Time: 23:46 09/10 23:30 Order name: CT Stone Protocol 09/10 23:30 Order name: Urine Microscopic Only 09/10 22:25 Order name: IV Saline Lock; Complete Time: 22:49 09/10 22:25 Order name: Labs collected and sent; Complete Time: 22:49 Administered Medications: 09/10 22:55 Drug: Zofran 4 mg Route: IVP; Site: right forearm; lp1 23:58 Follow up: Response: Nausea is decreased lp1 22:55 Drug: fentaNYL (PF) 50 mcg Route: IVP; Site: right forearm; lp1 23:30 Follow up: Response: Pain is unchanged, physician notified lp1 22:55 Drug: NS 0.9% 1000 ml Route: IV; Rate: 1 bolus; Site: right forearm; lp1 23:58 Follow up: IV Status: Completed infusion; IV Intake: 1000ml lp1 23:35 Drug: HALdol 2.5 mg Route: IVP; Site: right forearm; lp1 23:50 Follow up: Response: No change in condition lp1 23:57 Drug: Benadryl 25 mg Route: IVP; Site: right forearm; lp1 09/11 00:45 Follow up: Response: No adverse reaction; No change in condition lp1 09/10 23:58 Drug: HALdol 2.5 mg Route: IVP; Site: right forearm; lp1 09/11 00:45 Follow up: Response: No change in condition lp1 01:47 Drug: cefOXitin 1 grams Route: IVPB; Infused Over: 30 mins; Site: right forearm; lp1 02:15 Follow up: IV Status: Completed infusion; IV Intake: 50ml lp1 01:47 Drug: Dilaudid 0.5 mg Route: IVP; Site: right forearm; lp1 02:15 Follow up: Response: Marked relief of symptoms lp1 Disposition: 09/11/18 02:37 Hospitalization ordered by Mauricio Downing for Inpatient Admission. Preliminary diagnosis is Diverticulitis of large intestine without perforation or abscess with bleeding. - Bed requested for Telemetry/MedSurg (Inpatient). - Status is Inpatient Admission. lp1 - Condition is Stable. - Problem is new. - Symptoms have improved. UTI on Admission? No Signatures: Dispatcher [employer] EDLy Sharma RN RN aa1 Lashaun Snell RN RN lp1 Ashley Garcia RN RN MejiaAlbaro fofana MD MD Corrections: (The following items were deleted from the chart) 02:46 02:37 Hospitalization Ordered by Mauricio Downing MD for Inpatient Admission. Preliminary cg diagnosis is Diverticulitis of large intestine without perforation or abscess with bleeding. Bed requested for Telemetry/MedSurg (Inpatient). Status is Inpatient Admission. Condition is Stable. Problem is new. Symptoms have improved. UTI on Admission? No. gs 03:43 02:46 09/11/2018 02:37 Hospitalization Ordered by Mauricio Downing MD for Inpatient lp1 Admission. Preliminary diagnosis is Diverticulitis of large intestine without perforation or abscess with bleeding. Bed requested for Telemetry/MedSurg (Inpatient). Status is Inpatient Admission. Condition is Stable. Problem is new. Symptoms have improved. UTI on Admission? No. cg
--- NOTE | 2018-09-11 02:37 | ER ---
Nurse's Notes [facility] Name: Jennifer Jansen Age: 53 yrs Sex: Female : 1965 Arrival Date: 09/10/2018 Time: 22:16 Bed 4 Private MD: Diagnosis: Diverticulitis of large intestine without perforation or abscess with bleeding Presentation: 09/10 22:26 Presenting complaint: Significant other states: pt has hx of gastroparesis and c/o LLQ aa1 pain and fever since this am and vomiting x 45 mins. Also reports pt has stress induced pseudoseizures and had one approx 10 mins ago while waiting to be signed in. Transition of care: patient was not received from another setting of care. Onset of symptoms was September 10, 2018. Risk Assessment: Do you want to hurt yourself or someone else? Patient reports no desire to harm self or others. Initial Sepsis Screen: Does the patient meet any 2 criteria? No. Patient's initial sepsis screen is negative. Does the patient have a suspected source of infection? No. Patient's initial sepsis screen is negative. Care prior to arrival: None. 22:26 Method Of Arrival: Wheelchair aa1 22:26 Acuity: ARTHUR 3 aa1 Triage Assessment: 22:29 General: Appears in no apparent distress. uncomfortable, Behavior is cooperative, aa1 appropriate for age, anxious. 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 LMP N/A - Post-menopause lp1 Historical: - Allergies: 22:29 Aspirin; aa1 22:29 Ciprofloxacin; aa1 22:29 Iodine; aa1 22:29 Propranolol; aa1 22:29 shellfish derived; aa1 22:29 sulfamethoxazole; aa1 22:29 TRIMETHOPRIM; aa1 - Home Meds: 09/11 03:00 Lunesta Oral [Active]; Minastrin 24 Fe Oral [Active]; Pristiq Oral [Active]; Wellbutrin lp1 Oral [Active]; Zyrtec Oral [Active]; - PMHx: 09/10 22:29 chiari malformation; pseudoseizures; Depression; Migraines; gastroparesis; PCOS; aa1 - PSHx: 22:29 Cholecystectomy; Knee surgery; Brain sx; C1 laminectomy; aa1 - Immunization history:: Flu vaccine is up to date. - Social history:: Smoking status: Patient/guardian denies using tobacco. - Ebola Screening: : No symptoms or risks identified at this time. Screenin:45 Abuse screen: Denies threats or abuse. Denies injuries from another. Nutritional lp1 screening: No deficits noted. Tuberculosis screening: No symptoms or risk factors identified. Fall Risk Total Wilkerson Fall Scale indicates High Risk Score (45 or more points). Fall prevention measures have been instituted. Side Rails Up X 2 Frequent Obs/Assessments Occuring Family Present and informed to notify staff if the need to leave the bedside. Assessment: 22:45 General: Appears uncomfortable, Behavior is anxious, crying. Pain: Complains of pain in lp1 left lower quadrant, head Pain currently is 10 out of 10 on a pain scale. Quality of pain is described as pressure, sharp, stabbing, Pain began headache x 2 weeks. Neuro: Level of Consciousness is awake, alert, obeys commands, Oriented to person, place, time, situation, Pupils are PERRLA, Reports headache occipital area, hx of pseudo-seizures. Cardiovascular: Capillary refill < 3 seconds in bilateral fingers toes. Respiratory: Respiratory effort is even, unlabored, Respiratory pattern is regular, Breath sounds are clear bilaterally. GI: Abdomen is non-distended, Bowel sounds present X 4 quads. Abdomen is tender to palpation in left lower quadrant Reports lower abdominal pain, nausea, vomiting. : No signs and/or symptoms were reported regarding the genitourinary system. EENT: No signs and/or symptoms were reported regarding the EENT system. Derm: Skin is intact, Skin is dry, Skin is normal. Musculoskeletal: No deficits noted. 22:55 Reassessment: Assisted patient with change into brief, patient states episode of lp1 urinary incontinence. 23:30 Reassessment: Patient yelling, moaning, crying due to pain to head; Provider notified. lp1 23:45 Reassessment: Patient continuing to yell out, moaning due to pain to head; States pain lp1 to LLQ of abdomen as well; Provider notified. 09/11 00:15 Reassessment: Patient appears more relaxed at this time; lights turned off for patient lp1 comfort; at bedside. 00:28 Reassessment: Notified of patient with soiled brief; Assisted patient with brief lp1 change; small amount of diarrhea noted. 00:31 Reassessment:. Reassessment: Patient states continued pain to head with no relief. lp1 General: Behavior is calm. Pain: Pain currently is 10 out of 10 on a pain scale. 01:30 Reassessment: Patient continuing to moan out in pain; states pain to head and LLQ of lp1 abdomen; Provider notified. Vital Signs: 09/10 22:29 BP 136 / 74; Pulse 102; Resp 20; Pulse Ox 100% on R/A; Weight 69.4 kg; Height 4 ft. 10 aa1 in. (147.32 cm); 22:40 Temp 99.8(O); lp1 22:45 BP 126 / 89; Pulse 105; Resp 24; Pulse Ox 100% on R/A; lp1 23:15 BP 126 / 75; Pulse 87; Resp 16; Pulse Ox 99% on R/A; lp1 23:20 BP 118 / 69; Pulse 73; Resp 21; Pulse Ox 100% on R/A; Pain 10/10; lp1 23:40 BP 124 / 66; Pulse 87; Resp 22; Pulse Ox 100% on R/A; lp1 09/11 00:00 BP 112 / 66; Pulse 83; Resp 22; Pulse Ox 100% on R/A; lp1 00:30 BP 106 / 75; Pulse 86; Resp 22; Temp 98.6(O); Pulse Ox 100% on R/A; Pain 10/10; lp1 01:45 BP 109 / 72; Pulse 83; Resp 15; Pulse Ox 96% on R/A; lp1 02:45 BP 105 / 60; Pulse 90; Resp 18; Pulse Ox 100% on R/A; lp1 03:15 BP 115 / 74; Pulse 81; Resp 14; Pulse Ox 98% on R/A; Pain 6/10; lp1 09/10 22:29 Body Mass Index 31.98 (69.40 kg, 147.32 cm) aa1 ED Course: 09/10 22:16 Patient arrived in ED. es 22:23 Albaro Mejia MD is Attending Physician. gs 22:28 Triage completed. aa1 22:29 Arm band placed on left wrist. aa1 22:31 Lashaun Snell, LISA is Primary Nurse. lp1 22:35 Patient has correct armband on for positive identification. Placed in gown. Bed in low lp1 position. Side rails up X2. Seizure precautions initiated. station captain on. Pulse ox on. NIBP on. 22:45 Missed attempt(s): 20 gauge in right antecubital area. Inserted saline lock: 22 gauge lp1 in right forearm, using aseptic technique. Blood collected. 09/11 01:15 CT Stone Protocol In Process Unspecified. EDMS 02:21 No provider procedures requiring assistance completed. lp1 02:36 Mauricio Downing MD is Hospitalizing Provider. 02:54 Patient admitted, IV remains in place. lp1 Administered Medications: 09/10 22:55 Drug: Zofran 4 mg Route: IVP; Site: right forearm; lp1 23:58 Follow up: Response: Nausea is decreased lp1 22:55 Drug: fentaNYL (PF) 50 mcg Route: IVP; Site: right forearm; lp1 23:30 Follow up: Response: Pain is unchanged, physician notified lp1 22:55 Drug: NS 0.9% 1000 ml Route: IV; Rate: 1 bolus; Site: right forearm; lp1 23:58 Follow up: IV Status: Completed infusion; IV Intake: 1000ml lp1 23:35 Drug: HALdol 2.5 mg Route: IVP; Site: right forearm; lp1 23:50 Follow up: Response: No change in condition lp1 23:57 Drug: Benadryl 25 mg Route: IVP; Site: right forearm; lp1 09/11 00:45 Follow up: Response: No adverse reaction; No change in condition lp1 09/10 23:58 Drug: HALdol 2.5 mg Route: IVP; Site: right forearm; lp1 09/11 00:45 Follow up: Response: No change in condition lp1 01:47 Drug: cefOXitin 1 grams Route: IVPB; Infused Over: 30 mins; Site: right forearm; lp1 02:15 Follow up: IV Status: Completed infusion; IV Intake: 50ml lp1 01:47 Drug: Dilaudid 0.5 mg Route: IVP; Site: right forearm; lp1 02:15 Follow up: Response: Marked relief of symptoms lp1 Intake: 09/10 23:58 IV: 1000ml; Total: 1000ml. lp1 09/11 02:15 IV: 50ml; Total: 1050ml. lp1 Outcome: 02:37 Decision to Hospitalize by Provider. gs 02:54 Condition: stable lp1 02:54 Instructed on the need for admit. 02:59 Admitted to Tele accompanied by nurse, via stretcher, room 410, with chart, Report lp1 called to LISA Ritchie 03:30 Patient left the ED. lp1 Signatures: Dispatcher [employer] EDLy Sharma RN RN aa1 Judy Conroy Laura, RN RN lp1 Albaro Mejia MD MD Corrections: (The following items were deleted from the chart) 03:44 03:43 Patient left the ED. lp1 lp1
--- NOTE | 2018-09-11 02:55 | P.HP ---
Certification for Inpatient Patient admitted to: Inpatient With expected LOS: >2 Midnights Practitioner: I am a practitioner with admitting privileges, knowledge of patient current condition, hospital course, and medical plan of care. Services: Services provided to patient in accordance with Admission requirements found in Title 42 Section 412.3 of the Code of Federal Regulations Patient History Date of Service: 09/11/18 Reason for admission: Diverticulitis History of Present Illness: Ms Jansen is a 53 years old woman with history of Arnold-chiari malformation, diverticulosis, gastroparesis, who start yesterday morning with left lower quadrant abdominal pain. The patient was constant, 8/10 of intensity, no radiated, associated with nausea and vomiting. She also has had diarrhea with some blood on it. She denied fever or chills. Lab work in ER shows leukocytosis 13.7K, CT abdo/pelvis consistent with distal descending colonic diverticulitis. Allergies aspirin Allergy (Severe, Verified 01/30/17 13:57) Anaphylaxis ciprofloxacin Allergy (Severe, Verified 01/30/17 13:57) Anaphylaxis iodine Allergy (Severe, Verified 01/30/17 13:57) Anaphylaxis sulfamethoxazole [From Bactrim] Allergy (Severe, Verified 01/30/17 13:57) Anaphylaxis trimethoprim [From Bactrim] Allergy (Severe, Verified 01/30/17 13:57) Anaphylaxis shellfish derived Allergy (Verified 01/30/17 13:57) Anaphylaxis propranolol Allergy (Uncoded 01/30/17 13:57) Unknown Home medications list reviewed: Yes Home Medications: Cholecalciferol (Vitamin D3) [Vitamin D3] 1 cap PO DAILY 08/17/15 Gabapentin [Neurontin*] 600 mg PO BID 08/17/15 Omeprazole Magnesium [Prilosec Otc] 20 mg PO DAILY 08/17/15 Topiramate [Topamax*] 50 mg PO BID 08/17/15 Trazodone [Desyrel*] 150 mg PO BEDTIME 08/17/15 Amitriptyline HCl 25 mg PO BEDTIME 01/30/17 Duloxetine HCl [Cymbalta] 90 mg PO DAILY 01/30/17 Loratadine [Claritin] 10 mg PO DAILY 01/30/17 Magnesium Oxide [Magnesium] 400 mg PO DAILY 01/30/17 Potassium Gluconate [Potassium] 600 mg PO DAILY 01/30/17 Tramadol HCl [Ultram] 50 mg PO Q6HP PRN 01/30/17 - Past Medical/Surgical History Diabetic: No -: Tremors (general) -: Arnold-Chiari malformation -: nerve block epidural -: laminectomy -: craniotomy -: cholecystectomy -: left knee surgery - Family History Mother -: Cancer Notes: breast ca Father -: Heart disease, Diabetes - Social History Smoking Status: Former smoker Alcohol use: No CD- Drugs: No Caffeine use: Yes Place of Residence: Home Review of Systems 10-point ROS is otherwise unremarkable Physical Examination - Physical Exam General: Alert, In no apparent distress HEENT: Atraumatic, PERRLA, Mucous membr. moist/pink, EOMI, Sclerae nonicteric Neck: Supple, 2+ carotid pulse no bruit, No LAD, Without JVD or thyroid abnormality Respiratory: Clear to auscultation bilaterally, Normal air movement Cardiovascular: Regular rate/rhythm, Normal S1 S2 Gastrointestinal: Normal bowel sounds, Tenderness (LLQ pain to palpation) Musculoskeletal: No tenderness Integumentary: No rashes Neurological: Normal speech, Normal strength at 5/5 x4 extr, Normal tone, Normal affect Lymphatics: No axilla or inguinal lymphadenopathy - Studies Laboratory Data (last 24 hrs) 09/10/18 22:45: WBC 13.7 H, Hgb 13.6, Hct 42.2, Plt Count 314 09/10/18 22:45: Sodium 140, Potassium 3.4 L, BUN 9, Creatinine 0.93, Glucose 105 , Total Bilirubin 0.4, AST 13 L, ALT 16, Alkaline Phosphatase 73, Lipase 94 Assessment and Plan - Problems (Diagnosis) (1) Diverticulitis large intestine Current Visit: Yes Status: Acute Qualifiers: Diverticulitis bleeding: with bleeding Diverticulitis complication: without perforation or abscess Qualified Code(s): K57.33 - Diverticulitis of large intestine without perforation or abscess with bleeding (2) Gastroparesis Current Visit: Yes Status: Acute (3) Arnold-Chiari syndrome Current Visit: No Status: Acute - Plan Will admit the patient due to acute diverticulitis. Will start empiric IV Zosyn , patient has multiple drug allergy. Continue IV fluids, start clear liquids, check C.Diff. - Advance Directives Does patient have a Living Will: No Does patient have a Durable POA for Healthcare: No - Code Status/Comfort Care Code Status Assessed: Yes Code Status: Full Code
[2018-09-11] MEDS ORDERED: KETOROLAC 30 MG/ML INJ IV PRN (02:57)
[2018-09-11] MEDS ORDERED: ONDANSETRON 4 MG/2 ML VIAL IV PRN (03:39)
[2018-09-11 04:15] LABS: Urine Appearance CLEAR; Urine Bilirubin NEGATIVE (NEG); Urine Blood NEGATIVE (NEG); Urine Color YELLOW; Urine Glucose NEGATIVE (NEG); Urine Protein NEGATIVE (NEG); Urine Specific Gravity 1.015 (1.005-1.030); Urine Urobilinogen 0.2 mg/dL (0.2-1.0)
[2018-09-11 04:41] LABS: Urine Bacteria <20 /HPF (<20); Urine Culture Reflex Order NOT NEEDED; Urine RBC <5 /HPF (NONE SEEN)
[2018-09-11] MEDS: NA CHLORIDE 0.9% 1,000 ML IV SCH ×3 (04:45→23:39)
[2018-09-11] MEDS ORDERED: PIPER/TAZO/NS 3.375gm 3.375 GM/100 ML BAG IVPB SCH (06:00)
[2018-09-11 06:21] LABS: Absolute Lymphocytes (CBC) 3.3 K/uL (0.7-4.9); Basophils % 0.5 % (0-1.3); Eosinophils % 1.6 % (0-4.4); Hematocrit 36.6 % (36.0-45.0); Lymphocytes % 32.8 % (15.3-44.8); MPV 7.9 fL (7.6-11.3); Monocytes % 5.4 % (3.3-12.3)
[2018-09-11] MEDS ORDERED: PIPERACIL/TAZO 3.375 GM VIAL IV ONE (06:27)
[2018-09-11 06:29] LABS: Potassium 3.7 mmol/L (3.5-5.1)
[2018-09-11] MEDS ORDERED: NA CHLORIDE 0.9% 100 ML IV ONE (06:30)
[2018-09-11] MEDS: TRAMADOL HCL 50 MG TAB PO PRN (06:56)
[2018-09-11 07:50] VITALS: BMI 32.8
[2018-09-11] MEDS ORDERED: POTASSIUM 25 MEQ EFFERV TAB PO ONE (09:00)
[2018-09-11] MEDS ORDERED: HYDROCODONE/APAP 10/325 TAB PO ONE (09:37)
--- NOTE | 2018-09-11 10:03 | RAD REPORT ---
EXAM DESCRIPTION: CT - Stone Protocol - 09/11/2018 2:36 am CLINICAL HISTORY: ABD PAIN COMPARISON: None. TECHNIQUE: CT ABDOMEN PELVIS WITHOUT IV CONTRAST on 09/10/2018 11:30 PM CDT This exam was performed according to our departmental dose-optimization program, which includes autom ated exposure control, adjustment of the mA and/or kV according to patient size and/or use of iterati ve reconstruction technique. FINDINGS: Lower lungs are clear. Abdomen: Liver is fatty in attenuation. There is no biliary dilatation. The pancreas and spleen are n ormal in appearance. The adrenal glands and kidneys are unremarkable. Abdominal aorta is normal in course and caliber without aneurysm. There is no free air. There is no r etroperitoneal adenopathy. Pelvis: There is mild left colonic diverticulosis. There is inflammation surrounding a diverticulum i n the distal descending colon. Urinary bladder is unremarkable. There is no free fluid. Uterus is nor mal in size. Appendix is normal. Skeleton: There are no acute osseous findings. No suspicious bony lesions. IMPRESSION: Distal descending colonic diverticulitis. Electronically signed by: Wil Nails MD 09/11/2018 1:20 AM CDT Due to temporary technical issues with the PACS/Fluency reporting system, reports are being signed by the in house radiologist as a courtesy to ensure prompt reporting. The interpreting radiologist is f carlylely responsible for the content of the report.
[2018-09-11] MEDS ORDERED: HYDROCODONE/APAP 5/325 MG TAB PO ONE (18:00)
[2018-09-11] MEDS: PIPER/TAZO/NS 3.375gm 3.375 GM/100 ML BAG IVPB SCH (18:42)
[2018-09-11] MEDS: DULOXETINE 30 MG CAP PO SCH (20:17)
[2018-09-11] MEDS ORDERED: OMEPRAZOLE MAGNESIUM 40 MG PO SCH (21:00)
[2018-09-11] MEDS ORDERED: HOME MED 1 EA UNK (Duloxetine Hcl [Cymbalta] 60 MG) PO SCH (21:00)
[2018-09-11] MEDS ORDERED: AMITRIPTYLINE 25 MG TAB PO SCH (21:00)
[2018-09-11] MEDS ORDERED: TRAZODONE 50 MG TABLET PO SCH (21:00)
[2018-09-12] MEDS: PIPER/TAZO/NS 3.375gm 3.375 GM/100 ML BAG IVPB SCH ×2 (00:57→09:00)
[2018-09-12] MEDS: TRAMADOL HCL 50 MG TAB PO PRN ×2 (05:18→13:50)
[2018-09-12 06:14] LABS: Absolute Lymphocytes (CBC) 3.6 K/uL (0.7-4.9); Basophils % 0.6 % (0-1.3); Eosinophils % 4.2 % (0-4.4); Hematocrit 37.8 % (36.0-45.0); Lymphocytes % 56.3 % (15.3-44.8); MPV 7.8 fL (7.6-11.3); Monocytes % 6.4 % (3.3-12.3)
[2018-09-12 06:23] LABS: Magnesium 2.1 mg/dL (1.8-2.4); Potassium 3.8 mmol/L (3.5-5.1)
[2018-09-12] MEDS ORDERED: PANTOPRAZOLE 40MG TABLET PO SCH (07:30)
[2018-09-12 08:54] LABS: Blood Morphology Comment NOT SEEN (NOT SEEN); Platelet Estimate ADEQ
[2018-09-12] MEDS ORDERED: POTASSIUM CL SA 10 MEQ TAB PO ONE (09:00)
[2018-09-12] MEDS: NA CHLORIDE 0.9% 1,000 ML IV SCH (09:19)
[2018-09-12] MEDS: DULOXETINE 30 MG CAP PO SCH (09:20)
[2018-09-12 09:31] VITALS: O2SAT 98
--- NOTE | 2018-09-12 11:04 | P.DS ---
Admission Date: 09/11/18 Discharge Date: 09/12/18 Disposition: ROUTINE DISCHARGE Discharge Condition: GOOD Reason for Admission: Diverticulitis - Problems (1) Diverticulitis large intestine Current Visit: Yes Status: Acute Qualifiers: Diverticulitis bleeding: with bleeding Diverticulitis complication: without perforation or abscess Qualified Code(s): K57.33 - Diverticulitis of large intestine without perforation or abscess with bleeding (2) Arnold-Chiari syndrome Current Visit: No Status: Acute (3) Simple partial seizures Onset Date: 08/18/15 Current Visit: No Status: Acute Brief History of Present Illness: Ms Jansen is a 53 years old woman with history of Arnold-chiari malformation, diverticulosis, gastroparesis, who start yesterday morning with left lower quadrant abdominal pain. The patient was constant, 8/10 of intensity, no radiated, associated with nausea and vomiting. She also has had diarrhea with some blood on it. She denied fever or chills. Lab work in ER shows leukocytosis 13.7K, CT abdo/pelvis consistent with distal descending colonic diverticulitis Hospital Course: Overall during the hospital stay patient remained stable Patient was initially admitted to the hospital for abdominal pain and was found to have diverticulitis of the large intestine. Patient was started on IV antibiotics here in the hospital. Patient was also started on clear liquid diet at that time. Patient after receiving antibiotics for 24 hr had marked improvement in her diverticulitis and had passed for bouts of stool and was feeling much better than before. At that time patient was advanced to a bland diet which she tolerated well. Patient at that time was then switched over to oral antibiotics and discharged home under stable condition. Patient was asked to follow up with GI doctor about 1-2 days post discharge to have a followup colonoscopy in about 6 weeks. Patient was able to tolerate her diet ambulate and had no complaints to offer agreed with the plan and thus was discharged home under stable condition. Vital Signs/Physical Exam: Temp Pulse Resp BP Pulse Ox 97.9 F 66 17 112/58 L 98 09/12/18 08:00 09/12/18 08:00 09/12/18 08:00 09/12/18 08:00 09/12/18 08:00 General: Alert, In no apparent distress HEENT: Atraumatic, PERRLA, EOMI Neck: Supple, JVD not distended Respiratory: Clear to auscultation bilaterally, Normal air movement Cardiovascular: Regular rate/rhythm, Normal S1 S2 Gastrointestinal: Normal bowel sounds, No tenderness Musculoskeletal: No tenderness Integumentary: No rashes Neurological: Normal speech, Normal tone, Normal affect Lymphatics: No axilla or inguinal lymphadenopathy Laboratory Data at Discharge: WBC 6.5 K/uL (4.3-10.9) D 09/12/18 05:41 Hgb 12.7 g/dL (12.0-15.0) 09/12/18 05:41 Hct 37.8 % (36.0-45.0) 09/12/18 05:41 Plt Count 291 K/uL (152-406) 09/12/18 05:41 Sodium 145 mmol/L (136-145) 09/12/18 05:41 Potassium 3.8 mmol/L (3.5-5.1) 09/12/18 05:41 BUN 7 mg/dL (7-18) 09/12/18 05:41 Creatinine 0.80 mg/dL (0.55-1.3) 09/12/18 05:41 Glucose 92 mg/dL (74-106) 09/12/18 05:41 Magnesium 2.1 mg/dL (1.8-2.4) 09/12/18 05:41 Total Bilirubin 0.4 mg/dL (0.2-1.0) 09/10/18 22:45 AST 13 U/L (15-37) L 09/10/18 22:45 ALT 16 U/L (12-78) 09/10/18 22:45 Alkaline Phosphatase 73 U/L (45-117) 09/10/18 22:45 Lipase 94 U/L (73-393) 09/10/18 22:45 Home Medications: Cholecalciferol (Vitamin D3) [Vitamin D3] 1 cap PO DAILY 08/17/15 Omeprazole Magnesium [Prilosec Otc] 40 mg PO BID 08/17/15 Trazodone [Desyrel*] 150 mg PO BEDTIME 08/17/15 Amitriptyline HCl 25 mg PO BEDTIME 01/30/17 Duloxetine HCl [Cymbalta] 60 mg PO BID 01/30/17 Loratadine [Claritin*] 10 mg PO DAILY 01/30/17 Magnesium Oxide [Magnesium] 400 mg PO DAILY 01/30/17 Potassium Gluconate [Potassium] 600 mg PO DAILY 01/30/17 Butalb/Acetaminophen/Caffeine [Fjjaqz-Gcadddwm-Xypn 50-300-40] 1 each PO DAILY 09/11/18 Calcium Carbonate [Calcium] 600 mg PO BID 09/11/18 Ospemifene [Osphena] 60 mg PO DAILY 09/11/18 Ranitidine [Zantac*] 150 mg PO BID 09/11/18 Ciprofloxacin HCl 500 mg PO BID #28 tablet 09/12/18 metroNIDAZOLE [Flagyl] 500 mg PO Q8H #42 tablet 09/12/18 New Medications: Ciprofloxacin HCl 500 mg PO BID #28 tablet metroNIDAZOLE [Flagyl] 500 mg PO Q8H #42 tablet Patient Discharge Instructions: Please f.u with GI in 1 to 2 week post discharge. New medication. Ciprofloxacin and Flagyl daily for 14 days. Colonscopy 6 weeks post discharge after f.u with GI Diet: Beckham Activity: Ad juanita Followup: Sid Jamison MD [ASSOCIATE-ACTIVE - CAN ADMIT] - 1 Week
[2018-09-12 12:38] VITALS: BP 119/74; TEMP 97.8
== END 2018-09-12 14:19 | disposition home or self-care (01) | DRG 392 ==
LOC: ER 22:11 → 4TH 09-11 03:05
PROVIDERS: ADMIT Internal Medicine; ATTEND Family Medicine
DX: K57.32 Diverticulitis of large intestine without perforation or abscess without bleeding (principal); G40.109 Localization-related (focal) (partial) symptomatic epilepsy and epileptic syndromes with simple partial seizures, not intractable, without status epilepticus; Q07.00 Arnold-Chiari syndrome without spina bifida or hydrocephalus; K31.84 Gastroparesis; Z88.2 Allergy status to sulfonamides; Z88.6 Allergy status to analgesic agent; Z91.013 Allergy to seafood
CPT/HCPCS: 36415; 74176; 76377; 80048; 80076; 81001; 83690; 83735; 85025; 87493; 96361; 96365; 96375; 99285; J0694; J1170; J1630; J2405; J2543; J3010; J7030

== ENCOUNTER 2022-06-14 15:39 | Emergency (ER) | payer OTHER ==
--- OUTSIDE RECORDS SUMMARY | 2022-06-14 15:44 | XMS REPORT | Continuity of Care Document ---
:1965 Author Organization [facility] t Address [address] [place] [address] [address] [place] [address] Care Team Providers Name Role Phone Maria L GARCIA, Daniel Calabrese Primary Care Physician [phone] Lester Miranda Attending Clinician Unavailable Koffi Roman MD Attending Clinician Lorenzo GARCIA, Jean-Claude Olivas Attending Clinician Hilda Bergman MA Attending Clinician Unavailable MILA DIAL Attending Clinician Unavailable RYLEE DELEON Attending Clinician Unavailable Nevaeh Silver Attending Clinician CHRISTINA TA M.D. Attending Clinician Unavailable LIZZETTE RESTREPO Attending Clinician Unavailable VISIT, NURSE JR Attending Clinician Unavailable NEVAEH SILVER Attending Clinician Unavailable SHEEBA MANZANO Attending Clinician Unavailable Kerline GARCIA, Patricia Redmond Attending Clinician [phone] Debbie Trammell Attending Clinician Unknown, Attending Attending Clinician Unavailable Doctor Unassigned, Mallard Attending Clinician Unavailable Sheeba Manzano Admitting Clinician Unavailable LIZZETTE RESTREPO Admitting Clinician Unavailable Payers Payer Name Policy Type Policy Number Effective Date Expiration Date S [place] Problems Condition Condition Condition Status Onset Resolution Last Treating Co mments Source Name Details Category Date Date Treatment Clinician Date Chiari Chiari Disease Active Methodi malformati malformati [address] on type I on type I 00:00: Hosp [facility] 00 l URINARY URINARY Diagnosis Active 2019-032020-02-28 Memoria TRACT TRACT 04-13 09:56:00 l INFECTION INFECTION 00:00: Herm luisa Active 00 02/12/2020 [facility] CSF leak CSF leak Disease Active Metho di 2-26 st 00:00: Hospita 00 l Meningitis Meningitis Disease Active 2017-03 M ethodi 2-14 st 00:00: Hospita 00 l Bilateral Bilateral Disease Active 2017-03 Met hodi occipital occipital 03-27 st neuralgia neuralgia 00:00: Hosp omar 00 l Carpal Carpal Disease Active 2017-03 Methodi tunnel tunnel 1 syndrome syndrome 00:00: Hospit a of left of left 00 l wrist wrist Chronic Chronic Disease Active 2017-03 Methodi midline midline 1 low back low back 00:00: Hospit a pain pain 00 l without without sciatica sciatica Cervical Cervical Disease Active Metho di radiculopa radiculopa 8-09 st thy thy 00:00: Hospita 00 l 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 709 st s with s with 00:00: Hospita radiculopa radiculopa 00 l thy thy Post Post Disease Active Methodi traumatic traumatic 6 st stress stress 00:00: Hospita disorder disorder 00 l (PTSD) (PTSD) Bipolar II Bipolar II Disease Active M ethodi disorder, disorder, 08-25 most most 00:00: Hospita recent recent 00 l episode episode major major depressive depressive History of History of Problem Resolve [place] Diabetes Diabetes d Physic i ans History of History of Problem Resolve [facility] Gallbladde Gallbladde d Ph ysici r disease r disease ans History of History of Problem Resolve [facility] Staph Staph d Physici infection infection ans No known No known Disease Baylo r active active College problems problems of Medicin e Anxiety Anxiety Problem Resolve 2020-11-18 M emoria (finding) (finding) d 21:19:08 l Resolved [place] Problem 11/18/2020 [facility] Depressive Depressiv Problem Resolve 2020-11-18 Memoria disorder e disorder d 21:19:08 l (disorder) (disorder) He rmann Resolved Problem 11/18/2020 [facility] Morbid Morbid Problem Active 2020-11-18 Finesse carolyn obesity obesity 21:19:08 l (disorder) (disorder) He rmann Active Problem 11/18/2020 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 21:19:08 l (disorder) (disorder) He rmann Active Problem 11/18/2020 [facility] Migraine Migraine Disease Active Metho di headache headache st Hospita l Hip pain, Hip pain, Problem Active [facility] left left Physici ans Right hip Right hip Problem Active UT pain pain Physici ans Greater Greater Problem Active UT trochanter trochanter Ph ysici ic ic ans bursitis bursitis of left of left hip hip Greater Greater Problem Active [facility] trochanter trochanter Ph ysici ic ic ans bursitis bursitis of right of right hip hip History of History of Problem Resolve [facility] Asthma Asthma d Physici ans History of History of Problem Resolve [facility] Back pain Back pain d Phys ici ans History of History of Problem Resolve [facility] Depression Depression d Ph ysici ans Allergies, Adverse Reactions, Alerts Allergy Allergy Status Severity Reaction(s) Onset Inactive Treating Comm ents Source Name Type Date Date Clinician iodine DA Active SV 2020-0 [facility] 9-25 [place] 00:00: d 00 [facility] sulfamet DA Active SV 2020-0 [facility] hoxazole 12-19 [place] 00:00: d 00 [facility] trimetho DA Active SV 2020-0 [facility] prim - [place] 00:00: d 00 [facility] ciproflo DA Active SV 2020-0 [facility] xacin - [place] 00:00: d 00 [facility] adhesive DA Active U 2020-0 [facility] -25 [place] 00:00: d 00 [facility] proprano DA Active U 2020-0 [facility] lol - [place] 00:00: d 00 [facility] iodine DA Active SV ANAPHYLAXIS 2020-0 [facility] - [place] 00:00: d 00 [facility] sulfamet DA Active SV ANAPHYLAXIS 0 [facility] hoxazole 12-19 [place] 00:00: d 00 [facility] trimetho DA Active SV ANAPHYLAXIS 2019-0 [facility] prim 12-19 [place] 00:00: d 00 [facility] ciproflo DA Active SV ABDOM 2019- [facility] xacin PAIN/CRAMPS 12-19 [place] an 00:00: d 00 [facility] adhesive DA Active U RASH 2019- [facility] 12-19 [place] 00:00: d 00 [facility] proprano DA Active U SHORTNESS OF HC A lol BREATH 12-19 [place] 00:00: d 00 [facility] Adhesive Propensi Active 2017-03 rash Method i Tape-Madonna ty to 05-14 st icones adverse 00:00: Hospita reaction 00 l s to drug Sulfamet Propensi Active Anaphylaxis 2017- M ethodi hoxazole ty to 11-01 st -Trimeth adverse 00:00: Hospita oprim reaction 00 l s to drug Proprano Propensi Active GI Method i lol ty to Intolerance 11-01 st adverse 00:00: Hospita reaction 00 l s to drug Proprano Propensi Active 2016-03 Lasha lol ty to 04-01 [place] adverse 00:00: of reaction 00 Medicin s to e drug Aspirin Propensi Active Anaphylaxis Ba ylor ty to 08-25 [place] adverse 00:00: of reaction 00 Medicin s to e drug Iodine Propensi Active Anaphylaxis Dillon ivan ty to 08-25 [place] adverse 00:00: of reaction 00 Medicin s to e drug Shellfis Propensi Active Anaphylaxis B aylor h-Derive ty to 08-25 [place] d adverse 00:00: of Products reaction 00 Medici n s to e drug Aspirin Propensi Active Anaphylaxis Un fabrice ty to 08-25 ity of adverse 00:00: [place] reaction 00 [facility] Ciproflo Propensi Active Anaphylaxis 2015- U nivers xacin ty to 08-25 ity of adverse 00:00: [place] reaction 00 Medical s [facility] Fish Propensi Active Shortness of shellfish Univers Containi ty to Breath 08-25 ity of ng adverse 00:00: [place] Products reaction 00 Medica l s Branch Hydrocod Propensi Active Anaphylaxis U nivers one-Acet ty to 08-25 ity of aminophe adverse 00:00: [place] n reaction 00 Medical s Branch Iodine Propensi Active Anaphylaxis 0 Uni vers ty to 08-25 ity of adverse 00:00: [place] reaction 00 [facility] s [facility] Shellfis Propensi Active Anaphylaxis 2015-0 U nivers h ty to 08-25 ity of Derived adverse 00:00: [place] reaction 00 Medical [facility] Ciproflo Propensi Active Anaphylaxis 2015-0 M ethodi xacin ty to 08-25 st adverse 00:00: Hospita reaction 00 l s to drug Shellfis Propensi Active Anaphylaxis 0 M ethodi h ty to 08-25 st Derived adverse 00:00: Hospita reaction 00 l s to drug shellfis shellfis Active Memori a h h l Lev ciproflo ciproflo Active Memori a xacin xacin l Lev Macrobid Macrobid Active Memori a l [place] Bactrim Bactrim Active Memoria l [place] Family History Family Member Diagnosis Comments Start Date Stop Date Source Half-brother [facility] ge of Medicine Half-sister [facility] e of Medicine Maternal aunt [facility] ege of Medicine Maternal uncle [facility] lege of Medicine Paternal aunt [facility] ege of Medicine Natural brother Depression [facility] Natural brother Post-traumatic stress [facility] Natural father [facility] Natural [facility] Natural [facility] Natural father Oste[facility] Maternal Diabetes [facility] Maternal Heart attack [facility] Maternal Dementia [facility] Maternal Depression [facility] Maternal Diabetes [facility] Maternal Osteoarthritis [facility] Natural mother [facility] Natural mother [facility] Paternal Heart attack [facility] Paternal Osteoarthritis [facility] Paternal [facility] Paternal Colon polyps [facility] Paternal Osteoarthritis [facility] Paternal Stroke [facility] Natural sister [facility] Social History Social Habit Start Date Stop Date Quantity Comments Source History [facility] ge Alcohol Std Drinks of Med icine History [facility] ge Alcohol Binge of Medicine Sex [facility] llege of Medicine Exposure to Not sure [facility] e SARS-CoV-2 (event) of Med icine Alcohol intake 2022-05-13 2022-05-13 Ex-drinker [facility] 00:00:00 00:00:00 (finding) Hospital Cigarettes smoked 2022-02-02 2022-02-[address] current (pack per 00:00:00 00:00:00 Hospita l day) - Reported Cigarette 2022-02-02 2022-02-02 [facility] pack-years 00:00:00 00:00:00 Hospital Tobacco use and 2022-02-02 2022-02-02 Smokeless tobacco [facility] exposure 00:00:00 00:00:00 non-user Hospital Tobacco Comment 2022-02-02 2022-02-02 Smoked 3 [facility] 00:00:00 00:00:00 cigarettes a day Hospital History SDNC 2019-05-30 2019-05-30 1 [facility] Jaylin cristobal Alcohol Frequency 00:00:00 00:00:[address] [facility] History of tobacco 1985-07-25 2011 Current smoker [facility] use 00:00:00 00:00:00 Hospital Smoking Status Start Date Stop Date Source Social History 2020-10-05 13:33:13 2020-10-05 13:33:13 [facility] Never smoker [facility] o f Medicine Medications Ordered Filled Start Stop Current Ordering Indication Dosage Frequency Signature Comments Components Source Medication Medication Date Date Medication? Clinician (SIG) Name Name amol 2022- No [id number] 200U Methodi mtoxinA 05-13 st (BOTOX) 14:30: 14:17 Hospita injection 00 :00 l 200 Units omeprazole Yes TAKE ONE Met hodi (PriLOSEC) 2-[address] 40 MG 00:00: MOUTH Hospita capsule 00 TWICE A l DAY CALCIUM 2021-03 Yes 1{tbl} Q.5D Take 1 Method i CARBONATE-V 2-[address] ITAMIN D3 15:32: mouth 2 Hospi ta ORAL 05 (two) l times a day. potassium 2021-03 Yes 1{tbl} QD Take 1 Meth dali 99 mg 2-[address] tablet 15:32: mouth Hospita 05 daily. 550 l mg daily linaCLOtide 2021-03 Yes 72ug Take 72 Met hodi (LINZESS) 2-[address] 72 mcg 15:32: mouth as Hospita capsule 05 needed. l metFORMIN 2021-03 Yes 500mg Q.5D Take 500 Met hodi (GLUCOPHAGE 2-[address] ) 500 mg 15:32: mouth 2 Hospit a tablet 05 (two) l times a day with meals. metoclopram 2021-03 Yes 10mg Q.5D Take 10 mg Methodi genny 2-[address] (REGLAN) 10 15:32: (two) Hospi ta MG tablet 05 times a l day. amitriptyli 2021-03 Yes Method i ne (ELAVIL) -06 st 25 MG 00:00: Hospita tablet 00 l escitalopra 2021-03 Yes Method i m (LEXAPRO) 04-17 st 10 MG 00:00: Hospita tablet 00 l hydrOXYzine 2021-03- No Metho di (ATARAX) 50 04-17-17 st MG tablet 00:00: 00:00 Hospita 00 :00 l onabotulinu 2021-03- No [id number] 200U Methodi mtoxinA 04-1318 st (BOTOX) 19:00: 18:53 Hospita injection 00 :00 l 200 Units traZODone 2021-03 Yes 150mg QD Take 1 Metho di (DESYREL) [address] 150 MG 00:00: (150 mg Hospita tablet 00 total) by l mouth nightly. amitriptyli 2021-03- No 50mg QD Take 1 Met hodi ne (ELAVIL) 04-13- tablet (50 s t 50 MG 00:00: 05:59 mg total) Hospit a tablet 00 :00 by mouth l nightly. traMADoL 2021-03- No Methodi (ULTRAM) 50 04-09-17 st mg tablet 00:00: 00:00 Hospita 00 :00 l NON 2021-03- No Methodi FORMULARY 04-04 st 14:10: 00:00 Hospita 09 :00 l SUMAtriptan Yes Use one Met hodi (IMITREX) 11-[address] 20 00:00: one Hospita mg/actuatio 00 nostril at l n nasal migraine spray onset, may repeat once in 2 hrs if needed. Max 2/24 hrs. onabotulinu 2021- No [id number] 200U Methodi mtoxinA 11-12 st (BOTOX) 14:00: 13:47 Hospita injection 00 :00 l 200 Units SUMAtriptan 2021- No 1{spray Q2H 1 spray Methodi (IMITREX) 11-12 } into each st 00:00: 00:00 nostril Hospita mg/actuatio 00 :00 every 2 l n nasal (two) spray hours as needed for migraine. omeprazole 2022- No TAKE ONE Me thodi (PriLOSEC) 10-14- CAPSULE BY st 40 MG 00:00: 00:00 MOUTH Hospita capsule 00 :00 TWICE A l DAY omeprazole 2021- No TAKE ONE Me thodi (PriLOSEC) 10-[address] 40 MG 00:00: 00:00 MOUTH Hospita capsule 00 :00 TWICE A l DAY onabotulinu 2021- No [id number] 200U Methodi mtoxinA 08-13 st (BOTOX) 13:45: 13:38 Hospita injection 00 :00 l 200 Units DULoxetine Yes 60mg Q.5D Take 1 Metho di (CYMBALTA) 5-[address] 60 MG 00:00: (60 mg Hospita capsule 00 total) by l mouth 2 (two) times a day. traZODone 2021- No 150mg QD Take 1 Meth dali (DESYREL) 5-20 -[address] 150 MG 00:00: 00:00 (150 mg Hospita tablet 00 :00 total) by l mouth nightly. amitriptyli 2021- No 50mg QD Take 1 Met hodi ne (ELAVIL) 5-20 -18 tablet (50 s t 50 MG 00:00: 00:00 mg total) Hospit a tablet 00 :00 by mouth l nightly. SUMAtriptan 2021- No Inject 6 M ethodi succinate 6 5-20 08-[address] mg/0.5 mL 00:00: 00:00 headache Hos tapan pen 00 :00 onset, may l injector repeat once in 2 hours if needed. omeprazole 2021- No TAKE ONE Me thodi (PriLOSEC) 4-26 07-[address] 40 MG 00:00: 00:00 MOUTH Hospita capsule 00 :00 TWICE A l DAY traZODone 2021- No TAKE ONE Met hodi (DESYREL) 4-08 05-[address] 150 MG 00:00: 00:00 MOUTH Hospita tablet 00 :00 EVERY l NIGHT AT BEDTIME amitriptyli 2021- No Metho di ne (ELAVIL) 1- 05-20 st 25 MG 00:00: 00:00 Hospita tablet 00 :00 l ondansetron 2020-03 Yes TAKE ONE Me thodi (ZOFRAN) 4 2-[address] MG tablet 00:00: MOUTH Hospita 00 EVERY 8 l HOURS NEEDED traMADoL 2020-03- No Methodi (ULTRAM) 50 2-08 08-19 st mg tablet 00:00: 00:00 Hospita 00 :00 l Motegrity 2 2020-03 Yes Method i mg tablet 1-29 st 00:00: Hospita 00 l methocarbam 2020-03 Yes Method i oL 1-20 st (ROBAXIN) 00:00: Hospita 500 MG 00 l tablet traZODone 2021- No TAKE ONE Met hodi (DESYREL) 9-14 04-[address] 150 MG 00:00: 00:00 MOUTH Hospita tablet 00 :00 EVERY l NIGHT AT BEDTIME DULoxetine 2021- No 60mg Q.5D Take 1 Meth dali (CYMBALTA) 8-24 05-[address] 60 MG 00:00: 00:00 (60 mg Hospita capsule 00 :00 total) by l mouth 2 (two) times a day. Fosfomycin Yes = 1 Pack, Me moria 33.3 MG/ML 7-12 PO, Q72H, l Oral 13:53: # 3 ea, 0 Lev Suspension 00 Refill(s), [Monurol] Pharmacy: [facility] 149, 144.78, cm, 04/20/20 8:21:00 [employer], Height, 75, kg, 04/20/20 8:21:00 [employer], Weight Fosfomycin 0 Yes = 1 Pack, Me moria 33.3 MG/ML 7-12 PO, Q72H, l Oral 13:53: # 3 ea, 0 Lev Suspension 00 Refill(s), [Monurol] Pharmacy: [facility] 149, 144.78, cm, 04/20/20 8:21:00 FAMILY [employer], Height, 75, kg, 04/20/20 8:21:00 FAMILY [employer], Weight Fosfomycin 0 Yes = 1 Pack, Me moria 33.3 MG/ML 7-12 PO, Q72H, l Oral 13:53: # 3 ea, 0 Lev Suspension 00 Refill(s), [Monurol] Pharmacy: [facility] 149, 144.78, cm, 04/20/20 8:21:00 FAM[employer], Height, 75, kg, 04/20/20 8:21:00 FAMILY [employer], Weight Fosfomycin 0 Yes = 1 Pack, Me moria 33.3 MG/ML 7-12 PO, Q72H, l Oral 13:53: # 3 ea, 0 [place] Suspension 00 Refill(s), [Monurol] Pharmacy: [facility] 149, 144.78, cm, 04/20/20 8:21:00 [employer], Height, 75, kg, 04/20/20 8:21:00 [employer], Weight Fosfomycin 2020-0 Yes = 1 Pack, Me moria 33.3 MG/ML 7-12 PO, Q72H, l Oral 13:53: # 3 ea, 0 [place] Suspension 00 Refill(s), [Monurol] Pharmacy: [facility] 149, 144.78, cm, 04/20/20 8:21:00 [employer], Height, 75, kg, 04/20/20 8:21:00 [employer], Weight Fosfomycin 2020-0 Yes = 1 Pack, Me moria 33.3 MG/ML 7-12 PO, Q72H, l Oral 13:53: # 3 ea, 0 [place] Suspension 00 Refill(s), [Monurol] Pharmacy: [facility] 149, 144.78, cm, 04/20/20 8:21:00 [employer], Height, 75, kg, 04/20/20 8:21:00 [employer], Weight Metformin 2020-0 Yes PO, 0 Memoria 7-12 Refill(s) l 13:30: [place] 00 Metformin 2020-0 Yes PO, 0 Memoria 7-12 Refill(s) l 13:30: [place] 00 Metformin 2020-0 Yes PO, 0 Memoria 7-12 Refill(s) l 13:30: [place] 00 Metformin 2020-0 Yes PO, 0 Memoria 7-12 Refill(s) l 13:30: [place] Metformin 2020-0 Yes PO, 0 Memoria 7-12 Refill(s) l 13:30: [place] 00 Metformin 2020-0 Yes PO, 0 Memoria 7-12 Refill(s) l 13:30: [place] 00 omeprazole 2020-0 2021- No 40mg Q.5D Take 1 Meth dali (PriLOSEC) 5-07 04-[address] 40 MG 00:00: 00:00 (40 mg Hospita capsule 00 :00 total) by l mouth 2 (two) times a day. montelukast 2019-03 Yes Method i (SINGULAIR) 1-13 st 10 mg 00:00: Hospita tablet 00 l Ventolin 2019-03- No Methodi HFA 90 0-31 11-09 st mcg/actuati 00:00: 00:00 Hospi ta on inhaler 00 :00 l Multiple 2019-03 Yes Take by [facility] Vitamin 0-15 mouth. [place] (MULTI-AJ 15:19: of MIN DAILY 19 Medicin OR) e pregabalin 2019-03 Yes 150mg Take 150 Ba ylor (LYRICA) 0-15 mg by [place] 150 MG 15:19: mouth of capsule 19 daily. Medicin e Erythromyci 2019-03 Yes 150mg Take 150 B aylor n Base 0-15 mg by [place] (ERYTHROMYC 15:19: mouth. of IN OR) 19 Medicin e Calcium 2019-03 Yes 600U Take 600 Lasha 600-200 0-15 Units by [place] MG-UNIT 15:19: mouth of TABS 19 daily. Medicin e Cholecalcif 2019-03 Yes 800U Take 800 Ba ylor mathew 0-15 Units by [place] (VITAMIN 15:19: mouth of D3) 20 MCG 19 daily. Medicin (800 UNIT) e TABS Diclofenac 2019-03 Yes 50mg Take 50 mg B aylor Potassium 0-15 by mouth Colleg e 50 MG TABS 15:19: daily. of 19 Medicin e trazodone 2019-03 Yes 150mg Take 150 Dillon ivan (DESYREL) 0-15 mg by [place] 150 MG 15:19: mouth of tablet 19 daily. Medicin e duloxetine 2019-03 Yes 60mg Take 60 mg B aylor (CYMBALTA) 0-15 by mouth Colle ge 60 MG 15:19: daily. of capsule 19 Medicin e OMEPRAZOLE 2019-03 Yes 45mg Take 45 mg B aylor OR 0-15 by mouth [place] 15:19: two times of 19 daily. Medicin e Magnesium 2019-03 Yes 250mg Take 250 Dillon ivan 250 MG TABS 0-15 mg by [place] 15:19: mouth two of 19 times Medicin daily. e amitriptyli 2019-03 Yes 25mg Take 25 mg Lasha ne (ELAVIL) 0-15 by mouth Chente ege 50 MG 15:18: daily. of tablet 44 Medicin e montelukast 2019-03- No 1{tbl} Take 1 Tab [facility] (SINGULAIR) 0-13 10-16 by mouth Col lege 10 MG 00:00: 04:59 daily. of tablet 00 :00 Medicin e ranitidine, 2019- Yes 150mg Take 150 B aylor ZANTAC, 150 3-05 mg by [place] MG tablet 16:43: mouth two of 49 times Medicin daily. e amitriptyli Yes 50mg Take 50 mg Lasha ne (ELAVIL) 3-05 by mouth Chente ege 50 MG 16:43: daily. of tablet 49 Medicin e Magnesium 2019- Yes 250mg Take 250 Dillon ivan 250 MG TABS 3-05 mg by [place] 16:43: mouth two of 49 times Medicin daily. e Multiple 2019- Yes Take by [facility] Vitamin 3-05 mouth. [place] (MULTI-AJ 16:43: of MIN DAILY 49 Medicin OR) e pregabalin 2020-0 Yes 150mg Take 150 Ba ylor (LYRICA) 3-05 mg by College 150 MG 16:43: mouth of capsule 49 daily. Medicin e Erythromyci 2020-0 Yes 150mg Take 150 B aylor n Base 3-05 mg by College (ERYTHROMYC 16:43: mouth. of IN OR) 49 Medicin e ranitidine, 2020-0 Yes 150mg Take 150 B aylor ZANTAC, 150 3-05 mg by [place] MG tablet 16:43: mouth two of 49 times Medicin daily. e Calcium 2020-0 Yes 600U Take 600 Lasha 600-200 3-05 Units by [place] MG-UNIT 16:43: mouth of TABS 41 daily. Medicin e Cholecalcif 2020-0 Yes 800U Take 800 Ba ylor mathew 3-05 Units by [place] (VITAMIN 16:43: mouth of D3) 20 MCG 41 daily. Medicin (800 UNIT) e TABS Diclofenac 2020-0 Yes 50mg Take 50 mg B aylor Potassium 3-05 by mouth Colleg e 50 MG TABS 16:43: daily. of 41 Medicin e trazodone 2020-0 Yes 150mg Take 150 Dillon ivan (DESYREL) 3-05 mg by [place] 150 MG 16:43: mouth of tablet 41 daily. Medicin e duloxetine 2020-0 Yes 60mg Take 60 mg B aylor (CYMBALTA) 3-05 by mouth Colle ge 60 MG 16:43: daily. of capsule 41 Medicin e OMEPRAZOLE 2020-0 Yes 45mg Take 45 mg B aylor OR 3-05 by mouth [place] 16:43: two times of 41 daily. Medicin e loratadine 2020-0 Yes 10mg Take 10 mg B aylor (CLARITIN) 3-05 by mouth Colle ge 10 MG 16:43: daily. of tablet 41 Medicin e loratadine 2020-0 Yes 10mg Take 10 mg B a[place]or (CLARITIN) 3-05 by mouth Colle ge 10 MG 16:43: daily. of tablet 41 Medicin e bromphenira 2020-0 Yes [id number] 5mL Take 5 mL Univers mine-pseudo 2-10 by mouth 4 it y of ephedrine-D 00:00: (four) Master Barnett (BROMFED 00 times Medical DM) 2-30-10 daily as Bran ch mg/5 mL needed for syrup Congestion /Allergies or Cough. CALCIUM Yes 1{tbl} Take 1 Univer s CARBONATE-V 7-07 tablet by ity of ITAMIN D3 01:15: mouth. [place] ORAL [address] [place] [address] CALCIUM 2017-0 Yes 1{tbl} Take 1 Univer s CARBONATE-V 7-07 tablet by ity of ITAMIN D3 01:15: mouth. [address] indomethaci Yes Univer s n 25 mg 4-05 ity of capsule 00:00: [place] [facility] ospemifene Yes Univers (OSPHENA) 4-05 ity of 60 mg 00:00: [facility] 00 [facility] indomethaci Yes Univer s n 25 mg 4-05 ity of capsule 00:00: [place] [facility] ospemifene Yes Univers (OSPHENA) 4-05 ity of 60 mg 00:00: [facility] 00 [facility] traMADOL 50 Yes Univer s mg tablet 4-02 ity of 00:00: [place] [facility] amitriptyli Yes Univer s ne 25 mg 4-02 ity of tablet 00:00: [place] [facility] traMADOL 50 Yes Univer s mg tablet 4-02 ity of 00:00: [facility] amitriptyli Yes Univer s ne 25 mg 4-02 ity of tablet 00:00: [place] [facility] traZODone Yes Univers 150 mg 3-28 ity of tablet 00:00: [facility] traZODone Yes Univers 150 mg 3-28 ity of tablet 00:00: [place] [facility] gabapentin Yes Univers 600 mg 3-19 ity of tablet 00:00: [place] [facility] gabapentin Yes Univers 600 mg 3-19 ity of tablet 00:00: [place] [facility] DULoxetine Yes Univers 60 mg 2-08 ity of capsule 00:00: [place] [facility] DULoxetine Yes Univers 60 mg 2-08 ity of capsule 00:00: [place] [facility] topiramate 0 Yes Univers 50 mg 1-29 ity of tablet 00:00: [place] 00 [facility] topiramate 2018-0 Yes Univers 50 mg 1- ity of tablet 00:00: [address] Branch magnesium 2017-1 Yes Take by Metho di oxide 1-[address] (MAG-OX) 00:00: Hospita 400 mg 00 l (241.3 mg magnesium) tablet Potassium Potassium Yes [facility] Chloride Chloride Physici POWD POWD ans M-Vit TABS M-Vit TABS Yes [facility] Physici ans Magnesium Magnesium Yes UT Citrate Citrate Physici TABS TABS ans Motegrity 2 Motegrity 2 Yes U T MG Oral MG Oral Physici Tablet Tablet ans Calcium Calcium Yes UT Citrate Citrate Physici CAPS CAPS ans Vitamin D Vitamin D Yes UT TABS TABS Physici ans Baclofen 10 Baclofen 10 Yes U T MG Oral MG Oral Physici Tablet Tablet ans DULoxetine DULoxetine Yes UT HCl - 30 MG HCl - 30 MG P hysici Oral Oral ans Capsule Capsule Delayed Delayed Release Release Particles Particles Omeprazole Omeprazole Yes UT 40 MG Oral 40 MG Oral Phy sici Capsule Capsule ans Delayed Delayed Release Release PriLOSEC PriLOSEC Yes UT OTC 20 MG OTC 20 MG Physi ci Oral Tablet Oral Tablet a ns Delayed Delayed Release Release Glucosamine Glucosamine Yes U T Chondroitin Chondroitin P hysici Complx CAPS Complx CAPS a ns Tumersaid Tumersaid Yes UT Oral Tablet Oral Tablet P hysici ans metFORMIN metFORMIN Yes UT HCl - 500 HCl - 500 Physi ci MG Oral MG Oral ans Tablet Tablet Singulair Singulair Yes UT 10 MG Oral 10 MG Oral Phy sici Tablet Tablet ans traZODone traZODone Yes UT HCl - 100 HCl - 100 Physi ci MG Oral MG Oral ans Tablet Tablet Amitriptyli Amitriptyli Yes U T ne HCl - 50 ne HCl - 50 P hysici MG Oral MG Oral ans Tablet Tablet Immunizations Ordered Immunization Filled Immunization Date Status Commen ts Source Name Name ALAYNA KIMBROUGH 2020-12-26 Completed [facility] 2020-[facility] Completed Methodis t MRNA VACCINATION 00:00:00 [facility] COVID19 2020-04-30 Completed Methodis t MRNA [facility]ACCIN[facility] FLUCELVAX QUAD 2019-12-[address] [facility] FLUZONE QUAD 2018-12-20 Completed [facility] 00:00:00 Hospital Vital Signs Vital Name Observation Time Observation Value Comments Source Systolic blood 2019-05-30 16:12:00 122 mm[Hg] [facility] pressure Medicine Diastolic blood 2019-05-30 16:12:00 83 mm[Hg] [facility] pressure Medicine Heart rate 2019-05-30 16:12:00 96 /min [facility] ollege of Medicine Body temperature 2019-05-30 16:12:00 36.83 Rachel [facility] Respiratory rate 2019-05-30 16:12:00 16 /min [facility] Body height 2019-05-30 16:12:00 144.8 cm [facility] ol[facility] of [facility] Body weight 2019-05-30 16:12:00 74.208 kg [facility] of Medicine BMI 2019-05-30 16:12:00 35.40 kg/m2 [facility] of [facility] Oxygen saturation in 2019-05-30 16:12:00 99 /min [facility] of Arterial blood by Medicine Pulse oximetry Systolic blood 2019-05-30 16:12:00 122 mm[Hg] [facility] Medicine Diastolic blood 2019-05-30 16:12:00 83 mm[Hg] [facility] Medicine Heart rate 2019-05-30 16:12:00 96 /min [facility] of Medicine Body temperature 2019-05-30 16:12:00 36.83 Rachel [facility] Respiratory rate 2019-05-30 16:12:00 16 /min [facility] Body height 2019-05-30 16:12:00 144.8 cm [facility] Body weight 2019-05-30 16:12:00 74.208 kg [facility] of Medicine BMI 2019-05-30 16:12:00 35.40 kg/m2 [facility] of Medicine Oxygen saturation in 2019-05-30 16:12:00 99 /min [facility] of Arterial blood by Medicine Pulse oximetry Systolic blood 2019-05-07 01:51:00 114 mm[Hg] Univer sity of [facility] Diastolic blood 2019-05-07 01:51:00 70 mm[Hg] Unive rsity of [facility] Heart rate 2019-05-07 01:51:00 80 /min [facility] Body temperature 2019-05-07 01:51:00 36.94 Rachel Univ ersity [facility] Respiratory rate 2019-05-07 01:51:00 17 /min Univ ersity of [facility] Body height 2019-05-07 01:51:00 144.8 cm [facility]i [facility] Body weight 2019-05-07 01:51:00 70.308 kg Universi ty of [facility] Branch BMI 2019-05-07 01:51:00 33.54 kg/m2 [facility] ty [facility] Oxygen saturation in 2019-05-07 01:51:00 97 /min University of Arterial blood by [facility] Pulse oximetry Branch Systolic blood 2019-05-07 01:51:00 114 mm[Hg] Univer sity of pressure [facility] Diastolic blood 2019-05-07 01:51:00 70 mm[Hg] Unive rsity of pressure [facility] Heart rate 2019-05-07 01:51:00 80 /min [facility]i ty of [facility] Body temperature 2019-05-07 01:51:00 36.94 Rachel Univ ersity [facility] Respiratory rate 2019-05-07 01:51:00 17 /min Univ ersity of [facility] Body height 2019-05-07 01:51:00 144.8 cm [facility] Body weight 2019-05-07 01:51:00 70.308 kg [facility] BMI 2019-05-07 01:51:00 33.54 kg/m2 [facility]i ty of [facility] Oxygen saturation in 2019-05-07 01:51:00 97 /min University of Arterial blood by [facility] Pulse oximetry Branch Systolic blood 2022-05-13 14:06:00 119 mm[Hg] [facility] Di[facility] blood 2022-05-13 14:06:00 81 mm[Hg] [facility] pressure Heart rate 2022-05-13 14:06:00 81 /min [facility] Respiratory rate 2022-05-13 14:06:00 16 /min [facility] Body temperature 2022-03-16 21:30:00 36.39 Rachel [facility] Body weight 2022-03-16 21:30:[address] [facility] BMI 2022-03-16 21:30:00 31.29 kg/m2 [facility] Body height 2022-02-02 19:05:[address] [facility] Body height 2020-07-24 10:42:00 57 [in_us] [facility] Weight 2020-07-24 10:42:00 165 [lb_av] [facility] Body mass index 2020-07-24 10:42:00 35.71 kg/m2 [facility] (BMI) [Ratio] Height 2020-04-20 14:21:00 144.78 cm [facility] Weight 2020-04-20 14:21:00 [facility] BMI Calculated 2020-04-20 14:21:00 Jose D [facility] Height 2020-02-28 19:48:00 144.78 cm [facility] Weight 2020-02-28 19:48:00 [facility] BMI Calculated 2020-02-28 19:48:00 [facility] Systolic blood 2020-01-09 14:28:00 114 mm[Hg] [facility] pressure Medicine Diastolic blood 2020-01-09 14:28:00 75 mm[Hg] [facility] pressure Medicine Heart rate 2020-01-09 14:28:00 102 /min [facility] Body height 2020-01-09 14:28:00 145.7 cm [facility] Body weight 2020-01-09 14:28:00 77.474 kg [facility] BMI 2020-01-09 14:28:00 36.50 kg/m2 [facility] Body temperature 2019-05-30 16:12:00 36.83 Rachel [facility] Respiratory rate 2019-05-30 16:12:00 16 /min [facility] Oxygen saturation in 2019-05-30 16:12:00 99 /min [facility] Arterial blood by [facility] Pulse oximetry Procedures Procedure Date / Time Performing Clinician Source Performed BOTULINUM TOXIN INJECTION 2022-05-13 14:18:[address] [facility] IN COLPOSCOPY CERVIX VAG 2022-03-16 23:34:43 Jean-Claude Ventura [facility] ELTRD CONIZATION CERVIX SURGICAL PATHOLOGY REQUEST 2022-03-16 14:59:00 Jean-Claude Ventura [facility] BOTULINUM TOXIN INJECTION 2022-02-11 18:54:[address] [facility] BOTULINUM TOXIN INJECTION 2021-11-12 13:47:58 [facility] 2021-08-13 13:38:[address] [facility] Dilation of female urethra 2020-02-28 20:50:00 [facility] including suppository and/or instillation; initial DEXA BONE DENSITY 2 SITES 2020-01-09 16:58:46 Alfreda [facility] COMPREHENSIVE METABOLIC 2019-05-30 17:47:00 sergio [facility] C-REACTIVE PROTEIN 2019-05-30 17:47:00 Kerline [facility] Co llege [facility] RHEUMATOID FACTOR 2019-05-30 17:47:00 simin [facility] Col lege [facility] CBC W/AUTO DIFF WITH 2019-05-30 17:47:00 [facility] PLATELETS [facility] VITAMIN D 25 HYDROXY 2019-05-30 17:47:00 [facility] HLA-B27 ANTIGEN 2019-05-30 17:47:00 simin [facility] Colle ge [facility] CCP AB (IGG/IGA) 2019-05-30 17:47:00 simin [facility] Chente ege [facility] ASSIGNMENT OF BENEFITS 2019-05-07 01:25:00 Doctor Unassigned, [facility] History of Cholecyst[facility] Gallbladder operation [facility] Laminectomy [facility] Tonsillectomy [facility] Plan of Care Planned Activity Planned Date Details Comments Source Future Scheduled 2022-05-20 Pneumococcal [facility] Test 17:25:01 Vaccine: Pediatrics Hospital (0 to 5 Years) and At-Risk Patients (6 to 64 Years) (1 - PCV) [code = Pneumococcal Vaccine: Pediatrics (0 to 5 Years) and At-Risk Patients (6 to 64 Years) (1 - PCV)] Future Scheduled 2022-05-20 Hepatitis C [facility] Test 17:25:01 screening Hospital (procedure) [code = 658710706] Future Scheduled 2022-05-20 Screening for [facility] Test 17:25:01 malignant neoplasm Hospital of cervix (procedure) [code = 369667444] Future Scheduled 2022-05-20 COLONOSCOPY [facility] Test 17:25:01 SCREENING [code = Hospital COLONOSCOPY SCREENING] Future Scheduled 2022-05-20 SHINGLES VACCINES (1 Met [facility]odist Test 17:25:01 of 2) [code = Hospital SHINGLES VACCINES (1 of 2)] Future Scheduled 2022-05-20 BREAST CANCER [facility] Test 17:25:01 SCREENING [code = Hospital BREAST CANCER SCREENING] Future Scheduled 2022-05-20 COVID-19 VACCINE (3 Meth odist Test 17:25:01 - Booster for Hospital Moderna series) [code = COVID-19 VACCINE (3 - Booster for Moderna series)] Future Scheduled 2022-05-20 INFLUENZA VACCINE Method ist Test 17:25:01 [code = INFLUENZA Hospital VACCINE] Diagnostic Test 2019-06-30 COMPREHENSIVE Expected: [facility] Chente [facility]ge Pending 00:00:00 METABOLIC PANEL 06/30/2019, of Medicine [code = 61035-6] Expires: 11/30/2019 Diagnostic Test 2019-05-30 VITAMIN D 25 HYDROXY Expected: [facility] Pending 00:00:00 [code = 1989-3] 05/30/2019, of Medicine Expires: 11/30/2019 Diagnostic Test 2019-05-30 CBC W/AUTO DIFF WITH Expected: [facility] Pending 00:00:00 PLATELETS [code = 05/30/2019, of Medicin e 01503-5] Expires: 11/30/2019 Diagnostic Test 2019-05-30 C-REACTIVE PROTEIN Expected: [facility] Pending 00:00:00 [code = 1988-5] 05/30/2019, of Medicine Expires: 11/30/2019 Future Scheduled COLON CANCER [facility] [employer]ge Test SCREENING: of Medicine COLONOSCOPY [code = COLON CANCER SCREENING: COLONOSCOPY] Future Scheduled MAMMOGRAM ANNUAL [facility] Test [code = MAMMOGRAM of Medicin e ANNUAL] Future Scheduled TETANUS SHOT (ADULT) [facility] Test [code = TETANUS SHOT of Medi cine (ADULT)] Future Scheduled BMI FOLLOW UP PLAN [employer] Test [code = BMI FOLLOW of Medici ne UP PLAN] Future Scheduled HEPATITIS C [facility] Chente [facility]ge Test SCREENING [code = of Medicin e HEPATITIS C SCREENING] Future Scheduled HIV SCREENING [code [employer] Test = HIV SCREENING] of Medicine Future Scheduled CERVICAL CANCER [employer] Test SCREENING 3 YEAR of Medicine FOLLOW UP [code = CERVICAL CANCER SCREENING 3 YEAR FOLLOW UP] Future Scheduled ZOSTER VACCINE (1 of [employer] Test 2) [code = ZOSTER of Medicin e VACCINE (1 of 2)] Future Scheduled COLON CANCER [facility] Chen[facility] [employer] Test SCREENING: of Medicine COLONOSCOPY [code = COLON CANCER SCREENING: COLONOSCOPY] Future Scheduled MAMMOGRAM ANNUAL [facility] Test [code = MAMMOGRAM of Medicin e ANNUAL] Future Scheduled TETANUS SHOT (ADULT) [employer] Test [code = TETANUS SHOT of Medi cine (ADULT)] Future Scheduled BMI FOLLOW UP PLAN [employer] Test [code = BMI FOLLOW of Medici ne UP PLAN] Future Scheduled HIV SCREENING [code [employer] Test = HIV SCREENING] of Medicine Future Scheduled CERVICAL CANCER [facility] C ollege Test SCREENING 3 YEAR of Medicine FOLLOW UP [code = CERVICAL CANCER SCREENING 3 YEAR FOLLOW UP] Future Scheduled FLU VACCINE > 6 [employer] Test MONTHS [code = FLU of Medici ne VACCINE > 6 MONTHS] Future Scheduled XR HAND BILATERAL 1 Occurrences [employer] Test (COMPLETE) [code = [place] [address]] 05/30/2019 until 05/29/2020 Future Scheduled XR FOOT BILATERAL 1 Occurrences [employer] Test (COMPLETE) [code = [place] [address]-7] 05/30/2019 until 05/29/2020 Future Scheduled XR KNEE BILATERAL AP 1 Occurrences [employer] Test AND LATERAL [code = starting of Medic ine 86741] 05/30/2019 until 05/29/2020 Future Scheduled DEXA BONE DENSITY 1 Occurrences [employer] Test SPINE AND HIP [code starting of Medic ine = 21425] 05/30/2019 until 05/29/2020 Future Scheduled XR RIBS BILATERAL W 1 Occurrences [employer] Test PA CHEST [code = starting of Medicine 18482] 05/30/2019 until 12/30/2019 Encounters Start End Encounter Admission Attending Care Care Encounter Source Date/Time Date/Time Type Type Clinicians Facility Department ID 2019-12-20 Inpatient NAZ Miranda [facility] MIGUEL [id number] [facility] 15:00:00 Lester 36 [facility] 2022-05-13 2022-05-13 Procedure Koffi Roman 1.2.840.1 [id number] Methodi 08:30:00 08:55:[address] 3.430.2.7 Hospit a .3.794183 l .8 2022-05-13 2022-05-13 Travel 1.2.840.1 1.2.559.519 5702 [id number] Methodi 00:00:00 00:00:[address] 3.430.2.7 0.2.7.3.698 Ho spita .3.454151 084.8 l .8 2022-05-13 2022-05-13 Outpatient KOFFI ROMAN [facility] [id number] [place] 00:00:00 00:00:[address] 2022-05-01 2022-05-01 Refill Koffi Roman 1.2.840.1 [id number] Methodi 00:00:00 00:00:[address] 3.430.2.7 Hospit a .3.290894 l .8 2022-03-17 2022-03-17 Lab Lorenzo, 1.2.840.1 [id number] Methodi 16:20:00 16:25:[address] Mohamed 3.430.2.7 Hospit a .3.100232 l .8 2022-03-17 2022-03-17 Outpatient LORENZO, [facility] [id number] [place] 00:00:00 00:00:[address] 2022-03-16 2022-03-16 Procedure Lorenzo, 1.2.840.1 [id number] Methodi 15:30:00 16:16:12 visit Tarrik 17072.1.[address] Mohamed 3.430.2.7 Hospit a .3.641506 l .8 2022-03-16 2022-03-16 Lab Lorenzo, 1.2.840.1 [id number] Methodi 16:00:00 16:05:[address] Mohamed 3.430.2.7 Hospit a .3.060664 l .8 2022-03-16 2022-03-16 Travel 1.2.840.1 1.2.984.592 3303 [id number] Methodi 00:00:00 00:00:[address] 3.430.2.7 0.2.7.3.698 Ho spita .3.715465 084.8 l .8 2022-03-16 2022-03-16 [facility] [id number] [place] 00:00:00 00:00:00 TARRIK [address] 2022-03-16 2022-03-16 Outpatient [facility] [id number] [place] 00:00:00 00:00:00 TARRIK [address] 2022-02-11 2022-02-11 Procedure Koffi Roman 1.2.840.1 [id number] Methodi 08:30:00 08:48:[address] 3.430.2.7 Hospit a .3.118009 l .8 2022-02-11 2022-02-11 Travel 1.2.840.1 1.2.361.496 5856 [id number] Methodi 00:00:00 00:00:[address] 3.430.2.7 0.2.7.3.698 Ho spita .3.587305 084.8 l .8 2022-02-11 2022-02-11 Outpatient KOFFI ROMAN [facility] 558 [id number] [place] 00:00:00 00:00:[address] 2022-02-02 2022-02-02 Office Lorenzo, 1.2.840.1 [id number] Methodi 13:15:00 14:36:46 Visit Tarrik 81970.1.[address] Mohamed 3.430.2.7 Hospit a .3.488860 l .8 2022-02-02 2022-02-02 Travel 1.2.840.1 1.2.228.920 2618 [id number] Methodi 00:00:00 00:00:[address] 3.430.2.7 0.2.7.3.698 Ho spita .3.300323 084.8 l .8 2022-02-02 2022-02-02 Outpatient LORENZO [facility] [id number] [place] 00:00:00 00:00:00 TARRIK [address] 2022-01-11 2022-01-11 Telephone Lorenzo, 1.2.840.1 [id number] Methodi 00:00:00 00:00:[address] Mohamed 3.430.2.7 Hospit a .3.101894 l .8 2021-11-15 2021-11-15 Refill Pacheco, 1.2.840.1 [id number] Methodi 00:00:00 00:00:[address] 3.430.2.7 Hospit a .3.917546 l .8 2021-11-12 2021-11-12 Procedure Koffi Roman 1.2.840.1 [id number] Methodi 08:30:00 08:48:[address] 3.430.2.7 Hospit a .3.423807 l .8 2021-11-12 2021-11-12 Travel 1.2.840.1 1.2.591.861 3226 [id number] Methodi 00:00:00 00:00:[address] 3.430.2.7 0.2.7.3.698 Ho spita .3.421348 084.8 l .8 2021-11-12 2021-11-12 Outpatient KOFFI ROMAN [facility] 090 [id number] [place] 00:00:00 00:00:[address] 2021-10-14 2021-10-14 Refill RomanKoffi 1.2.840.1 [id number] Methodi 00:00:00 00:00:[address] 3.430.2.7 Hospit a .3.384729 l .8 2021-10-11 2021-10-11 Refill RomanKoffi 1.2.840.1 [id number] Methodi 00:00:00 00:00:[address] 3.430.2.7 Hospit a .3.502097 l .8 2021-08-13 2021-08-13 Procedure Koffi Roman 1.2.840.1 [id number] Methodi 08:00:00 08:31:[address] 3.430.2.7 Hospit a .3.588599 l .8 2021-08-13 2021-08-13 Travel 1.2.840.1 1.2.919.596 8432 [id number] Methodi 00:00:00 00:00:[address] 3.430.2.7 0.2.7.3.698 Ho spita .3.419013 084.8 l .8 2021-08-13 2021-08-13 Outpatient KOFFI RMOAN [facility] [id number] [place] 00:00:00 00:00:[address] 2021-07-18 2021-07-18 Refill RomanKoffi 1.2.840.1 [id number] Methodi 00:00:00 00:00:[address] 3.430.2.7 Hospit a .3.669791 l .8 2021-07-05 2021-07-05 Refill RomanKoffi 1.2.840.1 [id number] Methodi 00:00:00 00:00:[address] 3.430.2.7 Hospit a .3.164128 l .8 2021-07-01 2021-07-01 Refill Koffi Roman 1.2.840.1 [id number] Methodi 00:00:00 00:00:[address] 3.430.2.7 Hospit a .3.928366 l .8 2021-05-07 2021-05-07 Outpatient KOFFI ROMAN [facility] [id number] [place] 00:00:00 00:00:[address] 2021-04-23 2021-04-23 Outpatient JAYRO [facility] [id number] [place] 00:00:00 00:00:00 MILA [address] 2021-04-23 2021-04-23 Outpatient JAYRO [facility] [id number] [place] 00:00:00 00:00:00 MILA [address] 2021-03-12 2021-03-12 Outpatient DELEONRYLEE [facility] [id number] [id number] [place] 00:00:00 00:00:[address] 2021-03-12 2021-03-12 Outpatient DELEONRYLEE [facility] [id number] [place] 00:00:00 00:00:[address] 2021-02-05 2021-02-05 Outpatient KOFFI ROMAN [facility] [id number] [place] 00:00:00 00:00:[address] 2020-11-16 2020-11-16 Ambulatory nullFlavo [facility] 34 [id number] Memoria 13:30:00 13:30:00 Pre-Reg r Specialty 05 l [facility] 2020-11-16 2020-11-16 Ambulatory nullFlavo [facility] 34 [id number] Memoria 13:30:00 13:30:00 Pre-Reg r Specialty 05 l [facility] 2020-11-16 2020-11-16 Outpatient MHIE MHIE [id number] Memoria 08:30:00 08:30:00 05 [facility] 2020-11-16 2020-11-16 Outpatient Roderick MG [id number] 08:30:00 08:30:00 Nevaeh L 05 2020-11-06 2020-11-06 Outpatient ROMANSASCHARY [facility] [id number] [place] 00:00:00 00:00:[address] 2020-10-05 2020-10-06 Outpatient nullFlavo [facility] 34 [id number] Memoria 13:30:00 04:59:59 r Specialty 04 l [facility] 2020-10-05 2020-10-06 Outpatient nullFlavo [facility] 34 [id number] Memoria 13:30:00 04:59:59 r Specialty 04 l [facility] 2020-10-05 2020-10-05 Outpatient Staller, MG [place] [id number] 08:30:00 23:59:59 Nevaeh L 04 2020-10-05 2020-10-05 Outpatient MHIE MHIE [id number] Memoria 08:30:00 08:30:00 04 l Lev 2020-07-31 2020-07-31 Outpatient ROMANKOFFI [facility] [id number] [place] 00:00:00 00:00:[address] 2020-07-23 2020-07-23 [facility] [id number] [place] 10:00:00 10:00:00 tSergio VASQUEZ M.D. at [facility]. [facility] A 2020-06-11 2020-06-11 Outpatient PECCORA, [facility] [id number] [place] 00:00:00 00:00:00 ORTHODOX 446 Meth dali 2020-06-11 2020-06-11 Outpatient PECCORA, [facility] [id number] [place] 00:00:00 00:00:00 ORTHODOX [address] 2020-06-11 2020-06-11 Outpatient ROMAN, KOFFI [facility] [id number] [place] 00:00:00 00:00:[address] 2020-05-01 2020-05-01 Outpatient ROMAN KOFFI [facility] 852 [id number] [place] 00:00:00 00:00:[address] 2020-04-20 2020-04-21 Outpatient nullFlavo [facility] 34 [id number] Memoria 14:30:00 05:59:59 r [address] [facility] luisa [place] 2020-04-20 2020-04-21 Outpatient nullFlavo [facility] 34 [id number] Memoria 14:30:00 05:59:59 r Specialty 03 l [facility] 2020-04-20 2020-04-20 Outpatient Roderick, [facility] [id number] 08:30:00 23:59:59 Nevaeh L 2020-04-20 2020-04-20 Outpatient MHIE MHIE [id number] Memoria 08:30:00 08:30:00 03 [facility] 2020-03-30 2020-03-30 Outpatient KOFFI ROMAN [facility] [id number] [place] 00:00:00 00:00:[address] 2020-02-28 2020-02-29 [place] [id number] [facility] 19:30:00 05:59:59 r [facility]rology 02 l [facility] 2020-02-28 2020-02-29 [place] [id number] [facility] 19:30:00 05:59:59 r Urology 02 l [facility] 2020-02-28 2020-02-29 [place] [id number] Memoria 19:30:00 05:59:59 r Urology 01 l [facility] 2020-02-28 2020-02-29 Outpatient nullFlavo [facility] [id number] Memoria 19:30:00 05:59:59 r Urology 01 l [facility] Megan nn Time Share 2020-02-28 2020-02-29 Outpatient nullFlavo [facility] [id number] [facility] 15:46:00 05:59:00 r Lev 00 [facility] 2020-02-28 2020-02-29 Outpatient nullFlavo [facility] [id number] Memoria 15:46:00 05:59:00 r Lev 00 [facility] 2020-02-28 2020-02-28 Outpatient Criser, MG MG [id number] 13:30:00 23:59:59 Nevaeh L 2020-02-28 2020-02-28 Outpatient VISIT, [facility] [id number] 13:30:00 23:59:59 NURSE UATS 02 2020-02-28 2020-02-28 Outpatient STALLER, [facility] MIGUEL [id number] [facility] 09:46:00 23:59:00 NEVAEH 2020-02-28 2020-02-28 Outpatient Staller, [facility] [id number] 09:46:00 23:59:00 Nevaeh L 00 2020-02-28 2020-02-28 Outpatient MHIE MHIE [id number] [facility]oria 13:30:00 13:30:00 01 l Lev 2020-02-28 2020-02-28 Outpatient MHIE MHIE [id number] [facility]oria 13:30:00 13:30:00 02 l Lev 2020-02-07 2020-02-07 Outpatient KOFFI ROMAN [facility] [id number] [place] 00:00:00 00:00:[address] 2020-01-15 2020-01-15 Outpatient SHEEBA MANZANO [facility] 058 [id number] [place] 00:00:00 00:00:[address] 2020-01-09 2020-01-13 Ancillary 1.2.840.3 [id number] [facility] 11:40:49 08:12:46 Procedure 05159.1.1 Co llege 3.210.2.7 of .3.881255 Medici n .8 e 2020-01-09 2020-01-09 Travel 1.2.840.1 1.2.081.600 [id number] [facility] 00:00:00 00:00:00 27930.1.1 350.1.13.21 College 3.210.2.7 0.2.7.3.698 of .3.427393 084.8 Medici n .8 e 2020-01-07 2020-01-07 Travel 1.2.840.1 1.2.032.477 [id number] [facility] 00:00:00 00:00:00 02745.1.1 350.1.13.21 College 3.210.2.7 0.2.7.3.698 of .3.311305 084.8 Medici n .8 e 2019-12-16 2019-12-16 Outpatient ROMAN, KOFFI [facility] 376 [id number] [place] 00:00:00 00:00:[address] 2019-11-01 2019-11-01 Outpatient ROMAN, KOFFI [facility] 332 [id number] [place] 00:00:00 00:00:[address] 2019-07-02 2019-07-02 Outpatient ROMAN, KOFFI [facility] [id number] [place] 00:00:00 00:00:[address] 2019-05-30 2019-05-30 [facility] 1.2.840.114 [id number] 10:05:41 12:55:42 Visit u, Patricia AMBULATOR 350.1.13.21 [place] 0.2.7.2.686 [id number] 370 2019-05-30 2019-05-30 Office [facility] 1.2.840.114 [id number] [facility] 10:05:41 12:55:42 Visit u, Patricia AMBULATOR 350.1.13.21 [place] 0.2.7.2.686 of [id number] [facility] howard 370 e 2019-05-06 2019-05-06 Urgent Carter, Debbie [facility] 1.2.840. 114 [id number] Univers 19:30:23 19:45:23 Care Unknown, [facility] 350.1.13.10 ity of Surgical 4.2.7.2.686 Ean as Specialti [id number] Ok dical 370 [facility] 2019-05-06 2019-05-06 Urgent Carter, [facility] 1.2.840.114 [id number] 19:30:23 19:45:23 Care [facility] 350.1.13.10 Surgical 4.2.7.2.686 Specialti [id number] es 370 [place] 2019-05-06 2019-05-06 Orders Doctor IRINA 1.2.840.114 [id number] Univers 00:00:00 00:00:00 Only Unassigned, JEVON 350.1.13.10 ity of [place] [facility] 4.2.7.2.686 Ean as [id number] [facility] sam 009 Branch 2019-05-06 2019-05-06 Orders Doctor IRINA 1.2.840.114 [id number] 00:00:00 00:00:00 Only Unassigned, JEVON 350.1.13.10 [place] [facility] 4.2.7.2.686 [id number] 009 2019-03-15 2019-03-15 Outpatient PECCORA, [facility] [id number] [place] 00:00:00 00:00:00 ORTHODOX [address] 2019-01-30 2019-01-30 Outpatient ROMAN, KOFFI [facility] 326 [id number] [place] 00:00:00 00:00:00 674 Method i 2019-01-30 2019-01-30 Outpatient KOFFI ROMAN [facility] 865 [id number] [place] 00:00:00 00:00:[address] 2019-01-23 2019-01-23 Outpatient PECCORA, [facility] 021 [id number] [place] 00:00:00 00:00:00 ORTH[address]OX [address] Results Test Description Test Time Test Comments Results Result Comments Source Surgical pathology request 2022-03-22 19:04:38 Test Item Value Reference Range Interpretation Comme nts Case number (test code = 8015700) [id number] Surgical pathology report (test code = See link below for PDF Lab R eport 6743) Result status (test code = 7770398) This is Final Report for [id number] 7032-2 [facility]2020-12-04 16:36:00 Test Item Value Reference Range Interpretation Comments Creatinine Lvl (test code = Creatinine 0.85 0.50-1.40 Lvl) [facility]2020-12-04 16:36:00 Test Item Value Reference Range Interpretation Comments eGFR (test code = eGFR) 79 [facility]2020-12-04 16:36:00 Test Item Value Reference Range Interpretation Comments Creatinine Lvl (test code = Creatinine 0.85 0.50-1.40 Lvl) [facility]2020-12-04 16:36:00 Test Item Value Reference Range Interpretation Comments eGFR (test code = eGFR) 79 [facility]2020-12-04 16:36:00 Test Item Value Reference Range Interpretation Comments Creatinine Lvl (test code = Creatinine 0.85 0.50-1.40 Lvl) [facility] [id number] 16:36:00 Test Item Value Reference Range Interpretation Comments eGFR (test code = eGFR) 79 [facility] [id number] 16:36:00 Test Item Value Reference Range Interpretation Comments Creatinine Lvl (test code = Creatinine 0.85 0.50-1.40 Lvl) [facility] [id number] 16:36:00 Test Item Value Reference Range Interpretation Comments eGFR (test code = eGFR) 79 [facility] [id number] 16:36:00 Test Item Value Reference Range Interpretation Comments Creatinine Lvl (test code = Creatinine 0.85 0.50-1.40 Lvl) [facility] [id number] 16:36:00 Test Item Value Reference Range Interpretation Comments eGFR (test code = eGFR) 79 [facility]TableNOW [id number] 16:36:000.85[facility] 2020-02-28 16:36:0079[facility]annDEXA BONE DENSITY 2 [id number] 17:08:09Exam: Bone mineral density study. History: Osteopenia. Comparison: None Discussion: Evaluation of the left hip and lumbar spine was performedutilizing DEXA Hologic bone densitometer. The study is technically adequate. Left hip total bone mineral density: 0.940gm/cm2, T-score is 0, Z-score is0.6. Left hip femoral neck bone mineral density: 0.665gm/cm2, T-score is -1.7,Z-score is -0.7. Lumbar spine total bone mineral density:0.822gm/cm2, T-score is-2.0,Z-score is - 1.1. Impression:1. Osteopenia of the left hip, fracture risk is increased2. Osteopenia of the lumbar spine, fracture risk is increased Least significant change (LSC) for bone mineral density as provided byjesseacturer is 0.023 g/cm2 for lumbar spine and 0.027 g/cm2 for total hip. 10 -year fracture risk per WHO Fracture Risk Assessment Tool (FRAX) for:Major osteoporotic fracture is 3.0%Hip fracture is 0.2%The above fracture probability iscalculated for an untreated patient.Fracture probably may be lower if the patient has received treatment. Alltreatment decisions require clinical judgment and consideration ofindividual patient factors, including patient preferences, comorbidities,previous drug use and risk factors not captured in theFRAX model (e.g.frailty, falls, vitamin D deficiency, increased bone turnover, intervalsignificant decline in BMD). The patient's fracture risk is compared to an age-matched control. Medical evaluationfor secondary causes of low bone bone mineral densitymay be appropriate. Correlate clinically for the necessity and timing of the next bone mineraldensity study. Signed by: Dr. Wero Mckeon M.D. on 01/09/2020 12:08 PM Andre, Rad Results In - 01/09/2020 12:11 PM CDTExam: Bone mineral density study.History: Osteopenia.Comparison: NoneDiscussion: Evaluation of the left hip and lumbar spine was performedutilizing DEXA Hologic bone densitometer. The study is technically adequate.Left hip total bone mineraldensity: 0.940gm/cm2, T-score is 0, Z-score is0.6. Left hip femoral neck bone mineral density: 0.665g m/cm2, T-score is -1.7,Z-score is -0.7. Lumbar spine total bone mineral density:0.822gm/cm2, T-scoreis-2.0,Z-score is -1.1. Impression:1. Osteopenia of the left hip, fracture risk is increased2. Osteopenia of the lumbar spine, fracture risk is increasedLeast significant change (LSC) for bone mineral d ensity as provided bymanufacturer is 0.023 g/cm2 for lumbar spine and 0.027 g/cm2 for total hip.10 -year fracture risk per WHO Fracture Risk Assessment Tool (FRAX) for:Major osteoporotic fracture is 3.0%Hip fracture is 0.2%The above fracture probability is calculated for an untreated patient.Fracture probably may be lower if the patient has received treatment. Alltreatment decisions require clinical judgment and consideration ofindividual patient factors, including patient preferences, comorbidities,previous drug use and risk factors not captured in the FRAX model (e.g.frailty, falls, vitamin D deficiency, increased bone turnover, intervalsignificant decline in BMD).The patient's fracture risk is compared to an age-matched control.Medical evaluation for secondary causes of low bone bone mineral densitymay be appropriate.Correlate clinically for the necessity and timing of the next bone mineraldensity study.Signed by: Dr. Wero Mckeon M.D. on 01/09/2020 12:08 [facility]2020-09-30 16:09:00 RUN DATE: 12/25/19 [facility] PAGE 1 RUN TIME: 1609 Specimen Inquiry RUN USER: INTERFACE ---- --------PATIENT: AVNI MENDEZRadha Botello LOC: PatriciaDSU U #: [id number] AGE/SX: 54/F ROOM: RE12/24/19MARCO DR:Lester Miranda III : 69 BED: DIS: STATUS: [facility] TLOC: SPEC #: [id number] RECD: 12/24/19 STATUS: ARMOND MERLOS #: [id number] CHETNE: 12/24/191251 SUBM DR: Lester Miranda III, MD ENTERED: 12/24/19 SP TYPE: SURG OTHR DR: Self Referred Sheeba Manzano MDORDERED: SURG PATH LVL 05/26 COPIES [place]: [place] [address] [place] [address] [place] [address] [facility] [address] [place] [id number] [email or web address] HISTOLOGY:TISSUE ID BLK PCS CHIKIS LEV PROCEDURE DISPOSITION ____ ___ ___ ___ TONSIL, NOS A 1 1 TONSIL, NOS B 1 1 PROCEDURES: SURG PATH LVL 3 (12/24/19) TISSUES: A. TONSIL, NOS - RIGHT TONSIL B. TONSIL, NOS - LEFT TONSIL CLINICAL HISTORY TONSILLAR HYPERTROPHY- J35.1 CPT CODES CPT CODE(S): 06033Q0 , , , , , , FINAL DIAGNOSIS A. Tonsil, right, tonsillectomy:CHRONIC TONSILLITIS B. Tonsil, left, tonsillectomy: CONTINUED ON NEXT PAGE RUN DATE: 12/25/19 [facility] PAGE 2 RUN TIME: 1609 Specimen Inquiry RUN USER: INTERFACE SPEC #: [id number]:[id number] PATIENT: ARIANE MENDEZ #[id number] (Continued) FINAL DIAGNOSIS (Continued) CHRONIC TONSILLITIS GROSS DESCRIPTION A.Right tonsil. Received in formalin is a portion of villalobos-brown soft tissue, partially covered by pink-villalobos mucosa, 2.5 x 1.5 x 1.3 cm. The cut surface is soft, pink-villalobos with crypts. No gross lesion is identified. Security Operations Analyst section submitted as A. B. Left tonsil. Received in formalin is a portion of villalobos-brown soft tissue, partially covered by pink-villalobos mucosa, 2.3 x 1.6 x 1.1 cm. The cut surface is soft, pink-villalobos with crypts. No gross lesion is identified. Security Operations Analyst section submitted as B. ba/nr Grossing performed at [facility] Pathology, [address] [facility] [address], [address], [place] [address]. [facility] Director: Damon Evans M.D. MICROSCOPIC DESCRIPTION A. Right tonsil. Sections demonstrate tonsil tissue with lymphoid hyperplasia. Associated squamous mucosa demonstrates mild acute and chronic inflammation. No dysplasia or malignancy is identified. B. Left tonsil. Sections demonstrate tonsillar tissue with lymphoid hyperplasia. Associated squamous mucosa demonstrates mild acute and chronic inflammation. No dysplasia or malignancy is identified. Signed SIGNATURE ON FILE Sudeep Puentes 12/25/19 1609 END OF REPORT UR HCG [id number] 07:56:00 Test Item Value Reference Range Interpretation Comments UR HCG QUAL (test code = HCGQLU) NEGATIVE NEGATIVE COVID 19 INHOUSE [id number] 17:51:00 Test Item Value Reference Range Interpretation Comments COVID 19 INHOUSE AG NEGATIVE Negative Per geo facturer, (test code = negative result s should [id number]) be treated aspr esumptive and, if inconsi stent with clinical signs andsymptoms or necessary for patient man agement, should betested with an alternative mol ecular assay. Negative resultsdo not preclude SA RS-CoV-2 infection and s hould not be usedas the s ole basis for patient man agement decisions. Nega tive results should be considered in t he context of apatient's r ecent exposures, hist ory, presence of cli nicalsigns and symptoms co nsistent with COVID-19. CCP AB (IGG/IGA)2019-05-31 22:12:17 Test Item Value Reference Range Interpretation Comments CCP IGG (test code SEE BELOW UNITS INTER PRETATION CCP IgG = 67418-3) NEGATIVE UNITS <20 WEAK POSITIVE UNITS 20-39 MODERATE POSITIVE UNITS 40-59 STRONG POSITIVE UNITS >60 Unless Otherwise Indic ated, All Testing Perform ed At: [facility], [address] [place], [place] [address] 4 Telescope Operator: Jessica Mcdowell [id number] [place] [address]-25 [facility] [id number] 20:16:22 Test Item Value Reference Range Interpretation Comments HLA B27 (test NOT PRESENT SEE BELOW INTERPRETIVE code = 66057-4) INFORMATION: HLA-B27 Allele Frequenc y: Caucasians . . . . . 7.6% Karen ns. . 3.0% Asians . . . . . . . 0.8% Assay methodolo gy is Flow Cytometry with in vitro diagnostic prim geoff antibody and, a s indicated, seco ndary antibody assay systems. Unless Otherwis e Indicated, All Testing Performed At: [facility] [address] [address] Laborator y Director: James Centeno M.D. CLIA Number [id number] [place]. [id number] [facility] Hospital[facility]IT[facility]IN D 25 [id number] 12:26:22 Test Item Value Reference Range Interpretation Comments VITAMIN D 25-HYDROXY SEE BELOW NG/ML NOT E: 25-HYDROXYVITAMIN D (test code = 1988-05) ASSAY I NCLUDES 25-HYDROXYVITAM IN D2 AND D3. METHODOLOGY IS CHEMILUMINESCEN T IMMUNOASSAY. $$ $$$ INTERPRETIVE RA NGES $$$$$PEDIATRIC (<17 YEARS) . . . . . . . . . . . NG/ML 20-100ADULT: IN SUFFICIENT . . . . . . . . . . . . . . NG/ML <20 SUBOP TIMAL . . . . . . . . . . . . . . . NG/ML 20-29 OPTIMAL . . . . . . . . . . . . . . . . . NG/ML 30-100 Unless O therwise Indicated, All Testing Performed At: [facility] [place] [address] Laboratory Dire ctor: James Centeno M.D. CLIA Number [id number] [place]. [id number] [facility] HospitalCBC W/AUTO DIFF WITH [id number] 09:17:15 Test Item Value Reference Range Interpretation Comments WHITE BLOOD CELL COUNT See_Comment [Aut omated message] (test code = 46265-7) The sy stem which generated this result transmitted ref erence range: 4.0 - 11 .0 K/UL. The refer ence range was not u sed to interpret this result as normal/abnor mal. RED BLOOD CELL COUNT See_Comment [Autom ated message] (test code = 91277-8) The sy stem which generated this result transmitted ref erence range: 3.80 - 5 .10 M/UL. The refer ence range was not u sed to interpret this result as normal/abnor mal. HEMOGLOBIN (test code = See_Comment [Au tomated message] 718-7) The system whic h generated this result transmitted ref erence range: 11.5 - 1 5.5 G/DL. The refer ence range was not u sed to interpret this result as normal/abnor mal. HEMATOCRIT (test code = 38.9 % 34-45 54680-5) MEAN CORPUSCULAR VOLUME 82.2 fL 80-100 (test code = 52693-2) MEAN CORPUSCULAR 27.3 PG 27-34 HEMOGLOBIN (test code = 59643-3) MEAN CORPUSCULAR See_Comment [Automated message] HEMOGLOBIN CONC (test The sy stem which code = 87456-6) generated th is result transmitted ref erence range: 32.0 - 3 5.5 G/DL. The refer ence range was not u sed to interpret this result as normal/abnor mal. RED CELL DISTRIBUTION 13.8 % 11-15 WIDTH (test code = 76925-2) NEUTROPHILS % (test code 49.0 % 40-74 = 02609-9) LYMPHOCYTES % (test code 42.5 % 19-48 = 46206-7) MONOCYTES % (test code = 6.0 % 4-13 50803-5) EOSINOPHILS % (test code 1.8 % 0-7 = 38094-3) BASOPHILS % (test code = 0.7 % 0-2 36505-2) PLATELET COUNT (test See_Comment Unless Otherwise code = 76201-5) Indicated, A ll Testing Performed At: [facility], [address] [place] [address] [place] [address] Director: Jessica McdowellIA Number [id number] [place]. [id number] [Autom ated message] The sy stem which generated this result transmit ashlyn reference range : 130 - 400 K/UL. The reference range was not used to int erpret this result as normal/abnormal . [facility] HospitalCOMPREHENSIVE METABOLIC [id number] 09:15:24 Test Item Value Reference Range Interpretation Comments GLUCOSE (test code = See_Comment [Autom ated message] The 8505-7) system which ge nerated this result tra nsmitted reference range : 70 - 99 MG/DL. The refe rence range was not u sed to interpret this result as normal/abnormal . BLOOD UREA NITROGEN See_Comment [Automa ashlyn message] The (test code = 3091-6) system which generated this result tra nsmitted reference range : 6 - 20 MG/DL. The refe rence range was not u sed to interpret this result as normal/abnormal . CREATININE (test code = See_Comment [Au tomated message] The ) system which ge nerated this result tra nsmitted reference range : 0.60 - 1.30 MG/DL. The reference range was not used to interpr et this result as normal/abnormal . EGFR AA (test code = See_Comment [Autom ated message] The 42659-1) system which ge nerated this result tra nsmitted reference range : >60 ML/MIN/1.73. Th e reference range was not used to interpr et this result as normal/abnormal . EGFR (test code = See_Comment [Automate d message] The 36384-8) system which ge nerated this result tra nsmitted reference range : >60 ML/MIN/1.73. Th e reference range was not used to interpr et this result as normal/abnormal . BUN/CREAT RATIO (test See_Comment [Auto mated message] The code = 3097-3) system which generated this result tra nsmitted reference range : 6 - 28 RATIO. The refe rence range was not u sed to interpret this result as normal/abnormal . SODIUM (test code = See_Comment [Automa ashlyn message] The 2951-2) system which ge nerated this result tra nsmitted reference range : 133 - 146 MEQ/L. The reference range was not u sed to interpret this result as normal/abnormal . POTASSIUM (test code = See_Comment [Aut omated message] The 2823-3) system which ge nerated this result tra nsmitted reference range : 3.5 - 5.4 MEQ/L. The reference range was not u sed to interpret this result as normal/abnormal . CHLORIDE (test code = See_Comment [Auto mated message] The ) system which ge nerated this result tra nsmitted reference range : 95 - 107 MEQ/L. The reference range was not u sed to interpret this result as normal/abnormal . CO2 (test code = See_Comment [Automated message] The 1962-10) system which ge nerated this result tra nsmitted reference range : 19 - 31 MEQ/L. The refe rence range was not u sed to interpret this result as normal/abnormal . CALCIUM (test code = See_Comment [Autom ated message] The 06661-4) system which ge nerated this result tra nsmitted reference range : 8.5 - 10.5 MG/DL. The reference range was not used to interpr et this result as normal/abnormal . PROTEIN TOTAL (test See_Comment [Automa ashlyn message] The code = 2885-2) system which generated this result tra nsmitted reference range : 6.1 - 8.3 G/DL. The r eference range was not u sed to interpret this result as normal/abnormal . ALBUMIN (test code = See_Comment [Autom ated message] The 28491-8) system which ge nerated this result tra nsmitted reference range : 3.5 - 5.2 G/DL. The r eference range was not u sed to interpret this result as normal/abnormal . GLOBULINS, SERUM, TOTAL See_Comment [Au tomated message] The (test code = 98134-9) system which generated this result tra nsmitted reference range : 1.9 - 3.7 G/DL. The r eference range was not u sed to interpret this result as normal/abnormal . A/G RATIO (test code = See_Comment [Aut omated message] The 175-0) system which ge nerated this result tra nsmitted reference range : 1.0 - 2.6 RATIO. The reference range was not u sed to interpret this result as normal/abnormal . BILIRUBIN TOTAL (test See_Comment [Auto mated message] The code = 1974-2) system which generated this result tra nsmitted reference range : <=1.2 MG/DL. The refe rence range was not u sed to interpret this result as normal/abnormal . ALKALINE PHOSPHATASE 74 U/L 40-132 (test code = 6768-6) AST (SGOT) (test code = 19 U/L 9-40 1920-8) ALT (SGPT) (test code = 20 U/L 5-40 Unl ess Otherwise 1744-2) Indicated, All Testing Performed At: [facility], [address] [place] [address] Av paz Director: James Centeno M.D. CLIA Number [id number] Cap Accreditation N o. [facility] HospitalRHEUMATOID [id number] 09:14:51 Test Item Value Reference Range Interpretation Comments RHEUMATOID FACTOR (test <10 See_Comment Unl ess Otherwise code = 34582-8) Indicated, A ll Testing Performed At: [facility], [address] [place] [address] Av paz Director: Jessica McdowellIA Number [id number] Cap Accreditation N o. [Autom ated message] The sy stem which generated this result transmit ashlyn reference range : <14 IU/ML. The refe rence range was not u sed to interpret this result as normal/abnormal . [facility] HospitalC-REACTIVE [id number] 09:14:51 Test Item Value Reference Range Interpretation Comments C-REACTIVE PROTEIN (test See_Comment H Un less Otherwise code = 1988-5) Indicated, Al l Testing Perform ed At: [facility], [address] [place] [address] Laborator y Director: Jessica McdowellIA Number [id number] Cap Accreditation N o. [id number] [Autom ated message] The sy stem which generated this result transmit ashlyn reference range : <0.5 MG/DL. The refe rence range was not u sed to interpret this result as normal/abnor mal. Lab Interpretation (test Abnormal code = 95922-1) [facility]
[2022-06-14] MEDS ORDERED: MECLIZINE HCL 12.5 MG TAB ONE (16:10)
[2022-06-14] MEDS ORDERED: ONDANSETRON 4 MG/2 ML VIAL ONE (16:11)
[2022-06-14] MEDS ORDERED: NA CHLORIDE 0.9% 1,000 ML ONE (16:11)
[2022-06-14 16:18] LABS: Absolute Lymphocytes (CBC) 3.6 K/uL (0.7-4.9); Hematocrit 36.4 % (36.0-45.0); MCV 78.9 fL (80-100); MPV 7.4 fL (7.6-11.3); RBC Red Blood Cell Count 4.62 M/uL (3.86-4.86)
[2022-06-14 16:21] LABS: Protime INR 1.01
--- NOTE | 2022-06-14 16:23 | RAD REPORT ---
EXAM DESCRIPTION: RAD - Chest Single View - 06/14/2022 4:10 pm CLINICAL HISTORY: dizziness Chest pain. COMPARISON: Chest Single View dated 10/10/2017; Chest Single View dated 03/17/2016; Chest Single View dated 08/20/2015; CHEST PA AND LAT 2 VIEW dated 08/15/2012 FINDINGS: Portable technique limits examination quality. The lungs are grossly clear. The heart is normal in size. No displaced fractures. IMPRESSION: No acute intrathoracic process suspected.
[2022-06-14 17:03] LABS: Sodium Level 138 mEq/L (136-145)
[2022-06-14 17:04] LABS: ALT/SGPT 20 U/L (13-56); AST/SGOT 12 U/L (15-37); Alkaline Phosphatase 55 U/L (45-117); BUN Blood Urea Nitrogen 8 mg/dL (7-18); Bicarbonate 26 mEq/L (21-32); Bilirubin Total 0.2 mg/dL (0.2-1.0); Glomerular Filtration Rate 102 ml/min (=/>90); Glucose Level 93 mg/dL (74-106); Potassium 3.7 mEq/L (3.5-5.1)
[2022-06-14 17:05] LABS: Albumin 3.8 g/dL (3.4-5.0); Bilirubin Direct < 0.1 mg/dL (0-0.2); Protein, Total 6.9 g/dL (6.4-8.2); Troponin High Sensitivity 3.5 (<58.9)
[2022-06-14 17:15] LABS: Specific Gravity < 1.005 (1.005-1.030); Urine Bacteria <20 /HPF (<20); Urine Bilirubin NEGATIVE (Negative); Urine Blood Negative (Negative); Urine Clarity Clear (Clear); Urine Color Colorless (Yellow); Urine Glucose NEGATIVE (Negative); Urine Protein NEGATIVE (Negative); Urine RBC <5 /HPF (None Seen); Urine Urobilinogen Normal (Normal); Urine WBC Clump Rare /HPF (None Seen)
[2022-06-14 17:39] LABS: SARS-COV-2 RT PCR NEGATIVE (NEGATIVE)
--- NOTE | 2022-06-14 17:42 | RAD REPORT ---
EXAM DESCRIPTION: CT - Head Brain Wo Cont - 06/14/2022 5:34 pm CLINICAL HISTORY: DIZZINESS Headache, drowsiness COMPARISON: Head Brain Wo Cont dated 10/10/2017; Head Brain Wo Cont dated 07/08/2016 TECHNIQUE: All CT scans are performed using dose optimization technique as appropriate and may inclu de automated exposure control or mA/KV adjustment according to patient size. FINDINGS: No intracranial hemorrhage, hydrocephalus or extra-axial fluid collection.No areas of brai n edema or evidence of midline shift. The paranasal sinuses and mastoids are clear. Evidence of prior posterior fossa craniotomy. IMPRESSION: No acute intracranial abnormality.
--- NOTE | 2022-06-14 17:51 | RAD REPORT ---
EXAM DESCRIPTION: CT - Head angio - 06/14/2022 5:38 pm CLINICAL HISTORY: DIZZINESS Headache, drowsiness CVA symptomology COMPARISON: Head Brain Wo Cont dated 06/14/2022; Head Brain Wo Cont dated 10/10/2017 TECHNIQUE: CT angiography of the head was performed with MIPs. All CT scans are performed using dose optimization technique as appropriate and may include automated exposure control or mA/KV adjustment according to patient size. FINDINGS: No evidence of large vessel occlusion. No evidence of aneurysm is detected. No flow-limiti ng stenosis or vascular malformation identified. Antegrade flow is seen in the vertebral arteries. The vertebral arteries are codominant. The visualized dural venous sinuses are patent. IMPRESSION: No significant flow abnormality is detected.
--- NOTE | 2022-06-14 17:55 | RAD REPORT ---
EXAM DESCRIPTION: CT - Neck Angio - 06/14/2022 5:38 pm CLINICAL HISTORY: dizziness Headache, drowsiness COMPARISON: <Comparisons> TECHNIQUE: CT angiography of the neck vessels was performed with MIPs. All CT scans are performed using dose optimization technique as appropriate and may include automated exposure control or mA/KV adjustment according to patient size. FINDINGS: A left aortic arch is identified with normal three vessel configuration of the great vesse ls. No significant flow abnormality is seen of the common carotid bilaterally. Mild calcified plaque is seen involving both carotid bulbs, slightly more prominent on the left. No s ignificant stenosis is seen. Normal flow is seen within both vertebral arteries. IMPRESSION: Mild hard plaquing is noted, particularly left carotid bulb. No significant stenosis genny ntified.
--- NOTE | 2022-06-14 18:18 | EDPHYS ---
Physician Documentation [facility] Name: Jennifer Jansen Age: 57 yrs Sex: Female : 1965 Arrival Date: 06/14/2022 Time: 15:51 Bed 7 Private MD: ED Physician Farhad Hilton HPI: 06/14 17:29 This 57 yrs old Female presents to ER via EMS with complaints of dizziness, rn possible syncopal episode. 17:29 The patient presents with feeling faint, generalized weakness, feeling off balance, rn sense of spinning. Onset: The symptoms/episode began/occurred 2 day(s) ago. Modifying factors: The symptoms are alleviated by nothing, the symptoms are aggravated by movement of head, standing up, changing position. Associated signs and symptoms: Pertinent positives: nausea, vomiting, Pertinent negatives: abdominal pain, chest pain, shortness of breath. Severity of symptoms: At their worst the symptoms were moderate in the emergency department the symptoms have improved. The patient has experienced similar episodes in the past. Pt sent from doctor's office, has been having dizzy spells that began 2 days ago, assoc with posterior headache. Pt has hx of chronic migraines and chiari malformation, as well as hx of seizures. EMS reports PCP reported nystagmus and sent patient for further evaluation. Pt reports subjective fever, but none recorded here. NO focal weakness/numbness. NO slurred speech or vision changes. No head injury. No medication changes. . 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 - Social history:: Smoking status: Patient denies any tobacco usage or history of. Patient/guardian denies using alcohol. - Family history:: not pertinent. - Hospitalizations: : No recent hospitalization is reported. ROS: 17:29 Constitutional: Negative for fever, chills, and weight loss, Eyes: Negative for injury, rn pain, redness, and discharge, ENT: Negative for injury, pain, and discharge, Neck: Negative for injury, pain, and swelling, Cardiovascular: Negative for chest pain, palpitations, and edema, Respiratory: Negative for shortness of breath, cough, wheezing, and pleuritic chest pain, Abdomen/GI: Negative for abdominal pain, diarrhea, and constipation, Back: Negative for injury and pain, MS/Extremity: Negative for injury and deformity, Skin: Negative for injury, rash, and discoloration, Neuro: Negative for numbness, tingling Exam: 17:26 ECG was reviewed by the Attending Physician. rn 17:34 Constitutional: This is a well developed, well nourished patient who is awake, alert, rn and in no acute distress. Head/Face: Normocephalic, atraumatic. Eyes: Pupils equal round and reactive to light, extra-ocular motions intact. Lids and lashes normal. Conjunctiva and sclera are non-icteric and not injected. No nystagmus noted Neck: Trachea midline, no masses palpated, and no cervical lymphadenopathy. Supple, full range of motion without nuchal rigidity, or vertebral point tenderness. No Meningismus. Cardiovascular: Regular rate and rhythm. No pulse deficits. Respiratory: No increased work of breathing, no retractions or nasal flaring. Abdomen/GI: soft, non-tender Skin: Warm, dry MS/ Extremity: Pulses equal, no cyanosis. Neuro: Awake and alert, GCS 15, oriented to person, place, time, and situation. Cranial nerves II-XII grossly intact. Motor strength 4/5 in all extremities. Sensory grossly intact. Cerebellar exam normal. Vital Signs: 16:01 BP 128 / 107; Pulse 69; Resp 18; Temp 98.7(O); Pulse Ox 98% on R/A; Weight 65.32 kg; ph Height 4 ft. 9 in. ; 16:01 Body Mass Index 31.16 (65.32 kg, 144.78 cm) ph MDM: 15:51 Patient medically screened. rn 18:09 Differential diagnosis: cardiac arrhythmia, CVA, generalized weakness, rn hyperventilation, hypovolemia, idiopathic dizziness, near-syncope, syncope, TIA, vertigo. Differential diagnosis: seizure. Data reviewed: vital signs, nurses notes. Consideration of Admission/Observation Escalation of care including admission/observation considered. I considered the following discharge prescriptions or medication management in the emergency department Medications were administered in the Emergency Department. See MAR. Counseling: I had a detailed discussion with the patient and/or guardian regarding: the historical points, exam findings, and any diagnostic results supporting the discharge/admit diagnosis, lab results, radiology results, the need for outpatient follow up, to return to the emergency department if symptoms worsen or persist or if there are any questions or concerns that arise at home. Response to treatment: the patient's symptoms have markedly improved after treatment, and as a result, I will discharge patient. Special discussion: I discussed with the patient/guardian in detail that at this point there is no indication for admission to the hospital. It is understood, however, that if the symptoms persist or worsen the patient needs to return immediately for re-evaluation. Based on the history and exam findings, there is no indication for further emergent testing or inpatient evaluation. I discussed with the patient/guardian the need to see the neurologist for further evaluation of the symptoms. ED course: . 18:11 ED course: Pt reports feels much better. CT angios negative for acute abnormality. UA rn neg. Labs unremarkable. Offered admission/observation to clarify seizure vs syncope vs vertigo. Family member reports never on seizure meds and usually "anxiety induced". Pt reports recurrent vertigo and this feels similar. Patient and family member want to go home, do not want to be admitted or transferred, understands return precautions. Will dc home with meclizine and prn nausea meds. . 06/14 15:52 Order name: Basic Metabolic Panel; Complete Time: 17:44 06/14 15:52 Order name: CBC with Diff; Complete Time: 17:44 06/14 15:52 Order name: Hepatic Function; Complete Time: 17:44 06/14 15:52 Order name: Magnesium; Complete Time: 17:44 06/14 15:52 Order name: Protime (+inr); Complete Time: 17:44 06/14 15:52 Order name: Ptt, Activated; Complete Time: 17:44 06/14 15:52 Order name: Troponin High Sensitivity; Complete Time: 17:44 06/14 15:53 Order name: COVID-19/FLU A+B; Complete Time: 17:44 06/14 15:53 Order name: Urinalysis w/ reflexes; Complete Time: 17:44 rn 06/14 15:52 Order name: Chest Single View XRAY; Complete Time: 17:44 rn 06/14 15:52 Order name: Head Angio CT; Complete Time: 17:53 rn 06/14 15:55 Order name: Neck Angio CT; Complete Time: 17:56 rn 06/14 16:41 Order name: Head Brain Wo Cont; Complete Time: 17:44 EDMS 06/14 15:52 Order name: EKG; Complete Time: 15:52 rn 06/14 15:52 Order name: Cardiac monitoring; Complete Time: 16:55 rn 06/14 15:52 Order name: EKG - Nurse/Tech; Complete Time: 16:55 rn 06/14 15:52 Order name: IV Saline Lock; Complete Time: 16:15 rn 06/14 15:52 Order name: Labs collected and sent; Complete Time: 16:15 rn 06/14 15:52 Order name: NPO; Complete Time: 16:15 rn 06/14 15:52 Order name: O2 Per Protocol; Complete Time: 16:15 rn 06/14 15:52 Order name: O2 Sat Monitoring; Complete Time: 16:15 rn EC:26 Rate is 77 beats/min. Rhythm is regular. QRS [place] is Normal. FL interval is normal. QRS rn interval is normal. QT interval is normal. No Q waves. T waves are Normal. No ST changes noted. Clinical impression: Normal ECG. Interpreted by me. Reviewed by me. Administered Medications: 16:16 Drug: Meclizine PO 50 mg Route: PO; hb 16:57 Follow up: Response: No adverse reaction ph 16:16 Drug: Ondansetron IVP 4 mg Route: IVP; Site: right antecubital; hb 19:03 Follow up: Response: No adverse reaction ap3 16:16 Drug: NS 0.9% IV 1000 ml Route: IV; Rate: 1000 ml; Site: right antecubital; hb 18:00 Follow up: Response: No adverse reaction; IV Status: Completed infusion; IV Intake: ph 1000ml 19:02 Drug: morphine IVP or IV 4 mg Route: IVP; Infused Over: 4 mins; Site: left antecubital; ap3 19:15 Follow up: Response: No adverse reaction ph Disposition Summary: 06/14/22 18:17 Discharge Ordered Location: Home rn Problem: new rn Symptoms: have improved rn Condition: Stable rn Diagnosis - Vertigo rn - Dizziness and giddiness rn - Syncope rn Followup: rn - With: Private Physician - When: As needed - Reason: Recheck today's complaints, Re-evaluation by your physician Discharge Instructions: - Discharge Summary Sheet rn - Dizziness rn - Syncope rn - Vertigo rn Forms: - Medication Reconciliation Form rn - Thank You Letter rn - Antibiotic workers compensation defense attorney - Prescription Opioid Use rn Prescriptions: - Meclizine 25 mg Oral Tablet - take 1 tablet by ORAL route every 8 hours As needed; 30 tablet; Refills: 0, rn Product Selection Permitted - promethazine 25 mg Oral Tablet - take 1 tablet by ORAL route every 8 hours As needed; 15 tablet; Refills: 0, rn Product Selection Permitted Signatures: Dispatcher [employer] Farhad Yeager MD MD rn Hall, Patricia, RN RN ph Baxter, Heather, RN LISA Michelle Honeycutt RN RN ap3
--- NOTE | 2022-06-14 18:18 | ER ---
Nurse's Notes [facility] Name: Jennifer Jansen Age: 57 yrs Sex: Female : 1965 Arrival Date: 06/14/2022 Time: 15:51 Bed 7 Private MD: Diagnosis: Vertigo;Dizziness and giddiness;Syncope Presentation: 06/14 16:01 Chief complaint: EMS states: Pt had a syncopal episode at PCPs office, was witnessed by staff who stated that the pt had some nystagmus prior to passing out, reports hx of absence seizures, pt awake and alert upon EMS arrival, states that she has been feeling bad since Monday w/ dizziness and low grade fever, also c/o headache that radiates down into neck and nausea, 4 mg Zofran given then pt had "dry heaves" 12.5 Phenergan then given, VSS, BGL 103. Coronavirus screen: Vaccine status: Patient reports receiving the 2nd dose of the covid vaccine. Ebola Screen: No symptoms or risks identified at this time. Initial Sepsis Screen: Does the patient meet any 2 criteria? No. Patient's initial sepsis screen is negative. Does the patient have a suspected source of infection? No. Patient's initial sepsis screen is negative. Risk Assessment: Do you want to hurt yourself or someone else? Patient reports no desire to harm self or others. Onset of symptoms was June 14, 2022. 16:01 Method Of Arrival: EMS: [facility] 16:01 Acuity: ARTHUR 3 ph Triage Assessment: 16:12 General: Appears. ph 16:13 General: Appears in no apparent distress. comfortable, Behavior is calm, cooperative, ph appropriate for age. Pain: Complains of pain in left parietal area, right parietal area, occipital area and base of the skull Pain radiates to neck. Neuro: Level of Consciousness is awake, alert, obeys commands, Oriented to person, place, time, situation, Reports dizziness, headache. Cardiovascular: Capillary refill < 3 seconds in bilateral fingers Patient's skin is warm and dry. Respiratory: Airway is patent Respiratory effort is even, unlabored. GI: Reports nausea, Patient currently denies abdominal pain, vomiting. Derm: Skin is healthy with good turgor, Skin is pink, warm \\T\\ dry. 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 - Social history:: Smoking status: Patient denies any tobacco usage or history of. Patient/guardian denies using alcohol. - Family history:: not pertinent. - Hospitalizations: : No recent hospitalization is reported. Screenin:10 [facility] ED Fall Risk Assessment (Adult) Score/Fall Risk Level 3 or more points = High hb Risk Oriented to surroundings, Maintained a safe environment, Educated pt \\T\\ family on fall prevention, incl call for assistance when getting out of bed. Abuse screen: Denies threats or abuse. Denies injuries from another. Nutritional screening: No deficits noted. Tuberculosis screening: No symptoms or risk factors identified. Assessment: 16:17 General: See triage assessment . hb Vital Signs: 16:01 BP 128 / 107; Pulse 69; Resp 18; Temp 98.7(O); Pulse Ox 98% on R/A; Weight 65.32 kg; ph Height 4 ft. 9 in. ; 16:01 Body Mass Index 31.16 (65.32 kg, 144.78 cm) ph ED Course: 15:51 Patient arrived in ED. rn 15:51 Farhad Hilton MD is Attending Physician. rn 16:01 Anila Teran RN is Primary Nurse. ph 16:08 Triage completed. ph 16:10 Maintain EMS IV. Dressing intact. Good blood return noted. Site clean \\T\\ dry. Gauge \\T\\ hb site: 22g RAC. 16:12 Chest Single View XRAY In Process Unspecified. EDMS 16:12 Patient has correct armband on for positive identification. Bed in low position. Call ph light in reach. Side rails up X2. Client placed on continuous cardiac and pulse oximetry monitoring. NIBP monitoring applied. 16:12 Arm band placed on Patient placed in an exam room, on a stretcher, on pulse oximetry. ph 16:15 COVID-19/FLU A+B Sent. hb 16:40 Radiology exam delayed due to lab results not completed at this time. (BUN/Creatinine). ls3 16:57 No provider procedures requiring assistance completed. ph 17:35 Head Brain Wo Cont In Process Unspecified. EDMS 17:39 CT completed. Patient tolerated procedure well. [id number] 17:[address] In Process Unspecified. EDMS 17:[address] In Process Unspecified. EDMS 19:05 IV discontinued, intact, bleeding controlled, No redness/swelling at site. Pressure ap3 dressing applied. Administered Medications: 16:16 Drug: Meclizine PO 50 mg Route: PO; hb 16:57 Follow up: Response: No adverse reaction ph 16:16 Drug: Ondansetron IVP 4 mg Route: IVP; Site: right antecubital; hb 19:03 Follow up: Response: No adverse reaction ap3 16:16 Drug: NS 0.9% IV 1000 ml Route: IV; Rate: 1000 ml; Site: right antecubital; hb 18:00 Follow up: Response: No adverse reaction; IV Status: Completed infusion; IV Intake: ph 1000ml 19:02 Drug: morphine IVP or IV 4 mg Route: IVP; Infused Over: 4 mins; Site: left antecubital; ap3 19:15 Follow up: Response: No adverse reaction ph Medication: 16:12 VIS not applicable for this client. ph Intake: 18:00 IV: 1000ml; Total: 1000ml. ph Outcome: 18:17 Discharge ordered by . rn 19:04 Discharged to home ambulatory. ap3 19:04 Condition: good 19:04 Discharge instructions given to patient, Instructed on discharge instructions, Demonstrated understanding of instructions, follow-up care, medications, Prescriptions given X 2. 19:22 Patient left the ED. ap3 Signatures: Dispatcher [employer] EDMS Farhad Hilton MD MD rn Hall, Patricia, RN RN ph Baxter, Heather, RN RN Michelle Honeycutt RN RN ap3 Roseann Phipps ls3 Rosi Villalpando [email or web address]
[2022-06-14] MEDS ORDERED: MORPHINE 4 MG/ML SYR ONE (18:58)
[2022-06-14 19:39] VITALS: BP 128/107; TEMP 98.7; O2SAT 98
--- NOTE | 2022-06-15 17:23 | EKG ---
Test Date: 2022-06-14 Test Time: 16:42:12 Evaluation Analyst: PH MEASUREMENT RESULTS: Intervals: Rate: 77 [place]: 142 QRSD: 78 QT: 408 QTc: 461 [place]: P: 34 [place]: 142 QRS: 6 T: 38 INTERPRETIVE STATEMENTS: Normal sinus rhythm Normal ECG Compared to ECG 10/10/2017 15:53:22 No significant changes Electronically Signed On 06-15-22 17:20:44 CDT by Patrick Porras
== END 2022-06-14 19:22 | disposition home or self-care (01) ==
LOC: ER 15:39 → SUPCPDRO 15:39 → ER 19:22
DX: R42 Dizziness and giddiness (principal); R55 Syncope and collapse; Z20.822 Contact with and (suspected) exposure to COVID-19; Z88.1 Allergy status to other antibiotic agents; Z88.2 Allergy status to sulfonamides; Z88.5 Allergy status to narcotic agent; Z88.6 Allergy status to analgesic agent; Z88.8 Allergy status to other drugs, medicaments and biological substances; Z91.013 Allergy to seafood; Z91.048 Other nonmedicinal substance allergy status
CPT/HCPCS: 85025; 81001; 80048; 36415; 83735; 85610; 80076; 85730; 84484; 0240U; 70450; 70496; 70498; 71045; Q9967; J8597; J2405; J7030; 93005; 99284